=== PATIENT | female | born 1950 | race Caucasian/White ===

== ENCOUNTER → 2017-08-21 10:34 | Outpatient (CLI) | payer MEDICARE, OTHER, SELFPAY ==
[2017-08-21 11:58] LABS: INR 3.8 (0.9-1.3)
[2017-08-21 12:04] LABS: Erythrocyte Sedimentation Rate 21 MM/HR (0-20)
[2017-08-21 12:15] LABS: C-Reactive Protein Quant < 0.5 mg/dL (<1.0)
== END ==
PROVIDERS: Family Provider Internal Medicine Cardiovascular Disease; PCP Internal Medicine; Visit Provider Nurse Practitioner
DX: M05.079 Felty's syndrome, unspecified ankle and foot (principal); I48.91 Unspecified atrial fibrillation; Z79.01 Long term (current) use of anticoagulants
CPT/HCPCS: 36415; 85610; 85651; 86140

== ENCOUNTER → 2017-08-28 11:33 | Outpatient (CLI) | payer MEDICARE, OTHER, SELFPAY ==
[2017-08-28 12:31] LABS: Erythrocyte Sedimentation Rate 19 MM/HR (0-20)
[2017-08-28 16:23] LABS: C-Reactive Protein Quant < 0.5 mg/dL (<1.0)
== END ==
PROVIDERS: PCP Internal Medicine; Visit Provider Nurse Practitioner
DX: M05.079 Felty's syndrome, unspecified ankle and foot (principal)
CPT/HCPCS: 36415; 85651; 86140

== ENCOUNTER → 2017-09-02 13:42 | Outpatient (CLI) | payer MEDICARE, OTHER, SELFPAY ==
[2017-09-02 15:04] LABS: INR 3.5 (0.9-1.3); Prothrombin Time 37.1 SECONDS (10.1-12.7)
[2017-09-02 15:14] LABS: Erythrocyte Sedimentation Rate 6 MM/HR (0-20)
[2017-09-02 20:11] LABS: C-Reactive Protein Quant < 0.5 mg/dL (<1.0)
== END ==
PROVIDERS: PCP Internal Medicine; Visit Provider Internal Medicine Rheumatology
DX: I48.91 Unspecified atrial fibrillation (principal); Z79.01 Long term (current) use of anticoagulants; M05.079 Felty's syndrome, unspecified ankle and foot
CPT/HCPCS: 36415; 85610; 85651; 86140

== ENCOUNTER → 2017-09-09 13:18 | Outpatient (CLI) | payer MEDICARE, OTHER, SELFPAY ==
[2017-09-09 14:26] LABS: Erythrocyte Sedimentation Rate 21 MM/HR (0-20)
[2017-09-09 14:30] LABS: INR 2.6 (0.9-1.3); Prothrombin Time 28.5 SECONDS (10.1-12.7)
[2017-09-09 14:50] LABS: C-Reactive Protein Quant < 0.5 mg/dL (<1.0)
== END ==
PROVIDERS: Family Provider Internal Medicine Cardiovascular Disease; PCP Internal Medicine; Visit Provider Nurse Practitioner
DX: I48.91 Unspecified atrial fibrillation (principal); Z79.01 Long term (current) use of anticoagulants; M05.079 Felty's syndrome, unspecified ankle and foot
CPT/HCPCS: 36415; 85610; 85651; 86140

== ENCOUNTER → 2017-09-16 10:15 | Outpatient (CLI) | payer MEDICARE, OTHER, SELFPAY ==
[2017-09-16 11:50] LABS: INR 4.3 (0.9-1.3); Prothrombin Time 46.6 SECONDS (10.1-12.7)
[2017-09-16 12:04] LABS: C-Reactive Protein Quant < 0.5 mg/dL (<1.0)
[2017-09-16 13:09] LABS: Erythrocyte Sedimentation Rate 18 MM/HR (0-20)
== END ==
PROVIDERS: Family Provider Internal Medicine Cardiovascular Disease; PCP Internal Medicine; Visit Provider Nurse Practitioner
DX: I48.91 Unspecified atrial fibrillation (principal); M05.079 Felty's syndrome, unspecified ankle and foot; Z79.01 Long term (current) use of anticoagulants
CPT/HCPCS: 36415; 85610; 85651; 86140

== ENCOUNTER → 2017-10-07 08:11 | Outpatient (CLI) | payer MEDICARE, OTHER, SELFPAY ==
--- NOTE | 2017-10-07 | DI.ECHO.S_ITS ---
[facility] +---------+ : : [address] : : : : [id number] : : : : Phone: [phone]---------+ Echocardiogram Report + + :Name: RON KENNEDY Study Date: 10/07/2017 Height: 60 in : :[facility] Weight: 125 lb : : Gender: Female BSA: 1.5 m2 : :: 1950 Age: 67 yrs BP: 140/96 mmHg: :Reason For Study: Pulmonary - 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 : :Ordering Physician: Dr. Swanson : :Aris Performed By: Neema Dinh : :Referring: LURDES SALGADO : + + Interpretation Summary The left ventricle is normal in size. Left ventricular systolic function is normal without focal wall motion abnormalities. The ejection fraction is estimated to be 55-60%. LVEF has not changed since prior study. Borderline right ventricular enlargement. There is a pacemaker lead in the right ventricle. Right ventricular systolic function is at the lower limits of normal. The right ventricular systolic pressure is estimated at 42 mmHg assuming a right atrial pressure of 3 mm Hg. Compared to the prior echo exam, there has been a decrease in the severity of pulmonary hypertension. The left atrium is severely dilated. The right atrium is severely dilated. There is mild to moderate mitral regurgitation. There is mild aortic regurgitation. There is moderate tricuspid regurgitation. All three have increased since prior study. The ascending aorta is mildly enlarged. Procedure: A two-dimensional transthoracic echocardiogram with color flow and Doppler was performed. The study quality was technically adequate. Comparison is made with the echocardiogram of 04-25-17. The patient has a paced rhythm. Left Ventricle: The left ventricle is normal in size. There is normal left ventricular wall thickness. Left ventricular systolic function is normal without focal wall motion abnormalities. The ejection fraction is estimated to be 55-60%. Diastolic function could not be accurately assessed due to paced rhythm. Right Ventricle: Borderline right ventricular enlargement. There is a pacemaker lead in the right ventricle. Right ventricular systolic function is at the lower limits of normal. Atria: The left atrium is severely dilated. The right atrium is severely dilated. The interatrial septum is intact with no evidence for an atrial septal defect. Mitral Valve: The mitral valve is grossly normal. There is mild to moderate mitral regurgitation. Aortic Valve: The aortic valve opens well. There is mild aortic regurgitation. Tricuspid Valve: The tricuspid valve leaflets are thin and pliable. There is moderate tricuspid regurgitation. The right ventricular systolic pressure is estimated at 42 mmHg assuming a right atrial pressure of 3 mm Hg. Compared to the prior echo exam, there has been a decrease in the severity of pulmonary hypertension. Pulmonic Valve: The pulmonic valve is not well visualized. There is mild pulmonic regurgitation. Great Vessels: The aortic root is normal size. The ascending aorta is mildly enlarged. The aortic arch is normal in size. The IVC is of normal diameter and collapses greater than 50% with a sniff. This suggests a low right atrial pressure of 3 mm Hg. Pericardium/ Pleura There is no pericardial effusion. There is no pleural effusion. MMode/2D Measurements & Calculations LVIDd: 4.2 cm Ao root diam: 3.1 cm LVIDs: 2.9 cm Aortic Jxn: 2.5 cm FS: 30.8 % asc Aorta Diam: 3.6 cm EPSS: 0.74 cm Ao Arch Diam (Prox Trans): 3.1 cm IVSd: 0.87 cm LVPWd: 0.74 cm LV prajapati. diameter/BSA (cm/m^2): 2.8 LV sys. diameter/BSA (cm/m^2): 1.9 LA dimension: 5.0 cm RA long axis: 6.2 cm LA A2 area: 32.1 cm2 RA area: 27.0 cm2 LA A4 area: 32.0 cm2 RA vol: 99.8 ml LA length (vol): 6.8 cm RA : 65.3 ml/m2 LA vol: 128.7 ml IVC diam: 1.6 cm LA vol index: 84.2 ml/m2 RVDd major: 5.6 cm RVD1 (basal): 3.8 cm RVD2 (mid): 3.2 cm TAPSE: 1.9 cm Doppler Measurements & Calculations Ao V2 max: 107.7 cm/sec AI P1/2t: 588.4 msec Ao V2 mean: 72.9 cm/sec AI dec slope: 259.7 cm/sec2 Ao max P.6 mmHg Ao mean P.5 mmHg Ao V2 VTI: 20.6 cm Med Peak E' Jamil: 5.1 cm/sec TR max jamil: 310.5 cm/sec Lat Peak E' Jamil: 11.7 cm/sec TR max P.6 mmHg MV P1/2t: 61.7 msec PA V2 max: 64.4 cm/sec MR ERO: 0.17 cm2 PA V2 mean: 40.6 cm/sec PA mean P.81 mmHg PA Accel Time: 0.09 sec MV V2 mean: 40.9 cm/sec MV P1/2t max jamil: 77.2 cm/sec MV mean P.86 mmHg MVA(P1/2t): 3.6 cm2 MV V2 VTI: 13.4 cm MR flow rate: 114.2 cm3/sec MR PISA radius: 0.69 cm Reading Physician:PM
== END ==
PROVIDERS: Family Provider Internal Medicine Cardiovascular Disease; PCP Internal Medicine; Visit Provider Internal Medicine Critical Care Medicine
DX: I27.20 Pulmonary hypertension, unspecified (principal)
CPT/HCPCS: 93306

== ENCOUNTER → 2017-11-01 08:32 | Outpatient (CLI) | payer MEDICARE, OTHER, SELFPAY ==
[2017-11-01 10:37] LABS: INR 3.2 (0.9-1.3); Prothrombin Time 35.9 SECONDS (10.1-12.7)
[2017-11-01 10:47] LABS: Blood Urea Nitrogen 27 mg/dL (7-17); Calcium 9.4 mg/dL (8.4-10.2); Carbon Dioxide 37 mmol/L (22-32); Chloride 91 mmol/L (98-107); Glucose 108 mg/dL (80-110); HEMOLYSIS < 15 (0-50); Potassium 4.5 mmol/L (3.4-5.1); Sodium 137 mmol/L (137-145)
== END ==
PROVIDERS: PCP Internal Medicine; Visit Provider Internal Medicine
DX: I48.91 Unspecified atrial fibrillation (principal); Z79.01 Long term (current) use of anticoagulants; I10 Essential (primary) hypertension; I27.20 Pulmonary hypertension, unspecified
CPT/HCPCS: 36415; 80048; 85610

== ENCOUNTER → 2017-11-11 09:31 | Outpatient (CLI) | payer MEDICARE, OTHER, SELFPAY | PROVIDERS: Family Provider Internal Medicine Cardiovascular Disease; PCP Internal Medicine; Visit Provider Internal Medicine Rheumatology | DX: M85.851 Other specified disorders of bone density and structure, right thigh (principal); Z78.0 Asymptomatic menopausal state; Z79.52 Long term (current) use of systemic steroids; Z90.722 Acquired absence of ovaries, bilateral | CPT/HCPCS: 77080 ==

== ENCOUNTER → 2017-11-25 11:42 | Outpatient (CLI) | payer MEDICARE, OTHER, SELFPAY ==
[2017-11-25 11:58] LABS: Bacteria Urine None Seen; RBC Urine None Seen (0-5/HPF); WBC Urine None Seen (0-5/HPF)
[2017-11-25 12:31] LABS: Appearance Urine UA CLEAR; Bilirubin Urine UA NEGATIVE (NEGATIVE); Color Urine UA YELLOW; Glucose Urine UA NEGATIVE (Normal); Ketones Urine UA NEGATIVE (NEGATIVE); Leukocyte Esterase Urine UA NEGATIVE (NEGATIVE); Nitrite Urine UA Negative (Negative); Occult Blood Urine UA NEGATIVE (Negative); Protein Urine UA NEGATIVE (Negative); Specific Gravity Urine UA <=1.005 (1.000-1.035); Urobilinogen Urine UA 0.2 E.U./dL (0.2)
[2017-11-25 12:33] LABS: Add Manual Diff / Slide Review NO; Basophils Percent Auto 0.5 % (0-2); Eosinophils Percent Auto 0.7 % (2-4); Hemoglobin 12.6 g/dL (12.0-16.0); Lymphocytes Percent Auto 4.8 % (25-40); Mean Corpuscular HGB Conc 33.2 % (30-36); Mean Corpuscular Hemoglobin 32.4 PG (26-34); Mean Corpuscular Volume 97.6 fL (80-100); Monocytes Percent Auto 6.2 % (3-14); Neutrophils Absolute Auto 6100 /uL (3000-5900); Neutrophils Percent Auto 87.8 % (50-75); Platelet Count 191 X10^3/uL (150-400); Red Cell Distribution Width 13.5 % (11.6-14.8)
[2017-11-25 12:43] LABS: Culture Indicated Urine Cult Not Indicated; Urine Comments Microscopic Normal
[2017-11-25 13:13] LABS: Alanine Aminotransferase 25 IU/L (9-52); Albumin 4.4 g/dL (3.5-5.0); Albumin Globulin Ratio 1.6 (1.0-2.8); Alkaline Phosphatase 53 U/L (38-126); Aspartate Aminotransferase 33 IU/L (14-36); Bilirubin Total 0.8 mg/dL (0.2-1.3); Blood Urea Nitrogen 19 mg/dL (7-17); Calcium 9.3 mg/dL (8.4-10.2); Carbon Dioxide 34 mmol/L (22-32); Chloride 99 mmol/L (98-107); Erythrocyte Sedimentation Rate 18 MM/HR (0-20); Globulin 2.8 g/dL (1.7-4.1); Glucose 88 mg/dL (80-110); HEMOLYSIS < 15 (0-50); Potassium 3.7 mmol/L (3.4-5.1); Sodium 143 mmol/L (137-145); Total Protein 7.2 g/dL (6.3-8.2)
[2017-11-25 13:18] LABS: C-Reactive Protein Quant < 0.5 mg/dL (<1.0)
[2017-11-27 14:18] LABS: DNA (DS) Antibody < 1 IU/mL (< 5)
[2017-11-27 14:38] LABS: Complement C3 116 mg/dL (83-193)
[2017-11-28 07:59] LABS: Complement Total CH50 > 60 U/mL (31-60)
== END ==
PROVIDERS: Family Provider Internal Medicine Rheumatology; PCP Internal Medicine; Visit Provider Internal Medicine Critical Care Medicine
DX: M32.9 Systemic lupus erythematosus, unspecified (principal)
CPT/HCPCS: 36415; 80053; 81001; 85025; 85651; 86140; 86160; 86162; 86225

== ENCOUNTER → 2018-03-10 12:52 | Outpatient (CLI) | payer MEDICARE, OTHER, SELFPAY ==
[2017-12-24 14:02] VITALS: BMI 26.4
--- NOTE | 2018-03-14 14:39 | PM.PFT.1 ---
Pulmonary Function Test Referral & Results Date Patient Seen: 03/10/18 Requesting provider: Hilario Burden Results: The spirometry demonstrates an FVC of 1.60 L which is 60% of predicted. The FEV1 was measured at 1.20 L which is 60% of predicted. The FEV1/FVC ratio was 75 which is 99% of predicted. Following the administration of bronchodilator there was a 17% improvement in FEF 25-75%. Lung volumes show an SVC of 1.77 L which is 60% of predicted. The diffusing capacity was measured at 15.35 which is 75% of predicted. No hemoglobin value was provided, so no correction for potential anemia could be made, if appropriate. The maximum voluntary ventilation was reduced Interpretation: This study demonstrates moderately severe obstructive lung disease with limited evidence of benefit following bronchodilator, particularly small airway flow based on some improvement in FEF 25-75% as above There is also reduction in lung volumes suggesting moderate restrictive lung disease There is also mild to moderate reduction in diffusing capacity suggesting element of disease at the capillary alveolar level.
== END ==
PROVIDERS: Family Provider Internal Medicine Rheumatology; PCP Internal Medicine; Visit Provider Internal Medicine Critical Care Medicine
DX: J44.9 Chronic obstructive pulmonary disease, unspecified (principal)
CPT/HCPCS: 94060; 94726; 94729

== ENCOUNTER 2018-06-23 04:02 | Emergency (ER) | payer MEDICARE, OTHER, SELFPAY ==
[2017-12-24 14:02] VITALS: BMI 26.4
[2018-06-23] VITALS (7 sets, daily range): BP systolic 148–179; BP diastolic 87–135; PULSE 71–81; RESP 16–31; TEMP 36.8; O2SAT 96–100; BMI 25.4
--- NOTE | 2018-06-23 04:06 | DI.RAD.S_ITS ---
PROCEDURE: XR CHEST 1V INDICATIONS: Chest pain TECHNIQUE: One view of the chest was acquired. COMPARISON: [facility], , CHEST 1 VIEW, 03/20/2017, 15:04. FINDINGS: Surgical changes and devices: There is a cardiac pacemaker in appropriate position. Lungs and pleura: Lungs are clear. No pleural effusions or pneumothorax. Mediastinum: Mediastinal contours appear normal. Heart size is moderately increased. Bones and chest wall: No suspicious bony lesions. Overlying soft tissues appear unremarkable. Note is made of bilateral breast prostheses. IMPRESSION: Moderate cardiomegaly. No pulmonary edema. No significant discrepancy with the ER preliminary interpretation. Dictated by: Philip Bang M.D. on 06/23/2018 at 8:26 Approved by: Phiilp Bang M.D. on 06/23/2018 at 8:26
--- NOTE | 2018-06-23 04:07 | ED_ITS ---
HPI - Chest Pain General Chief Complaint: Chest Pain Stated Complaint: CHEST PAIN HAS PACEMAKER Time Seen by Provider: 06/23/18 04:05 Source: patient Mode of arrival: wheelchair Limitations: no limitations History of Present Illness HPI narrative: Patient is a 67-year-old female here for evaluation of left-sided chest pain. She states that she started pain in the left side of her chest that woke her up from sleep approximately 30 min prior to arrival. She states she is short of breath because of this pain. She does have a pacemaker in place secondary to AFib. She states the pain has been consistent since the onset. It is reproducible with touching the left side of her chest. Hurts to the point where she can take a very big deep breath. Has not tried anything for the symptoms prior to arrival Related Data Home Medications Medication Instructions Recorded Confirmed potassium chloride [Klor-Con] 20 meq PO TIDCC #0 03/20/17 11/07/17 prednisone 50 mg PO QAM #0 06/17/17 11/07/17 [CELCEPT] #0 07/22/17 11/07/17 fluticasone propionate-salmeterol 2 puff INHALATION BID 11/07/17 11/07/17 115 mcg-21 mcg/actuation HFA inhaler metoprolol succinate ER 100 mg 100 mg PO BID tab 11/07/17 11/07/17 tablet,extended release 24 hr oxybutynin chloride 5 mg tablet 5 mg PO ONCE tab 11/07/17 11/07/17 sotalol 80 mg tablet 80 mg PO Q12H 11/07/17 11/07/17 Previous Rx's Medication Instructions Recorded furosemide 60 mg PO QAM #270 tab 03/22/17 levothyroxine [Synthroid] 125 mcg PO QDAY #90 tab 08/27/17 lidocaine 4 % topical patch 1 patch TOP Q12H PRN #30 each 11/07/17 lovastatin 20 mg PO HS #90 tab 01/09/18 magnesium oxide 400 mg PO BID #60 tab 01/27/18 warfarin [Coumadin] 3 mg PO QDAY #90 tab 02/24/18 gabapentin [Neurontin] 1 - 2 tab PO TIDP PRN #120 cap 04/21/18 omeprazole 40 mg PO BID #60 cap 06/16/18 cyclobenzaprine 10 mg PO TID PRN #10 tab 06/23/18 Allergies Allergy/AdvReac Type Severity Reaction Status Date / Time doxycycline [DOXYCYCLINE] Allergy Mild HIVES Verified 11/07/17 09:17 Sulfa (Sulfonamide Allergy Mild HIVES Verified 11/07/17 09:17 Antibiotics) [SULFA (SULFONAMIDE ANTIBIOTICS)] tetracycline [TETRACYCLINE] Allergy Mild HIVES Verified 11/07/17 09:17 sulfamethoxazole AdvReac Intermediate UPSET Verified 11/07/17 09:17 [From BACTRIM] STOMACH trimethoprim [From BACTRIM] AdvReac Intermediate UPSET Verified 11/07/17 09:17 STOMACH Review of Systems Constitutional Denies fatigue and Denies headache(s) ENT Ears, Nose, Mouth, and Throat: Denies dizziness and Denies headache(s) Cardiovascular Reports chest pain, Denies rapid heart rate, Denies edema and Denies slow heart rate Respiratory Reports pain on inspiration Gastrointestinal Gastrointestinal: Denies abdominal pain, Denies nausea and Denies vomiting Genitourinary Denies dysuria Musculoskeletal Denies myalgias and Denies arthralgias Integumentary/Breasts Denies rash Neurologic Denies dizziness and Denies headache(s) Endocrine Denies fatigue Hematologic/Lymphatic Denies easy bleeding and Denies easy bruising Allergic/Immunologic Denies urticaria [facility] Medical History Systemic lupus erythematosus (SLE) in adult (Chronic) Pulmonary hypertension (Chronic) COPD (chronic obstructive pulmonary disease) (Chronic) 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 (Chronic 10/26/10) Hyperlipidemia (Chronic 10/26/10) 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/12) Atrial fibrillation (Chronic 08/19/12) Cardiomyopathy (Chronic 09/03/13) Diastolic dysfunction (Chronic 09/03/13) Acquired hypothyroidism (Chronic 09/14/16) CHF (congestive heart failure) (Chronic) Cervical radiculopathy (Chronic) Chronic neutropenia (Chronic 06/18/17) Cubital tunnel syndrome on left (Chronic 2015) Neck pain on left side (Chronic) Pancytopenia (Chronic 2013) Plasma cell dyscrasia (Chronic) SVT (supraventricular tachycardia) (Chronic) 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) Urinary frequency (Chronic) Anemia, normocytic normochromic (Resolved 10/22/16) Cellulitis of right ankle (Resolved 2006) Colon polyps (Resolved 2005) 0 (Resolved) SD (myocardial infarction) (Resolved 08/2011) Measles (Resolved) Mumps (Resolved) Shingles (Resolved 2006) Tachy-ember syndrome (Resolved) Surgical History History of appendectomy (Resolved ~196) History of bone marrow biopsy (Resolved 01/22/17) History of breast augmentation (Resolved ~1979) History of cardiac catheterization (Resolved 08/2011) History of cardioversion (Resolved 08/2011) History of cardioversion (Resolved 09/2016) History of colonoscopy with polypectomy (Resolved 08/20/16) History of esophagogastroduodenoscopy (EGD) (Resolved 08/20/16) History of inguinal hernia repair (Resolved) History of permanent cardiac pacemaker placement (Resolved 2011) History of ventral hernia repair (Resolved) S/P cubital tunnel release (Resolved 2015) S/P total abdominal hysterectomy and bilateral salpingo-oophorectomy (Resolved 1984) Status post tonsillectomy and adenoidectomy (Resolved) Family History Father CAD (coronary artery disease) 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 Acute coronary syndrome Arteriosclerosis Atherosclerosis Brother Hearing deficit Brother Cancer Gout Mother No problems noted. Family/Other Cancer Social History Smoking Status: Never smoker Social History Smoking Status: Never smoker Exam Initial Vital Signs Initial Vital Signs: Vital Signs Temperature 98.2 F 06/23/18 04:18 Pulse Rate 78 06/23/18 04:18 Respiratory Rate 25 H 06/23/18 04:18 Blood Pressure 164/114 H 06/23/18 04:18 Pulse Oximetry 99 06/23/18 04:18 Const General: cooperative, well developed, well groomed and No acute distress Orientation: alert, awake and oriented x3 HENMT Head: normal to inspection and normocephalic Chest Chest: No crepitus and tenderness Other: Tenderness to palpation left lower chest wall and left flank area that she states is the pain that brought her in. Resp Effort & Inspection: normal respiratory effort Auscultation: clear to auscultation bilaterally Cardio Rate: regular rate GI Inspection: non-distended Palpation: soft Skin Lesions: no lesions Rashes: no rashes Neuro General: alert, awake and oriented x3 Cognition: normal cognition Speech: speech normal Extrem General: normal to inspection and capillary refill normal Psych Appearance: grossly normal and well kempt Course Orders Ordered: ED Orders 06/23/18 EKG-12 Lead Stat 06/23/18 04:06 XR chest 1V Stat 06/23/18 04:20 B Type Natriuretic Peptide Stat Complete Blood Count AUTO DIFF Stat Comprehensive Metabolic Panel Stat Lipase Stat Partial Thromboplastin Time Stat Prothrombin Time INR Stat Troponin I Stat 06/23/18 06:26 Troponin I Stat Discontinued Medications Cyclobenzaprine HCl (Flexeril) 10 mg PO NOW ONE Stop: 06/23/18 05:22 Last Admin: 06/23/18 05:44 Dose: 10 mg Ketorolac Tromethamine (Toradol) 30 mg IV NOW ONE Stop: 06/23/18 05:22 Last Admin: 06/23/18 05:44 Dose: 30 mg Morphine Sulfate (Morphine) 4 mg IV NOW ONE Stop: 06/23/18 04:28 Last Admin: 06/23/18 04:39 Dose: 4 mg Vital Signs - 8 hr 06/23/18 04:18 06/23/18 04:33 06/23/18 05:04 Temperature 98.2 F Pulse Rate 78 74 81 Respiratory Rate 25 H 31 H 30 H Blood Pressure 164/114 H Blood Pressure [Left Arm] 171/112 H 179/135 H Pulse Oximetry 99 100 99 06/23/18 05:30 06/23/18 06:00 06/23/18 06:30 Temperature Pulse Rate 71 79 74 Respiratory Rate 29 H 20 28 H Blood Pressure Blood Pressure [Left Arm] 156/87 H 148/102 H 160/97 H Pulse Oximetry 99 96 96 MDM - Chest Pain Lab Data Attestation: I reviewed the patient's lab results. Result diagrams: 06/23/18 04:20 06/23/18 04:20 Lab Results 06/23/18 06/23/18 06/23/18 Range/Units 04:20 04:20 04:20 WBC 7.4 (4.5-11.0) X10^3/uL RBC 4.49 (4.0-5.2) X10^6/uL Hgb 14.3 (12.0-16.0) g/dL Hct 43.6 (36-46) % MCV 97.2 (80-100) fL MCH 31.8 (26-34) PG MCHC 32.7 (30-36) % RDW 13.6 (11.6-14.8) % Plt Count 143 L (150-400) X10^3/uL Neut % (Auto) 87.4 H (50-75) % Lymph % (Auto) 5.9 L (25-40) % Ashley % (Auto) 4.8 (3-14) % Eos % (Auto) 0.8 L (2-4) % Baso % (Auto) 1.1 (0-2) % Neut # (Auto) 6500 (9953-5047) /uL Lymph # (Auto) 400 L (0122-7268) /uL Ashley # (Auto) 400 (0-900) /uL Eos # (Auto) 100 (0-450) /uL Baso # (Auto) 100 (0-100) /uL PT 12.9 H (10.1-12.7) SECONDS INR 1.1 (0.9-1.3) APTT 24 L (26.4-36.2) SECONDS Sodium 139 (137-145) mmol/L Potassium 4.0 (3.4-5.1) mmol/L Chloride 100 (98-107) mmol/L Carbon Dioxide 27 (22-32) mmol/L BUN 14 (7-17) mg/dL Creatinine 0.80 (0.52-1.04) mg/dL Estimated GFR > 60.0 (>60) mL/min BUN/Creatinine Ratio 17.5 (6-22) Glucose 104 (80-110) mg/dL Calcium 9.0 (8.4-10.2) mg/dL Total Bilirubin 0.4 (0.2-1.3) mg/dL AST 37 H (14-36) IU/L ALT 25 (9-52) IU/L Alkaline Phosphatase 72 (38-126) U/L Troponin I < 0.012 (0.01-0.034) ng/mL B-Natriuretic Peptide 265 H (<100) Total Protein 7.9 (6.3-8.2) g/dL Albumin 4.6 (3.5-5.0) g/dL Globulin 3.3 (1.7-4.1) g/dL Albumin/Globulin Ratio 1.4 (1.0-2.8) Lipase 201 (23-300) U/L 06/23/ Range/Units 06:26 WBC (4.5-11.0) X10^3/uL RBC (4.0-5.2) X10^6/uL Hgb (12.0-16.0) g/dL Hct (36-46) % MCV (80-100) fL MCH (26-34) PG MCHC (30-36) % RDW (11.6-14.8) % Plt Count (150-400) X10^3/uL Neut % (Auto) (50-75) % Lymph % (Auto) (25-40) % Ashley % (Auto) (3-14) % Eos % (Auto) (2-4) % Baso % (Auto) (0-2) % Neut # (Auto) (0562-9211) /uL Lymph # (Auto) (2720-3236) /uL Ashley # (Auto) (0-900) /uL Eos # (Auto) (0-450) /uL Baso # (Auto) (0-100) /uL PT (10.1-12.7) SECONDS INR (0.9-1.3) APTT (26.4-36.2) SECONDS Sodium (137-145) mmol/L Potassium (3.4-5.1) mmol/L Chloride (98-107) mmol/L Carbon Dioxide (22-32) mmol/L BUN (7-17) mg/dL Creatinine (0.52-1.04) mg/dL Estimated GFR (>60) mL/min BUN/Creatinine Ratio (6-22) Glucose (80-110) mg/dL Calcium (8.4-10.2) mg/dL Total Bilirubin (0.2-1.3) mg/dL AST (14-36) IU/L ALT (9-52) IU/L Alkaline Phosphatase (38-126) U/L Troponin I 0.013 (0.01-0.034) ng/mL B-Natriuretic Peptide (<100) Total Protein (6.3-8.2) g/dL Albumin (3.5-5.0) g/dL Globulin (1.7-4.1) g/dL Albumin/Globulin Ratio (1.0-2.8) Lipase (23-300) U/L Imaging Data Chest x-ray: Attestation: I personally reviewed and interpreted this imaging study as follows: My impression: No acute process, normal size heart, no pneumothorax, pacemaker leads intact without fractures ECG Data Attestation: I personally reviewed and interpreted this ECG as follows: Prior ECG tracings: not available for review Interpretation: Atrial fibrillation Ventricular rate 84 Normal axis Normal QRS Inverted T-waves 2 [address] T wave changes MDM Narrative Medical decision making narrative: patient with reproducible left-sided chest discomfort localized to the lower ribs. She states that this was the symptoms that brought her into the emergency department. She states that this was the symptoms that was causing her to have problems breathing. There is no rash over the area concerning for zoster. Troponins negative x2. EKG is unremarkable. Chest x-ray is unremarkable, No signs of pneumonia. Given the fact that the symptoms that brought her into the emergency department for reproducible left fl ank pain I do have low suspicion for ACS. She reported improvement after medications here in the ER. Will send home with Toradol. She was given return precautions. She expressed understanding and agreement with plan. Discharge Plan Departure Patient Disposition: Home Clinical Impression: Acute chest wall pain Instructions: DI for Atypical Chest Pain Activity Restrictions/Additional Instructions: Take the medications as directed. Contact her primary care doctor for follow- up. Return to the emergency department for any new or worsening symptoms Prescriptions: New cyclobenzaprine 10 mg tablet 10 mg PO TID PRN (Reason: muscle spasm) Qty: 10 RF: 0 No Action potassium chloride [Klor-Con] 20 MEQ packet 20 meq PO TIDCC Qty: 0 RF: 0 furosemide 20 MG tablet 60 mg PO QAM Qty: 270 RF: 11 prednisone 10 MG tablet 50 mg PO QAM Qty: 0 RF: 0 [CELCEPT] Qty: 0 RF: 0 levothyroxine [Synthroid] 125 mcg tablet 125 mcg PO QDAY Qty: 90 RF: 3 lovastatin 20 mg tablet 20 mg PO HS Qty: 90 RF: 3 magnesium oxide 400 mg (241.3 mg magnesium) tablet 400 mg PO BID Qty: 60 RF: 3 warfarin [Coumadin] 3 mg tablet 3 mg PO QDAY Qty: 90 RF: 0 gabapentin [Neurontin] 300 mg capsule 1 - 2 tab PO TIDP PRNQty: 120 RF: 3 omeprazole 40 mg capsule,delayed release(DR/EC) 40 mg PO BID Qty: 60 RF: 3 oxybutynin chloride 5 mg tablet 5 mg PO ONCE RF: 0 metoprolol succinate 100 mg tablet extended release 24 hr 100 mg PO BID RF: 0 sotalol 80 mg tablet 80 mg PO Q12H RF: 0 fluticasone propion-salmeterol [Advair HFA] 115-21 mcg/actuation HFA aerosol inhaler 2 puff INHALATION BID RF: 0 lidocaine 4 % adhesive patch,medicated 1 patch TOP Q12H PRN (Reason: pain) Qty: 30 RF: 2 Referrals: Sky Hurst MD [Primary Care Provider] -
[2018-06-23 04:28] LABS: Add Manual Diff / Slide Review NO; Basophils Absolute Auto 100 /uL (0-100); Basophils Percent Auto 1.1 % (0-2); Eosinophils Absolute Auto 100 /uL (0-450); Eosinophils Percent Auto 0.8 % (2-4); Hematocrit 43.6 % (36-46); Hemoglobin 14.3 g/dL (12.0-16.0); Lymphocytes Absolute Auto 400 /uL (1100-4500); Lymphocytes Percent Auto 5.9 % (25-40); Mean Corpuscular HGB Conc 32.7 % (30-36); Mean Corpuscular Hemoglobin 31.8 PG (26-34); Mean Corpuscular Volume 97.2 fL (80-100); Monocytes Absolute Auto 400 /uL (0-900); Monocytes Percent Auto 4.8 % (3-14); Neutrophils Absolute Auto 6500 /uL (1500-7000); Neutrophils Percent Auto 87.4 % (50-75); Platelet Count 143 X10^3/uL (150-400); Red Blood Cell Count 4.49 X10^6/uL (4.0-5.2); Red Cell Distribution Width 13.6 % (11.6-14.8); White Blood Cell Count 7.4 X10^3/uL (4.5-11.0)
[2018-06-23 04:34] LABS: INR 1.1 (0.9-1.3); Prothrombin Time 12.9 SECONDS (10.1-12.7)
[2018-06-23 04:37] LABS: PTT Partial Thromboplastin Tim 24 SECONDS (26.4-36.2)
[2018-06-23 04:38] LABS: Alanine Aminotransferase 25 IU/L (9-52); Albumin 4.6 g/dL (3.5-5.0); Albumin Globulin Ratio 1.4 (1.0-2.8); Alkaline Phosphatase 72 U/L (38-126); Aspartate Aminotransferase 37 IU/L (14-36); BUN Creatinine Ratio 17.5 (6-22); Bilirubin Total 0.4 mg/dL (0.2-1.3); Blood Urea Nitrogen 14 mg/dL (7-17); Carbon Dioxide 27 mmol/L (22-32); Chloride 100 mmol/L (98-107); Estimated Glomerular Filt Rate > 60.0 mL/min (>60); Globulin 3.3 g/dL (1.7-4.1); Glucose 104 mg/dL (80-110); HEMOLYSIS < 15 (0-50); Lipase 201 U/L (23-300); Sodium 139 mmol/L (137-145); Total Protein 7.9 g/dL (6.3-8.2)
[2018-06-23] MEDS: MORPHINE 4 MG/ML INJ IV (04:39)
[2018-06-23 04:48] LABS: B Type Natriuretic Peptide 265 (<100)
[2018-06-23 04:49] LABS: Troponin I < 0.012 ng/mL (0.01-0.034)
[2018-06-23] MEDS: CYCLOBENZAPRINE 10 MG TABLET PO (05:44)
[2018-06-23] MEDS: KETOROLAC 60 MG/2 ML VIAL 30 MG IV (05:44)
[2018-06-23 07:04] LABS: Troponin I 0.013 ng/mL (0.01-0.034)
== END 2018-06-23 07:50 | disposition home or self-care (01) ==
PROVIDERS: Emergency Provider Emergency Medicine; Family Provider Internal Medicine Rheumatology; PCP Internal Medicine
DX: R07.89 Other chest pain (principal); R06.02 Shortness of breath; Z95.0 Presence of cardiac pacemaker
CPT/HCPCS: 36415; 36591; 71045; 80053; 83690; 83880; 84484; 85025; 85610; 85730; 93005; 96374; 96375; 99284; 99285; J1885; J2270

== ENCOUNTER 2018-06-25 09:05 | Emergency (ER) | payer MEDICARE, OTHER, SELFPAY ==
[2017-12-24 14:02] VITALS: BMI 26.4
[2018-06-25 09:16] VITALS: BP 159/86; PULSE 76; RESP 18; TEMP 36.6; O2SAT 100
--- NOTE | 2018-06-25 10:48 | DI.RAD.S_ITS ---
PROCEDURE: XR RIBS LT MIN 3V W CXR1V INDICATIONS: pain fall 2 days ago TECHNIQUE: 2 views of the left ribs were acquired, along with a single view chest. COMPARISON: None. FINDINGS: Surgical changes and devices: Left chest wall cardiac device leads are seen in the region of right atrium and right ventricle. Left breast implant is seen. Bones and chest wall: No fractures or dislocations. No suspicious bony lesions. Overlying soft tissues appear unremarkable. Lungs and pleura: No pleural effusions or pneumothorax. Lungs appear clear. The no focal infiltrate. Linear scarring/atelectasis in left midlung field is seen Mediastinum: Mediastinal contours appear normal. Heart size is enlarged. IMPRESSION: No definite displaced left rib fracture is seen. Linear scarring/atelectasis in left mid to lower lung field. No focal infiltrate, pleural effusion or pneumothorax. Dictated by: Wayne Powell M.D. on 06/25/2018 at 11:26 Approved by: Wayne Powell M.D. on 06/25/2018 at 11:30
[2018-06-25] MEDS: KETOROLAC 60 MG/2 ML VIAL 30 MG IM (11:22)
[2018-06-25 11:30] VITALS: BP 157/107; PULSE 79; RESP 21; O2SAT 99
--- NOTE | 2018-06-25 11:32 | PC.NURSE ---
reports, had a fall 3 days ago. reports, with sweaty with pain.
--- NOTE | 2018-06-25 11:32 | PC.NURSE ---
reports, fall 3 days ago, now with left rib, radiating to the back. hurts worsen with movement, denies vomiting.
[2018-06-25 11:37] LABS: Add Manual Diff / Slide Review NO; Basophils Absolute Auto 100 /uL (0-100); Basophils Percent Auto 1.2 % (0-2); Eosinophils Absolute Auto 100 /uL (0-450); Eosinophils Percent Auto 2.6 % (2-4); Hematocrit 41.6 % (36-46); Hemoglobin 13.9 g/dL (12.0-16.0); Lymphocytes Absolute Auto 400 /uL (1100-4500); Lymphocytes Percent Auto 8.1 % (25-40); Mean Corpuscular HGB Conc 33.3 % (30-36); Monocytes Absolute Auto 500 /uL (0-900); Monocytes Percent Auto 10.5 % (3-14); Neutrophils Absolute Auto 4100 /uL (1500-7000); Neutrophils Percent Auto 77.6 % (50-75); Platelet Count 127 X10^3/uL (150-400); Red Blood Cell Count 4.34 X10^6/uL (4.0-5.2); Red Cell Distribution Width 13.4 % (11.6-14.8); White Blood Cell Count 5.2 X10^3/uL (4.5-11.0)
[2018-06-25 11:50] LABS: Alanine Aminotransferase 23 IU/L (9-52); Albumin 4.5 g/dL (3.5-5.0); Albumin Globulin Ratio 1.3 (1.0-2.8); Alkaline Phosphatase 56 U/L (38-126); Aspartate Aminotransferase 33 IU/L (14-36); Bilirubin Total 1.2 mg/dL (0.2-1.3); Blood Urea Nitrogen 14 mg/dL (7-17); Carbon Dioxide 29 mmol/L (22-32); Chloride 100 mmol/L (98-107); Creatine Kinase 148 U/L (30-135); Estimated Glomerular Filt Rate > 60.0 mL/min (>60); Globulin 3.4 g/dL (1.7-4.1); Glucose 77 mg/dL (80-110); Lipase 72 U/L (23-300); Potassium 4.4 mmol/L (3.4-5.1); Sodium 138 mmol/L (137-145); Total Protein 7.9 g/dL (6.3-8.2)
[2018-06-25 12:02] LABS: Troponin I < 0.012 ng/mL (0.01-0.034)
[2018-06-25 12:07] LABS: HEMOLYSIS 66 (0-50)
[2018-06-25 12:47] VITALS: BP 158/99; PULSE 74; RESP 25; O2SAT 100
--- NOTE | 2018-06-25 13:16 | ED_ITS ---
HPI - Chest Pain General Chief Complaint: Chest Pain Stated Complaint: ABD/BACK PAIN Time Seen by Provider: 06/25/18 10:28 Source: patient and old records reviewed Mode of arrival: ambulatory Limitations: no limitations History of Present Illness HPI narrative: Patient is a 67-year-old female presents with left-sided chest pain. She was seen evaluated here few days ago. She actually fell then started having some left chest pain hurts every time she moves or breathes She has these spasms across her left chest. He denies any heart palpitations or shortness of breath with exertion. She was given Flexeril to help with the muscle spasm he says it does not seem to be working. MD complaint: chest pain Duration: intermittent Related Data Home Medications Medication Instructions Recorded Confirmed potassium chloride [Klor-Con] 20 meq PO TIDCC #0 03/20/17 11/07/17 prednisone 50 mg PO QAM #0 06/17/17 11/07/17 [CELCEPT] #0 07/22/17 11/07/17 fluticasone propionate-salmeterol 2 puff INHALATION BID 11/07/17 11/07/17 115 mcg-21 mcg/actuation HFA inhaler metoprolol succinate ER 100 mg 100 mg PO BID tab 11/07/17 11/07/17 tablet,extended release 24 hr oxybutynin chloride 5 mg tablet 5 mg PO ONCE tab 11/07/17 11/07/17 sotalol 80 mg tablet 80 mg PO Q12H 11/07/17 11/07/17 Previous Rx's Medication Instructions Recorded furosemide 60 mg PO QAM #270 tab 03/22/17 levothyroxine [Synthroid] 125 mcg PO QDAY #90 tab 08/27/17 lidocaine 4 % topical patch 1 patch TOP Q12H PRN #30 each 11/07/17 lovastatin 20 mg PO HS #90 tab 01/09/18 magnesium oxide 400 mg PO BID #60 tab 01/27/18 warfarin [Coumadin] 3 mg PO QDAY #90 tab 02/24/18 gabapentin [Neurontin] 1 - 2 tab PO TIDP PRN #120 cap 04/21/18 omeprazole 40 mg PO BID #60 cap 06/16/18 cyclobenzaprine 10 mg PO TID PRN #10 tab 06/23/18 cyclobenzaprine 5 mg PO TID PRN #14 tab 06/25/18 lidocaine 1 patch TOP DAILY PRN #30 each 06/25/18 Allergies Allergy/AdvReac Type Severity Reaction Status Date / Time doxycycline [DOXYCYCLINE] Allergy Mild HIVES Verified 11/07/17 09:17 Sulfa (Sulfonamide Allergy Mild HIVES Verified 11/07/17 09:17 Antibiotics) [SULFA (SULFONAMIDE ANTIBIOTICS)] tetracycline [TETRACYCLINE] Allergy Mild HIVES Verified 11/07/17 09:17 sulfamethoxazole AdvReac Intermediate UPSET Verified 11/07/17 09:17 [From BACTRIM] STOMACH trimethoprim [From BACTRIM] AdvReac Intermediate UPSET Verified 11/07/17 09:17 STOMACH Review of Systems Review of Systems GENERAL: Denies chills, fatigue, malaise, fever, sweats, travel HEENT: Denies sinus pain, ear pain, sore throat, difficulty swallowing, neck pain RESPIRATORY: Denies dyspnea, cough, wheezing, hemoptysis, sputum. CARDIOVASCULAR: See HPI GASTROINTESTINAL: Denies nausea, vomiting, abdominal pain, diarrhea, constipation, melena. : Denies dysuria, frequency, incontinence, hematuria, urinary retention, flank pain. MUSCULOSKELETAL: Denies weakness, joint pain, or bony pain SKIN: No rash, no erythema, no pruritus NEUROLOGIC: Denies weakness, dizziness, headache, numbness, change in speech, confusion PSYCHIATRIC: No concerning psychosocial issues. 12 point review of systems is negative except for those stated above and HPI [facility] Medical History Systemic lupus erythematosus (SLE) in adult (Chronic) Pulmonary hypertension (Chronic) COPD (chronic obstructive pulmonary disease) (Chronic) 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 (Chronic 10/26/10) Hyperlipidemia (Chronic 10/26/10) USP current use of anticoagulant therapy (Chronic 08/19/12) Atrial fibrillation (Chronic 08/19/12) Cardiomyopathy (Chronic 09/03/13) Diastolic dysfunction (Chronic 09/03/13) Acquired hypothyroidism (Chronic 09/14/16) CHF (congestive heart failure) (Chronic) Cervical radiculopathy (Chronic) Chronic neutropenia (Chronic 06/18/17) Cubital tunnel syndrome on left (Chronic 2015) Neck pain on left side (Chronic) Pancytopenia (Chronic 2013) Plasma cell dyscrasia (Chronic) SVT (supraventricular tachycardia) (Chronic) 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) Urinary frequency (Chronic) Anemia, normocytic normochromic (Resolved 10/22/16) Cellulitis of right ankle (Resolved 2006) Colon polyps (Resolved 2005) 0 (Resolved) IN (myocardial infarction) (Resolved 08/2011) Measles (Resolved) Mumps (Resolved) Shingles (Resolved 2006) Tachy-ember syndrome (Resolved) Surgical History History of appendectomy (Resolved ~1960) History of bone marrow biopsy (Resolved 01/22/17) History of breast augmentation (Resolved ~1979) History of cardiac catheterization (Resolved 08/2011) History of cardioversion (Resolved 08/2011) History of cardioversion (Resolved 09/2016) History of colonoscopy with polypectomy (Resolved 08/20/16) History of esophagogastroduodenoscopy (EGD) (Resolved 08/20/16) History of inguinal hernia repair (Resolved) History of permanent cardiac pacemaker placement (Resolved 2011) History of ventral hernia repair (Resolved) S/P cubital tunnel release (Resolved 2015) S/P total abdominal hysterectomy and bilateral salpingo-oophorectomy (Resolved 1984) Status post tonsillectomy and adenoidectomy (Resolved) Family History (Updated 01/27/18 @ 09:41 by Ale Trotter) Father CAD (coronary artery disease) 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 Acute coronary syndrome Arteriosclerosis Atherosclerosis Brother Hearing deficit Brother Cancer Gout Mother No problems noted. Family/Other Cancer Social History Smoking Status: Never smoker Family History Father CAD (coronary artery disease) 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 Acute coronary syndrome Arteriosclerosis Atherosclerosis Brother Hearing deficit Brother Cancer Gout Mother No problems noted. Family/Other Cancer Social History Smoking Status: Never smoker Exam Initial Vital Signs Initial Vital Signs: Vital Signs Temperature 97.8 F 06/25/18 09:16 Pulse Rate 76 06/25/18 09:16 Respiratory Rate 18 06/25/18 09:16 Blood Pressure 159/86 H 06/25/18 09:16 Pulse Oximetry 100 06/25/18 09:16 GENERAL: Alert female and O x3 HEENT: Head atraumatic,EOMI, pupils reactive, CARDIOVASCULAR: Regular rate and rhythm without murmurs, rubs or gallops. Chest is tender left anterior side to palpation. While during exam is obvious she gets spasms and is in quite a bit of pain. RESPIRATORY: Breath sounds equal bilaterally, no wheezes rales or rhonchi. ABDOMEN: Soft, nontender. Normoactive bowel sounds all 4 quadrants. No guarding or rebound. EXTREMITIES: Normal range of motion, no clubbing or edema. Neurovascularly intact NEUROLOGICAL: Alert and oriented x4.Normal gait and speech. Cranial nerves II through XII grossly intact. SKIN: Warm, dry, no laceration, no petechiae, no rashes or lesions. Course Orders Ordered: Discontinued Medications Ketorolac Tromethamine (Toradol) 30 mg IM NOW ONE Stop: 06/25/18 10:49 Last Admin: 06/25/18 11:22 Dose: 30 mg Vital Signs - 8 hr 06/25/18 09:16 06/25/18 11:30 06/25/18 12:47 Temperature 97.8 F Pulse Rate 76 79 74 Respiratory Rate 18 21 25 H Blood Pressure 159/86 H Blood Pressure [Left Arm] 157/107 H 158/99 H Pulse Oximetry 100 99 100 06/25/18 13:37 Temperature Pulse Rate 73 Respiratory Rate 19 Blood Pressure Blood Pressure [Left Arm] 155/93 H Pulse Oximetry 98 MDM - Chest Pain Lab Data Attestation: I reviewed the patient's lab results. Result diagrams: 06/25/18 11:30 06/25/18 11:30 Lab Results 06/25/18 06/25/18 06/25/18 Range/Units 11:30 11:30 11:30 WBC 5.2 (4.5-11.0) X10^3/uL RBC 4.34 (4.0-5.2) X10^6/uL Hgb 13.9 (12.0-16.0) g/dL Hct 41.6 (36-46) % MCV 96.0 (80-100) fL MCH 32.0 (26-34) PG MCHC 33.3 (30-36) % RDW 13.4 (11.6-14.8) % Plt Count 127 L (150-400) X10^3/uL Neut % (Auto) 77.6 H (50-75) % Lymph % (Auto) 8.1 L (25-40) % [place]lier % (Auto) 10.5 (3-14) % Eos % (Auto) 2.6 (2-4) % Baso % (Auto) 1.2 (0-2) % Neut # (Auto) 4100 (3492-4682) /uL Lymph # (Auto) 400 L (9908-7144) /uL Collier # (Auto) 500 (0-900) /uL Eos # (Auto) 100 (0-450) /uL Baso # (Auto) 100 (0-100) /uL PT 15.8 H (10.1-12.7) SECONDS INR 1.4 H (0.9-1.3) Sodium 138 (137-145) mmol/L Potassium 4.4 (3.4-5.1) mmol/L Chloride 100 (98-107) mmol/L Carbon Dioxide 29 (22-32) mmol/L BUN 14 (7-17) mg/dL Creatinine 0.70 (0.52-1.04) mg/dL Estimated GFR > 60.0 (>60) mL/min BUN/Creatinine Ratio 20.0 (6-22) Glucose 77 L (80-110) mg/dL Calcium 9.0 (8.4-10.2) mg/dL Total Bilirubin 1.2 (0.2-1.3) mg/dL AST 33 (14-36) IU/L ALT 23 (9-52) IU/L Alkaline Phosphatase 56 (38-126) U/L Total Creatine Kinase 148 H (30-135) U/L CK-MB (CK-2) 1.50 (<2.37) ng/mL CK-MB (CK-2) Rel Index 1.0 L (1.5-5.0) % Troponin I < 0.012 (0.01-0.034) ng/mL Total Protein 7.9 (6.3-8.2) g/dL Albumin 4.5 (3.5-5.0) g/dL Globulin 3.4 (1.7-4.1) g/dL Albumin/Globulin Ratio 1.3 (1.0-2.8) Lipase 72 D (23-300) U/L Urine Dip Bedside Urine Glucose Negative Bedside Urine Bilirubin - Negative Bedside Urine Ketone - Negative Urine Specific [place] 1.015 Bedside Urine Occult Blood - Negative Bedside Urine pH 6.0 Bedside Urine Protein - Negative Bedside Urine Urobilinogen - Negative Bedside Urine Nitrite - Negative Bedside Urine Leukocytes - Negative Esterase Imaging Data Rib x-ray: Radiologist's impression: ROCEDURE: XR RIBS LT MIN 3V W CXR1V INDICATIONS: pain fall 2 days ago TECHNIQUE: 2 views of the left ribs were acquired, along with a single view chest. COMPARISON: None. FINDINGS: Surgical changes and devices: Left chest wall cardiac device leads are seen in the region of right atrium and right ventricle. Left breast implant is seen. Bones and chest wall: No fractures or dislocations. No suspicious bony lesions. Overlying soft tissues appear unremarkable. Lungs and pleura: No pleural effusions or pneumothorax. Lungs appear clear. The no focal infiltrate. Linear scarring/atelectasis in left midlung field is seen Mediastinum: Mediastinal contours appear normal. Heart size is enlarged. IMPRESSION: No definite displaced left rib fracture is seen. Linear scarring/atelectasis in left mid to lower lung field. No focal infiltrate, pleural effusion or pneumothorax. Dictated by: Wayne Powell M.D. on 06/25/2018 at 11:26 Approved by: Wayne Powell M.D. on 06/25/2018 at 11:30 ECG Data Interpretation: EKG 1. Sinus rhythm rate 78 artifact noted in V5 however she does have significant T-wave inversions in V6 which are worse than prior. EKG 2. Paced rhythm rate 70 similar to previous EKG MDM Narrative Medical decision making narrative: Patient's pain started after a fall is worth with movement reproducible with palpation better after Toradol. At this time th is is likely musculoskeletal pain. She initially was thought to have some EKG changes but there was significant artifact, now she is back to her paced rhythm. I think what was seen on the 1st EKG is underlying rhythm. He has a negative troponin her symptoms are consistent with musculoskeletal pain. She is on Coumadin, for that reason I do not recommend NSAIDs, recommended trying lidocaine patches, and a muscle relaxer. Both and patient agree they understand when to return to the ED and follow up with her PCP. Discharge Plan Departure Patient Disposition: Home Clinical Impression: Acute costochondritis Discharge Date/Time: 06/25/18 13:48 Interventions: ED Discharge Assessment Last Done: 06/25/18 13:48 Instructions: Costochondritis Activity Restrictions/Additional Instructions: *You have been diagnosed with acute costochondritis *What to do: your symptoms are consistent with of rib sprain and strain. *Continue to take medications as directed--> [facility] Lidocaine patch apply to affected area for 12 hr only and then removed. Cyclobenzaprine every 8 hr only if needed for muscle spasm A Tylenol 650 mg every 4-6 hours if needed for pain *Follow up with your primary care provider in 2-3 days *Return to ER if you should have increasing pain, increasing shortness of breath work and x-ray do not show any sign of fracture. or any new, worsening or concerning symptoms Prescriptions: New lidocaine 5 % adhesive patch,medicated 1 patch TOP DAILY PRN (Reason: pain (scale score 4-6)) Qty: 30 RF: 0 cyclobenzaprine 5 mg tablet 5 mg PO TID PRN (Reason: muscle spasm) Qty: 14 RF: 0 No Action potassium chloride [Klor-Con] 20 MEQ packet 20 meq PO TIDCC Qty: 0 RF: 0 furosemide 20 MG tablet 60 mg PO QAM Qty: 270 RF: 11 prednisone 10 MG tablet 50 mg PO QAM Qty: 0 RF: 0 [CELCEPT] Qty: 0 RF: 0 levothyroxine [Synthroid] 125 mcg tablet 125 mcg PO QDAY Qty: 90 RF: 3 lovastatin 20 mg tablet 20 mg PO HS Qty: 90 RF: 3 magnesium oxide 400 mg (241.3 mg magnesium) tablet 400 mg PO BID Qty: 60 RF: 3 warfarin [Coumadin] 3 mg tablet 3 mg PO QDAY Qty: 90 RF: 0 gabapentin [Neurontin] 300 mg capsule 1 - 2 tab PO TIDP PRNQty: 120 RF: 3 omeprazole 40 mg capsule,delayed release(DR/EC) 40 mg PO BID Qty: 60 RF: 3 cyclobenzaprine 10 mg tablet 10 mg PO TID PRN (Reason: muscle spasm) Qty: 10 RF: 0 oxybutynin chloride 5 mg tablet 5 mg PO ONCE RF: 0 metoprolol succinate 100 mg tablet extended release 24 hr 100 mg PO BID RF: 0 sotalol 80 mg tablet 80 mg PO Q12H RF: 0 fluticasone propion-salmeterol [Advair HFA] 115-21 mcg/actuation HFA aerosol inhaler 2 puff INHALATION BID RF: 0 lidocaine 4 % adhesive patch,medicated 1 patch TOP Q12H PRN (Reason: pain) Qty: 30 RF: 2 Referrals: Sky Hurst MD [Primary Care Provider] -
[2018-06-25 13:29] LABS: INR 1.4 (0.9-1.3); Prothrombin Time 15.8 SECONDS (10.1-12.7)
[2018-06-25 13:37] VITALS: BP 155/93; PULSE 73; RESP 19; O2SAT 98
== END 2018-06-25 13:48 | disposition home or self-care (01) ==
PROVIDERS: Emergency Provider Emergency Medicine; Family Provider Internal Medicine Rheumatology; PCP Internal Medicine
DX: M94.0 Chondrocostal junction syndrome [Tietze] (principal)
CPT/HCPCS: 36591; 71101; 80053; 81003; 82550; 82553; 83690; 84484; 85025; 85610; 93005; 96372; 99283; 99285; J1885

== ENCOUNTER → 2018-07-16 14:01 | Outpatient (CLI) | payer MEDICARE, OTHER, SELFPAY ==
[2017-12-24 14:02] VITALS: BMI 26.4
[2018-07-16 14:51] LABS: INR 2.4 (0.9-1.3); Prothrombin Time 27.8 SECONDS (10.1-12.7)
== END ==
PROVIDERS: Family Provider Internal Medicine Rheumatology; PCP Internal Medicine; Visit Provider Internal Medicine
DX: I48.91 Unspecified atrial fibrillation (principal); Z79.01 Long term (current) use of anticoagulants
CPT/HCPCS: 36415; 85610

== ENCOUNTER → 2018-10-20 10:54 | Outpatient (CLI) | payer MEDICARE, OTHER, SELFPAY ==
[2017-12-24 14:02] VITALS: BMI 26.4
--- NOTE | 2018-10-20 | DI.RAD.S_ITS ---
PROCEDURE: XR HAND RT 2V INDICATIONS: RA STUDY TECHNIQUE: 2 views of the hand(s) acquired. COMPARISON: None. FINDINGS: Bones: No fractures or dislocations. There is minimal distal interphalangeal degenerative osteoarthritis as indicated by joint space narrowing, and at the base of the first and second metacarpal bones moderate degenerative osteoarthritis can be seen but no erosive arthritis is suspected. Carpal bones are normally aligned. No suspicious bony lesions. Soft tissues: No suspicious soft tissue calcifications. IMPRESSION: Mild to moderate degenerative osteoarthritis, without evidence of erosive arthritis superimposed. Dictated by: Chris Cross M.D. on 10/20/2018 at 11:49 Approved by: Chris Cross M.D. on 10/20/2018 at 11:50
--- NOTE | 2018-10-20 | DI.RAD.S_ITS ---
PROCEDURE: XR HAND LT 2V INDICATIONS: RA of multiple sites TECHNIQUE: 3 views of the hand(s) acquired. COMPARISON: None. FINDINGS: Bones: No fractures or dislocations. Carpal bones are abnormally aligned with narrowing of the inner carpal articulations as indicated by generalized osteoarthritic change, and associated subluxation of the base of the first metacarpal is moderate against the distal trapezium. Note is made of a bone island at the middle third of the scaphoid bone, measuring approximately 4 mm in diameter. No erosive arthritis is seen. Moderate interphalan shield degenerative osteoarthritic joint space narrowing is present from digits 2 through 5.. No suspicious bony lesions. Soft tissues: No suspicious soft tissue calcifications. IMPRESSION: Moderately severe osteoarthritis overall, best seen at the base of the first metacarpal, where subluxation is associated laterally. No erosive arthritis is found. Dictated by: Chris Cross M.D. on 10/20/2018 at 11:50 Approved by: Chris Cross M.D. on 10/20/2018 at 11:52
== END ==
PROVIDERS: Family Provider Internal Medicine Rheumatology; PCP Internal Medicine; Visit Provider Internal Medicine Rheumatology
DX: M05.79 Rheumatoid arthritis with rheumatoid factor of multiple sites without organ or systems involvement (principal); M19.041 Primary osteoarthritis, right hand; M19.042 Primary osteoarthritis, left hand
CPT/HCPCS: 73120

== ENCOUNTER → 2018-12-04 11:56 | Outpatient (CLI) | payer MEDICARE, OTHER, SELFPAY ==
[2017-12-24 14:02] VITALS: BMI 26.4
[2018-12-04 13:11] LABS: Add Manual Diff / Slide Review NO; Basophils Absolute Auto 100 /uL (0-100); Basophils Percent Auto 1.2 % (0-2); Eosinophils Absolute Auto 100 /uL (0-450); Hematocrit 42.1 % (36-46); Lymphocytes Absolute Auto 300 /uL (1100-4500); Lymphocytes Percent Auto 4.9 % (25-40); Mean Corpuscular HGB Conc 33.2 % (30-36); Mean Corpuscular Hemoglobin 31.8 PG (26-34); Mean Corpuscular Volume 95.8 fL (80-100); Monocytes Absolute Auto 400 /uL (0-900); Monocytes Percent Auto 6.6 % (3-14); Neutrophils Absolute Auto 4700 /uL (1500-7000); Neutrophils Percent Auto 86.3 % (50-75); Platelet Count 173 X10^3/uL (150-400); White Blood Cell Count 5.5 X10^3/uL (4.5-11.0)
[2018-12-04 13:30] LABS: B Type Natriuretic Peptide 915 (<100)
[2018-12-04 13:43] LABS: BUN Creatinine Ratio 28.8 (6-22); Blood Urea Nitrogen 23 mg/dL (7-17); Calcium 9.6 mg/dL (8.4-10.2); Carbon Dioxide 34 mmol/L (22-32); Chloride 96 mmol/L (98-107); Estimated Glomerular Filt Rate > 60.0 mL/min (>60); Glucose 98 mg/dL (80-110); HEMOLYSIS < 15 (0-50); Magnesium 1.8 mg/dL (1.6-2.3); Potassium 4.5 mmol/L (3.4-5.1); Sodium 141 mmol/L (137-145)
== END ==
PROVIDERS: PCP Internal Medicine; Visit Provider Internal Medicine
DX: I27.20 Pulmonary hypertension, unspecified (principal); I42.9 Cardiomyopathy, unspecified; J44.9 Chronic obstructive pulmonary disease, unspecified; Z79.01 Long term (current) use of anticoagulants
CPT/HCPCS: 36415; 80048; 83735; 83880; 85025

== ENCOUNTER → 2019-09-18 09:16 | Outpatient (CLI) | payer MEDICARE, OTHER, SELFPAY ==
[2019-07-29 12:29] VITALS: BMI 26.4
[2019-09-18 10:55] LABS: BUN Creatinine Ratio 22.5 (6-22); Blood Urea Nitrogen 20 mg/dL (7-17); Calcium 9.8 mg/dL (8.4-10.2); Carbon Dioxide 34 mmol/L (22-32); Chloride 94 mmol/L (98-107); Estimated Glomerular Filt Rate > 60.0 mL/min (>60); Glucose 82 mg/dL (80-110); HEMOLYSIS < 15 (0-50); Potassium 4.4 mmol/L (3.4-5.1); Sodium 136 mmol/L (137-145)
== END ==
PROVIDERS: PCP Internal Medicine; Referring Provider Internal Medicine; Visit Provider Internal Medicine
DX: I10 Essential (primary) hypertension (principal); I27.20 Pulmonary hypertension, unspecified; R60.9 Edema, unspecified
CPT/HCPCS: 36415; 80048; 83735

== ENCOUNTER → 2019-10-05 09:31 | Outpatient (CLI) | payer MEDICARE, OTHER, SELFPAY ==
[2019-07-29 12:29] VITALS: BMI 26.4
--- NOTE | 2019-10-05 09:40 | DI.ECHO.S_ITS ---
Echocardiogram Report + + :Name: RON KENNEDY Study Date: 10/05/2019 Height: 60 in : :[facility] Weight: 150 lb : : Gender: Female BSA: 1.7 m2 : :: 1950 Age: 69 yrs BP: 152/88 mmHg: :Reason For Study: ATRIAL FLUTTER : :Ordering Physician: PEGGY HEMPHILL : :Justin Bustos Performed By: Melba Manjarrez : :Referring: PEGGY HEMPHILL : + + Interpretation Summary The left ventricle is normal in size and wall thickness. Left ventricular ejection fraction is estimated to be 45 +/- 5%. Compared to the prior exam, the left ventricular function is reduced. The right ventricle is normal size. Right ventricular systolic function is moderately reduced. Right ventricular systolic function has decreased since previous exam. There is a pacemaker lead in the right ventricle. There is mild to moderate mitral regurgitation. Compared to the prior echo study, there has been no change in the severity of mitral regurgitation There is moderate to severe tricuspid regurgitation. Hepatic vein flow reversal noted. Compared to the prior echo exam, there has been an increase in TR severity. The right ventricular systolic pressure is estimated to be at least 79 mmHg based on an estimated right atrial pressure of 15 mm Hg. There is severe pulmonary hypertension. Compared to the prior echo exam, there has been an increase in the severity of pulmonary hypertension. The ascending aorta is mildly enlarged. . Procedure: A two-dimensional transthoracic echocardiogram with color flow and Doppler was performed. The study quality was technically adequate. Comparison is made with the echocardiogram of 10/07/2017. The patient has a paced rhythm. The heart rate ranged between 75 bpm during the study. Left Ventricle: The left ventricle is normal in size and wall thickness. There is no thrombus. A false chord is noted (normal variant). Left ventricular ejection fraction is estimated to be 45 +/- 5%. Compared to the prior exam, the left ventricular function is reduced. The interventricular septum is flattened, consistent with a right ventricular pressure/volume condition. There is mild global hypokinesis of the left ventricle. Diastolic function could not be accurately assessed due to paced rhythm. Right Ventricle: There is a pacemaker lead in the right ventricle. The right ventricle is normal size. Right ventricular systolic function is moderately reduced. Right ventricular systolic function has decreased since previous exam. Atria: Both atria are severely dilated. Both atria have remained unchanged in size since the prior echo exam. There is a catheter/pacemaker lead seen in the right atrium. There is no Doppler evidence for an interatrial shunt. Mitral Valve: There is a flat closure plane of the the mitral valve leaflets. There is mild mitral annular calcification. The mitral valve chordae are thickened and/or calcified. There is mild to moderate mitral regurgitation. Compared to the prior echo study, there has been no change in the severity of mitral regurgitation. Aortic Valve: The aortic valve is mildly calcified. The aortic valve is not well visualized. There is no aortic valve stenosis. There is mild aortic regurgitation. Tricuspid Valve: The tricuspid valve leaflets are thin and pliable. There is moderate to severe tricuspid regurgitation. Hepatic vein flow reversal noted. The right ventricular systolic pressure is estimated to be at least 79 mmHg based on an estimated right atrial pressure of 15 mm Hg. There is severe pulmonary hypertension. Compared to the prior echo exam, there has been an increase in TR severity. Compared to the prior echo exam, there has been an increase in the severity of pulmonary hypertension. Pulmonic Valve: The pulmonic valve is not well seen, but is grossly normal. There is mild pulmonic regurgitation. Great Vessels: The aortic root is normal size. The ascending aorta is mildly enlarged. There has been no significant change since the previous study. The IVC is dilated (diameter is greater than 2.1 cm) and it collapses less than 50% with a sniff. This suggests a high right atrial pressure of 15 mm Hg. Pericardium/ Pleura There is no pericardial effusion. There is no pleural effusion. MMode/2D Measurements & Calculations LVIDd: 4.7 cm LVOT diam: 1.9 cm LVIDs: 4.1 cm Ao root diam: 2.4 cm FS: 14.3 % asc Aorta Diam: 3.7 cm EPSS: 0.99 cm IVSd: 0.93 cm LVPWd: 0.96 cm LV prajapati. diameter/BSA (cm/m^2): 2.9 LV sys. diameter/BSA (cm/m^2): 2.5 LA A2 area: 28.8 cm2 RA long axis: 6.8 cm LA A4 area: 33.9 cm2 RA area: 32.4 cm2 LA length (vol): 6.8 cm RA vol: 130.9 ml LA vol: 122.0 ml RA : 79.2 ml/m2 LA vol index: 73.8 ml/m2 IVC diam: 2.4 cm RVD1 (basal): 3.8 cm TAPSE: 1.3 cm Doppler Measurements & Calculations Ao V2 max: 98.8 cm/sec LVOT Max Jamil: 50.9 cm/sec Ao V2 mean: 62.1 cm/sec LV V1 max P.0 mmHg Ao max P.9 mmHg LV V1 VTI: 9.6 cm Ao mean P.8 mmHg CHING(I,D): 1.6 cm2 Ao V2 VTI: 16.4 cm CHING(V,D): 1.4 cm2 sev ratio: 0.59 CHING indexed to BSA (cm^2/m^2): 0.97 MV E max jamil: 89.4 cm/sec TR max jamil: 399.8 cm/sec Med Peak E' Jamil: 5.8 cm/sec TR max P.9 mmHg E/E' med: 15.4 PA V2 max: 53.6 cm/sec Lat Peak E' Jamil: 4.4 cm/sec PA V2 mean: 37.0 cm/sec E/E' lat: 20.3 PA mean P.63 mmHg E/e' average: 17.8 MV dec time: 0.18 sec SV(LVOT): 26.3 ml Reading Physician:03:43 PM
== END ==
PROVIDERS: PCP Internal Medicine; Referring Provider Internal Medicine Cardiovascular Disease; Visit Provider Physician Assistant
DX: I08.3 Combined rheumatic disorders of mitral, aortic and tricuspid valves (principal); I48.4 Atypical atrial flutter; I27.20 Pulmonary hypertension, unspecified; I77.89 Other specified disorders of arteries and arterioles; Z95.0 Presence of cardiac pacemaker
CPT/HCPCS: 93306

== ENCOUNTER → 2019-10-05 10:48 | Outpatient (CLI) | payer MEDICARE, OTHER, SELFPAY ==
[2019-07-29 12:29] VITALS: BMI 26.4
[2019-10-05 11:18] LABS: RBC Urine None Seen (0-5/HPF)
[2019-10-05 12:28] LABS: Add Manual Diff / Slide Review NO; Basophils Absolute Auto 100 /uL (0-100); Basophils Percent Auto 1.1 % (0-2); Eosinophils Absolute Auto 100 /uL (0-450); Eosinophils Percent Auto 1.4 % (2-4); Hematocrit 36.4 % (36-46); Hemoglobin 12.1 g/dL (12.0-16.0); Lymphocytes Absolute Auto 400 /uL (1100-4500); Lymphocytes Percent Auto 9.1 % (25-40); Mean Corpuscular HGB Conc 33.1 % (30-36); Mean Corpuscular Hemoglobin 32.7 PG (26-34); Mean Corpuscular Volume 98.8 fL (80-100); Monocytes Absolute Auto 500 /uL (0-900); Neutrophils Absolute Auto 3700 /uL (1500-7000); Neutrophils Percent Auto 78.4 % (50-75); Platelet Count 165 X10^3/uL (150-400); Red Blood Cell Count 3.69 X10^6/uL (4.0-5.2); White Blood Cell Count 4.7 X10^3/uL (4.5-11.0)
[2019-10-05 12:45] LABS: Appearance Urine UA CLEAR; Bilirubin Urine UA NEGATIVE (NEGATIVE); Color Urine UA YELLOW; Glucose Urine UA NEGATIVE (Negative); Ketones Urine UA NEGATIVE (NEGATIVE); Leukocyte Esterase Urine UA NEGATIVE (NEGATIVE); Nitrite Urine UA NEGATIVE (Negative); Occult Blood Urine UA NEGATIVE (Negative); Protein Urine UA 1+ (Negative); Specific Gravity Urine UA 1.025 (1.000-1.035); Urobilinogen Urine UA 0.2 E.U./dL (0.2)
[2019-10-05 12:59] LABS: Alanine Aminotransferase 14 IU/L (<35); Albumin 4.4 g/dL (3.5-5.0); Albumin Globulin Ratio 1.2 (1.0-2.8); Alkaline Phosphatase 79 U/L (38-126); Aspartate Aminotransferase 33 IU/L (14-36); BUN Creatinine Ratio 21.5 (6-22); Bilirubin Total 0.6 mg/dL (0.2-1.3); Blood Urea Nitrogen 17 mg/dL (7-17); Calcium 9.7 mg/dL (8.4-10.2); Carbon Dioxide 35 mmol/L (22-32); Chloride 95 mmol/L (98-107); Estimated Glomerular Filt Rate > 60.0 mL/min (>60); Globulin 3.7 g/dL (1.7-4.1); Glucose 80 mg/dL (80-110); HEMOLYSIS < 15 (0-50); Potassium 3.9 mmol/L (3.4-5.1); Sodium 137 mmol/L (137-145); Total Protein 8.1 g/dL (6.3-8.2)
[2019-10-05 13:06] LABS: Squamous Epithelial Cell Urine 5-10 /HPF (0-5/HPF); WBC Urine 5-10/HPF (0-5/HPF)
[2019-10-05 13:07] LABS: Amorphous Sediment Urine 1+; Bacteria Urine Moderate (10-30); Culture Indicated Urine Specimen Cultured; Mucus Urine 1+ (Negative)
[2019-10-05 13:09] LABS: Erythrocyte Sedimentation Rate 31 MM/HR (0-20)
[2019-10-05 13:15] LABS: C-Reactive Protein Quant < 0.5 mg/dL (<1.0)
[2019-10-06 03:36] LABS: Complement C3 110 mg/dL (82-167)
[2019-10-06 18:10] LABS: DNA (DS) Antibody 1 IU/mL (0-9)
== END ==
PROVIDERS: PCP Internal Medicine; Referring Provider Internal Medicine; Visit Provider Internal Medicine Rheumatology
DX: M32.9 Systemic lupus erythematosus, unspecified (principal)
CPT/HCPCS: 36415; 80053; 81001; 85025; 85651; 86140; 86160; 86225; 87086

== ENCOUNTER 2019-10-31 18:28 | Emergency (ER) | payer MEDICARE, OTHER, SELFPAY ==
[2019-07-29 12:29] VITALS: BMI 26.4
[2019-10-31 18:45] VITALS: BP 148/78; PULSE 70; RESP 14; TEMP 36.8; O2SAT 98
--- NOTE | 2019-10-31 18:54 | DI.RAD.S_ITS ---
PROCEDURE: XR ELBOW RT MIN 3V INDICATIONS: fall w/ hematoma just south of elbow. TECHNIQUE: 3 views of the elbow were acquired. COMPARISON: None. FINDINGS: Bones: No fractures or dislocations. No suspicious bony lesions. Large soft tissue swelling at the proximal forearm. IMPRESSION: Large proximal forearm hematoma. No fracture. If the patient's symptoms do not improve recommend followup radiographs in 10 days to assess for healing sclerosis/occult injury. Dictated by: Bradley Cuellar M.D. on 10/31/2019 at 19:26 Approved by: Bradley Cuellar M.D. on 10/31/2019 at 19:27
[2019-10-31 19:15] LABS: Add Manual Diff / Slide Review NO; Basophils Absolute Auto 100 /uL (0-100); Basophils Percent Auto 1.3 % (0-2); Eosinophils Absolute Auto 0 /uL (0-450); Eosinophils Percent Auto 0.9 % (2-4); Hematocrit 38.9 % (36-46); Hemoglobin 12.8 g/dL (12.0-16.0); Lymphocytes Absolute Auto 300 /uL (1100-4500); Lymphocytes Percent Auto 8.3 % (25-40); Mean Corpuscular Hemoglobin 32.5 PG (26-34); Mean Corpuscular Volume 98.3 fL (80-100); Monocytes Absolute Auto 500 /uL (0-900); Monocytes Percent Auto 11.4 % (3-14); Neutrophils Absolute Auto 3200 /uL (1500-7000); Neutrophils Percent Auto 78.1 % (50-75); Platelet Count 173 X10^3/uL (150-400); Red Blood Cell Count 3.95 X10^6/uL (4.0-5.2); Red Cell Distribution Width 13.4 % (11.6-14.8); White Blood Cell Count 4.1 X10^3/uL (4.5-11.0)
[2019-10-31 19:17] LABS: INR 2.4 (0.9-1.3); Prothrombin Time 28.1 SECONDS (10.1-12.7)
--- NOTE | 2019-10-31 19:26 | ED_ITS ---
HPI - Fall General Chief Complaint: Fall Stated Complaint: Fall, Swollen/Laceration to Right Arm/Blood Thinne Time Seen by Provider: 10/31/19 19:26 Source: patient and family Mode of arrival: Wheelchair Limitations: no limitations History of Present Illness HPI Narrative: 69F nonsmoker with COPD, and AFib on warfarin presents with her and the chief complaint of a fall with elbow pain. She was walking on a set of stairs and tripped, falling on her elbow. She has full recall and denies head injury, neck pain, or back pain. She denies LOC, N/V or other. She denies numbness, tingling, or weakness. She has a large hematoma on her R elbow and a small skin tear. She has no other complaints. She states the fall was purely a consequence of being clutzy and had no prodromal symptoms MD complaint: fall Onset (ago): minute(s) Fall from: standing Fall witnessed: no Place fall occurred: home Loss of consciousness: none Prolonged down time: no Symptoms prior to fall: none Context: tripped/slipped Location of injury - extremities: Right: elbow Severity: moderate Quality: aching Associated symptoms (after fall): denies Related Data Home Medications Medication Instructions Recorded Confirmed hydroxychloroquine 200 mg tablet PO BID #180 tab 06/26/18 04/20/19 metoprolol succinate 100 mg 50 mg PO BID tab 06/26/18 04/20/19 tablet,extended release 24 hr prednisone 5 mg tablet 5 mg PO DAILY 01/19/19 04/20/19 [CELCEPT] #1 ea 04/20/19 Previous Rx's Medication Instructions Recorded warfarin 3 mg tablet See Rx Instructions .ROUTE 02/05/19 .COMPLEX #100 tab lovastatin 20 mg tablet See Rx Instructions .ROUTE 02/18/19 .COMPLEX #90 tablet gabapentin 300 mg capsule 600 mg PO BID PRN #360 cap 05/15/19 furosemide 20 mg tablet 40 mg PO QAM #180 tab 06/26/19 omeprazole 40 mg capsule,delayed 40 mg PO BID #60 cap 07/29/19 release levothyroxine 125 mcg tablet 125 mcg PO QDAY #90 tab 08/14/19 magnesium oxide 400 mg (241.3 mg See Rx Instructions .ROUTE 09/25/19 magnesium) tablet .COMPLEX #60 tablet hydrocodone-acetaminophen 1 tab PO Q4-6H PRN #10 tab 10/31/19 Allergies Allergy/AdvReac Type Severity Reaction Status Date / Time doxycycline [DOXYCYCLINE] Allergy Mild HIVES Verified 10/31/19 18:54 Sulfa (Sulfonamide Allergy Mild HIVES Verified 10/31/19 18:54 Antibiotics) [SULFA (SULFONAMIDE ANTIBIOTICS)] tetracycline [TETRACYCLINE] Allergy Mild HIVES Verified 10/31/19 18:54 sulfamethoxazole AdvReac Intermediate UPSET Verified 10/31/19 18:54 [From BACTRIM] STOMACH trimethoprim [From BACTRIM] AdvReac Intermediate UPSET Verified 10/31/19 18:54 STOMACH Review of Systems Constitutional Constitutional: Denies chills, Denies fatigue, Denies fever(s), Denies frequent falls, Denies lethargy and Denies weakness Eyes Eyes: Denies change in vision, Denies eye discharge, Denies irritation and Denies loss of vision ENT Ears, Nose, Mouth, and Throat: Denies change in voice, Denies dizziness, Denies neck pain, Denies sore throat and Denies throat swelling Cardiovascular Cardiovascular: Denies chest pain, Denies irregular heart rhythm, Denies lightheadedness, Denies palpitations, Denies dyspnea, Denies dyspnea on exertion and Denies orthopnea Respiratory Respiratory: Denies cough, Denies dyspnea, Denies dyspnea on exertion and Denies wheezing Gastrointestinal Gastrointestinal: Denies abdominal pain, Denies change in bowel habits, Denies diarrhea, Denies nausea and Denies vomiting Musculoskeletal Musculoskeletal: Reports arthralgias, Reports joint swelling, Denies neck pain and Denies numbness Integumentary/Breasts Skin/Breast: Denies pruritus, Denies erythema, Denies rash and Denies wounds Neurologic Neurologic: Denies behavioral changes, Denies confusion, Denies dizziness, Denies frequent falls, Denies loss of vision, Denies numbness and Denies weakness Psychiatric Psychiatric: Denies anxiety, Denies behavioral changes, Denies confusion, Denies depression, Denies homicidal ideation and Denies suicidal ideation Endocrine Endocrine: Denies fatigue, Denies flushing and Denies palpitations Hematologic/Lymphatic Hematologic/Lymphatic: Reports easy bruising Allergic/Immunologic Allergic/Immunologic: Denies urticaria, Denies throat swelling and Denies wheezing Patient History Medical History Acquired hypothyroidism (Chronic 09/14/16) Anemia, normocytic normochromic (Resolved 10/22/16) Atrial fibrillation (Chronic 08/19/12) Cardiomyopathy (Chronic 09/03/13) Cellulitis of right ankle (Resolved 2006) Cervical radiculopathy (Chronic) CHF (congestive heart failure) (Chronic) Chronic neutropenia (Chronic 06/18/17) Colon polyps (Resolved 2005) COPD (chronic obstructive pulmonary disease) (Chronic) Cubital tunnel syndrome on left (Chronic 2015) Diastolic dysfunction (Chronic 09/03/13) 0 (Resolved) Hyperlipidemia (Chronic 10/26/10) 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 (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 10/26/10) 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/12) Measles (Resolved) [place] (myocardial infarction) (Resolved 08/2011) Mumps (Resolved) Neck pain on left side (Chronic) Pancytopenia (Chronic 2013) Peripheral edema (Chronic) Plasma cell dyscrasia (Chronic) Pulmonary hypertension (Chronic) Shingles (Resolved 2006) SVT (supraventricular tachycardia) (Chronic) Systemic lupus erythematosus (SLE) in adult (Chronic) 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) Urinary frequency (Chronic) Surgical History History of appendectomy (Resolved ~1960) History of bone marrow biopsy (Resolved 01/22/17) History of breast augmentation (Resolved ~1979) History of cardiac catheterization (Resolved 08/2011) History of cardioversion (Resolved 08/2011) History of cardioversion (Resolved 09/2016) History of colonoscopy with polypectomy (Resolved 08/20/16) History of esophagogastroduodenoscopy (EGD) (Resolved 08/20/16) History of inguinal hernia repair (Resolved) History of permanent cardiac pacemaker placement (Resolved 2011) History of ventral hernia repair (Resolved) S/P cubital tunnel release (Resolved 2015) S/P total abdominal hysterectomy and bilateral salpingo-oophorectomy (Resolved 1984) Status post tonsillectomy and adenoidectomy (Resolved) Family History Father CAD (coronary artery disease) 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 Acute coronary syndrome Arteriosclerosis Atherosclerosis Brother Hearing deficit Brother Cancer Gout Mother No problems noted. Family/Other Cancer Social History Smoking Status: Never smoker Smoking Status: Never smoker alcohol intake frequency: 0-2 drinks per day Substance Use Type: does not use Exam Narrative Exam Narrative: GENERAL: [69] year old patient appears stated age. Well- nourished, well-developed patient, in mild distress. GCS 15 HEAD: Atraumatic. Normocephalic. EYES: Pupils equal round and reactive. Extraocular motions intact. No scleral icterus. No injection or drainage. ENT: Nose without bleeding, purulent drainage. Throat without erythema, tonsillar hypertrophy or exudate. Airway patent. NECK: Trachea midline. Non tender CARDIOVASCULAR: Regular rate and rhythm without murmurs, gallops, or rubs. RESPIRATORY: Clear to auscultation. Breath sounds equal bilaterally. No wheezes, rales, or rhonchi. GASTROINTESTINAL: Abdomen soft, non-tender, nondistended. EXTREMITIES: Full, but painful ROM of R elbow. No pain in shoulder or wrist. large tense hematoma with small skin tear on volar aspect of right proximal. Closed, isolated and NV intact. Compartments soft. Cap refill <2s BACK: Nontender without deformity or crepitance. No flank tenderness. NEURO: AOx3. SKIN: No rash or erythema of visible areas Initial Vital Signs Initial Vital Signs: Vital Signs Temperature 98.3 F 10/31/19 18:45 Pulse Rate 70 10/31/19 18:45 Respiratory Rate 14 10/31/19 18:45 Blood Pressure 148/78 H 10/31/19 18:45 Pulse Oximetry 98 10/31/19 18:45 Course Course Course Narrative: wound care including steri strips and bandage with overlying compressive dressing Orders Ordered: ED Orders 10/31/19 18:54 XR elbow RT min 3V Stat 10/31/19 19:03 Complete Blood Count AUTO DIFF Stat Prothrombin Time INR Stat Discontinued Medications Hydrocodone Bitart/Acetaminophen (Vicodin 5/325 Prepack) 1 bottle MISC SEEINSTR ONE Stop: 10/31/19 21:02 Last Admin: 10/31/19 21:29 Dose: 1 bottle Documented by: CHARLIE Diphtheria/Tetanus/Acell Pertussis (Adacel) 0.5 ml IM .ONCE ONE Stop: 10/31/19 20:32 Last Admin: 10/31/19 20:55 Dose: 0.5 ml Documented by: CHARLIE Vital Signs Vital signs: Vital Signs - 8 hr 10/31/19 18:45 10/31/19 21:11 10/31/19 21:12 Temperature 98.3 F Pulse Rate 70 75 Respiratory Rate 14 Blood Pressure 148/78 H 173/91 H Pulse Oximetry 98 91 97 10/31/19 21:30 Temperature Pulse Rate 75 Respiratory Rate 18 Blood Pressure Pulse Oximetry 98 MDM - Fall Lab Data Result diagrams: 10/31/19 19:03 Labs: Lab Results 10/31/19 10/31/19 Range/Units 19:03 19:03 WBC 4.1 L (4.5-11.0) X10^3/uL RBC 3.95 L (4.0-5.2) X10^6/uL Hgb 12.8 (12.0-16.0) g/dL Hct 38.9 (36-46) % MCV 98.3 (80-100) fL MCH 32.5 (26-34) PG MCHC 33.0 (30-36) % RDW 13.4 (11.6-14.8) % Plt Count 173 (150-400) X10^3/uL Neut % (Auto) 78.1 H (50-75) % Lymph % (Auto) 8.3 L (25-40) % [place] % (Auto) 11.4 (3-14) % Eos % (Auto) 0.9 L (2-4) % Baso % (Auto) 1.3 (0-2) % Neut # (Auto) 3200 (6340-3997) /uL Lymph # (Auto) 300 L (9859-0048) /uL [place] # (Auto) 500 (0-900) /uL Eos # (Auto) 0 (0-450) /uL Baso # (Auto) 100 (0-100) /uL PT 28.1 H (10.1-12.7) SECONDS INR 2.4 H (0.9-1.3) Discharge Plan Departure Patient Disposition: Home Clinical Impression: Hematoma, Anticoagulation adequate Discharge Date/Time: 10/31/19 21:38 Instructions: DI for Hematoma (Bruise) Activity Restrictions/Additional Instructions: *You have been diagnosed with [fall with hematoma, skin tear, tetanus update] *What to do: * continue to take medications as directed: Hydrocodone sent to [facility] *Follow up with your primary care provider in 2-3 days, call for an appointment. Let them know you were seen in the Emergency Department and that we ask that you be seen in follow up *Return to ER if you should have any new, worsening or concerning symptoms, such as [severe pain, numbness, tingling, pale fingers or other bothersome sy mptoms You have been prescribed narcotic medications. While on these medications you cannot drive or operate heavy machinery. Additionally you cannot sign legal documents or perform any duties such as this. 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 Please understand that we cannot provide further refills of narcotics or controlled substances through the ED and your pain management will need to be through your Primary Care Provider ] Prescriptions: New hydrocodone-acetaminophen 5-325 mg tablet 1 tab PO Q4-6H PRN (Reason: pain) Qty: 10 RF: 0 No Action warfarin 3 mg tablet See Rx Instructions .ROUTE .COMPLEX Qty: 100 RF: 6 lovastatin 20 mg tablet See Rx Instructions .ROUTE .COMPLEX Qty: 90 RF: 3 (DME) [CELCEPT] 0 .Route .MEDSUPPLY Qty: 1 RF: 0 gabapentin [Neurontin] 300 mg capsule 600 mg PO BID PRN (Reason: pain, mild) Qty: 360 RF: 3 furosemide 20 mg tablet 40 mg PO QAM Qty: 180 RF: 1 omeprazole 40 mg capsule,delayed release(DR/EC) 40 mg PO BID Qty: 60 RF: 3 levothyroxine [Synthroid] 125 mcg tablet 125 mcg PO QDAY Qty: 90 RF: 3 magnesium oxide 400 mg (241.3 mg magnesium) tablet See Rx Instructions .ROUTE .COMPLEX Qty: 60 RF: 3 hydroxychloroquine 200 mg tablet PO BID Qty: 180 RF: 0 prednisone 5 mg tablet 5 mg PO DAILY RF: 0 metoprolol succinate 100 mg tablet extended release 24 hr 50 mg PO BID RF: 0 Referrals: Sky Hurst MD [Primary Care Provider] -
[2019-10-31] MEDS: TET,DIPH,PERTUSS(ACELL),VAC/PF 0.5 ML SYRINGE IM (20:55)
[2019-10-31 21:11] VITALS: O2SAT 91
[2019-10-31 21:12] VITALS: BP 173/91; PULSE 75; O2SAT 97
[2019-10-31] MEDS: HYDROCODONE/ACET 5/325 PREPACK 1 BOTTLE MISC (21:29)
[2019-10-31 21:30] VITALS: PULSE 75; RESP 18; O2SAT 98
== END 2019-10-31 21:38 | disposition home or self-care (01) ==
PROVIDERS: Emergency Provider Emergency Medicine; PCP Internal Medicine
DX: S50.01XA Contusion of right elbow, initial encounter (principal); W10.9XXA Fall (on) (from) unspecified stairs and steps, initial encounter; Z23 Encounter for immunization
CPT/HCPCS: 36415; 73080; 85025; 85610; 90471; 99284; 90715

== ENCOUNTER 2019-11-04 20:16 | Emergency (ER) | payer MEDICARE, OTHER, SELFPAY ==
[2019-07-29 12:29] VITALS: BMI 26.4
[2019-11-04 20:27] VITALS: BP 164/88; PULSE 74; RESP 16; TEMP 36.6; O2SAT 99; BMI 27.3
--- NOTE | 2019-11-04 20:55 | ED_ITS ---
HPI - Fall General Chief Complaint: Fall Stated Complaint: fell on saturday, rt arm pain Time Seen by Provider: 11/04/19 20:55 Source: patient Mode of arrival: Ambulatory History of Present Illness HPI Narrative: 69-year-old woman anticoagulated with Coumadin for atrial fibrillation with COPD who had a fall on October 30 and was seen and evaluated in the emergency department than. There was a large hematoma and a skin tear involving the right elbow. She was instructed to return if it was hurting more or she had any concerns. Over the last 24 hours she notes that it has been hurting quite a bit more despite having hydrocodone to use at home. She was also slightly concern with some drainage from the wound as well as the bruising that is spreading. Related Data Home Medications Medication Instructions Recorded Confirmed hydroxychloroquine 200 mg tablet PO BID #180 tab 06/26/18 11/03/19 metoprolol succinate 100 mg 50 mg PO BID tab 06/26/18 11/03/19 tablet,extended release 24 hr prednisone 5 mg tablet 5 mg PO DAILY 01/19/19 11/03/19 [CELCEPT] #1 ea 04/20/19 11/03/19 Previous Rx's Medication Instructions Recorded warfarin 3 mg tablet See Rx Instructions .ROUTE 02/05/19 .COMPLEX #100 tab lovastatin 20 mg tablet See Rx Instructions .ROUTE 02/18/19 .COMPLEX #90 tablet gabapentin 300 mg capsule 600 mg PO BID PRN #360 cap 05/15/19 furosemide 20 mg tablet 40 mg PO QAM #180 tab 06/26/19 omeprazole 40 mg capsule,delayed 40 mg PO BID #60 cap 07/29/19 release levothyroxine 125 mcg tablet 125 mcg PO QDAY #90 tab 08/14/19 magnesium oxide 400 mg (241.3 mg See Rx Instructions .ROUTE 09/25/19 magnesium) tablet .COMPLEX #60 tablet hydrocodone-acetaminophen 1 tab PO Q4-6H PRN #10 tab 10/31/19 Allergies Allergy/AdvReac Type Severity Reaction Status Date / Time doxycycline [DOXYCYCLINE] Allergy Mild HIVES Verified 11/03/19 16:19 Sulfa (Sulfonamide Allergy Mild HIVES Verified 11/03/19 16:19 Antibiotics) [SULFA (SULFONAMIDE ANTIBIOTICS)] tetracycline [TETRACYCLINE] Allergy Mild HIVES Verified 11/03/19 16:19 sulfamethoxazole AdvReac Intermediate UPSET Verified 11/03/19 16:19 [From BACTRIM] STOMACH trimethoprim [From BACTRIM] AdvReac Intermediate UPSET Verified 11/03/19 16:19 STOMACH Review of Systems Review of Systems Narrative: Pertinent positive and negative findings as per HPI Remainder of review of systems is otherwise unremarkable for Constitutional: Fevers, chills, weakness ENT: No sore throat, neck pain, ear pain CV: Chest pain, palpitations, dyspnea on exertion Respiratory: Cough, dyspnea GI: Nausea, vomiting, diarrhea, change in bowel habits, black or bloody stools : Dysuria, hematuria, flank pain MS: Muscle weakness, numbness, joint swelling or warmth Skin: Rashes, nonhealing lesions Neuro: Syncope, dizziness, tingling Patient History Medical History Acquired hypothyroidism (Chronic 09/14/16) Anemia, normocytic normochromic (Resolved 10/22/16) Atrial fibrillation (Chronic 08/19/12) Cardiomyopathy (Chronic 09/03/13) Cellulitis of right ankle (Resolved 2006) Cervical radiculopathy (Chronic) CHF (congestive heart failure) (Chronic) Chronic neutropenia (Chronic 06/18/17) Colon polyps (Resolved 2005) COPD (chronic obstructive pulmonary disease) (Chronic) Cubital tunnel syndrome on left (Chronic 2015) Diastolic dysfunction (Chronic 09/03/13) 0 (Resolved) Hyperlipidemia (Chronic 10/26/10) 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 (Chronic 10/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/12) Measles (Resolved) [place] (myocardial infarction) (Resolved 08/2011) Mumps (Resolved) Neck pain on left side (Chronic) Pancytopenia (Chronic 2013) Peripheral edema (Chronic) Plasma cell dyscrasia (Chronic) Pulmonary hypertension (Chronic) Shingles (Resolved 2006) SVT (supraventricular tachycardia) (Chronic) Systemic lupus erythematosus (SLE) in adult (Chronic) 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) Urinary frequency (Chronic) Surgical History History of appendectomy (Resolved ~196) History of bone marrow biopsy (Resolved 01/22/17) History of breast augmentation (Resolved ~1979) History of cardiac catheterization (Resolved 08/2011) History of cardioversion (Resolved 08/2011) History of cardioversion (Resolved 09/2016) History of colonoscopy with polypectomy (Resolved 08/20/16) History of esophagogastroduodenoscopy (EGD) (Resolved 08/20/16) History of inguinal hernia repair (Resolved) History of permanent cardiac pacemaker placement (Resolved 2011) History of ventral hernia repair (Resolved) S/P cubital tunnel release (Resolved 2015) S/P total abdominal hysterectomy and bilateral salpingo-oophorectomy (Resolved 1984) Status post tonsillectomy and adenoidectomy (Resolved) Family History Father CAD (coronary artery disease) 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 Acute coronary syndrome Arteriosclerosis Atherosclerosis Brother Hearing deficit Brother Cancer Gout Mother No problems noted. Family/Other Cancer Social History Smoking Status: Never smoker Smoking Status: Never smoker alcohol intake frequency: 0-2 drinks per day Substance Use Type: does not use Exam Narrative Exam Narrative: General: Alert appropriate in no acute distress Respiratory: Able to speak in full sentences, no obvious respiratory distress Cardiac: Irregular without murmurs Skin: Right arm with quite a bit of bruising from the fall 1 week ago that spreading as would be expected. There still appears to be a fairly large lacey deshawn just under the elbow. The skin laceration/tear over that area is pulling at the Steri-Strips and there is a minor amount of serosanguineous drainage from the area. There is slightly more erythema over that area however pictures from before suggest that the fullness is essentially unchanged and certainly not worse. Neurologic: Grossly intact no obvious asymmetries or abnormalities Psych, appropriate insight and affect, cooperative Initial Vital Signs Initial Vital Signs: Vital Signs Temperature 97.8 F 11/04/19 20:27 Pulse Rate 74 11/04/19 20:27 Respiratory Rate 16 11/04/19 20:27 Blood Pressure 164/88 H 11/04/19 20:27 Pulse Oximetry 99 11/04/19 20:27 Course Orders Ordered: ED Orders 11/04/19 21:30 Complete Blood Count AUTO DIFF Stat Comprehensive Metabolic Panel Stat 11/04/19 21:50 Prothrombin Time INR Stat Discontinued Medications Bacitracin (Bacitracin) 1 applic TOP NOW ONE Stop: 11/04/19 23:39 Cephalexin HCl (Keflex) 500 mg PO NOW ONE Stop: 11/04/19 23:39 Oxycodone/Acetaminophen (Percocet 5/325) 1 tab PO NOW ONE Stop: 11/04/19 21:15 Last Admin: 11/04/19 21:22 Dose: 1 tab Documented by: DAVID Vital Signs Vital signs: Vital Signs - 8 hr 11/04/19 20:27 Temperature 97.8 F Pulse Rate 74 Respiratory Rate 16 Blood Pressure 164/88 H Pulse Oximetry 99 MDM - Fall Medical Records Attestation: I reviewed the patient's medical records. Lab Data Attestation: I reviewed the patient's lab results. Result diagrams: 11/04/19 21:30 11/04/19 21:30 Labs: Lab Results 11/04/19 11/04/19 11/04/19 Range/Units 21:30 21:30 21:50 WBC 6.7 (4.5-11.0) X10^3/uL RBC 3.89 L (4.0-5.2) X10^6/uL Hgb 12.5 (12.0-16.0) g/dL Hct 38.3 (36-46) % MCV 98.4 (80-100) fL MCH 32.1 (26-34) PG MCHC 32.6 (30-36) % RDW 13.4 (11.6-14.8) % Plt Count 192 (150-400) X10^3/uL Neut % (Auto) 82.1 H (50-75) % Lymph % (Auto) 5.6 L (25-40) % [place] % (Auto) 11.1 (3-14) % Eos % (Auto) 0.5 L (2-4) % Baso % (Auto) 0.7 (0-2) % Neut # (Auto) 5500 (6276-9683) /uL Lymph # (Auto) 400 L (7629-3852) /uL [place] # (Auto) 700 (0-900) /uL Eos # (Auto) 0 (0-450) /uL Baso # (Auto) 0 (0-100) /uL PT 47.3 H D (10.1-12.7) SECONDS INR 4.2 H (0.9-1.3) Sodium 134 L (137-145) mmol/L Potassium 3.3 L (3.4-5.1) mmol/L Chloride 92 L (98-107) mmol/L Carbon Dioxide 36 H (22-32) mmol/L BUN 15 (7-17) mg/dL Creatinine 0.84 (0.52-1.04) mg/dL Estimated GFR > 60.0 (>60) mL/min BUN/Creatinine Ratio 17.9 (6-22) Glucose 121 H (80-110) mg/dL Calcium 8.8 (8.4-10.2) mg/dL Total Bilirubin 0.8 (0.2-1.3) mg/dL AST 34 (14-36) IU/L ALT 15 (<35) IU/L Alkaline Phosphatase 73 (38-126) U/L Total Protein 7.9 (6.3-8.2) g/dL Albumin 4.2 (3.5-5.0) g/dL Globulin 3.7 (1.7-4.1) g/dL Albumin/Globulin Ratio 1.1 (1.0-2.8) MDM Narrative Medical decision making narrative: 69-year-old woman with a fall with contusion hematoma and skin laceration approximately week ago. Increasing pain concerned that there may be some developing cellulitis. Lab work does not suggest overwhelming infection nor sepsis. She started on Keflex. INR is slightly elevated so will ask her to hold this until she is seen in follow-up (already scheduled for Saturday). She is safe for home discharge Discharge Plan Departure Patient Disposition: Home Clinical Impression: Visit for wound check Activity Restrictions/Additional Instructions: Thank you for following your discharge instructions and coming back in if you had any concerns. Your wound is slightly more red and I was a bit concerned that there was more infection. Fortunately, your lab work is reassuring. I am going to start you on Keflex 3 times a day for 7 days to make sure that this does not turn into an infection. You do have a large blood clot underneath your elbow and there is potential for that to become infected. Please keep some antibiotic ointment on the skin wound until it has healed completely. Your INR(Coumadin level) was elevated at 4.2 today. Antibiotics can sometimes interfere with Coumadin For your pain, you can use 1 Percocet every 6 hours as needed. Please make sure you are also using a stool softener. Please do not take your Coumadin on . Please keep your Saturday follow-up appointment and ask about and INR level and dosing recommendations at that appointment. I hope you feel better Prescriptions: No Action warfarin 3 mg tablet See Rx Instructions .ROUTE .COMPLEX Qty: 100 RF: 6 lovastatin 20 mg tablet See Rx Instructions .ROUTE .COMPLEX Qty: 90 RF: 3 (DME) [CELCEPT] 0 .Route .MEDSUPPLY Qty: 1 RF: 0 gabapentin [Neurontin] 300 mg capsule 600 mg PO BID PRN (Reason: pain, mild) Qty: 360 RF: 3 furosemide 20 mg tablet 40 mg PO QAM Qty: 180 RF: 1 omeprazole 40 mg capsule,delayed release(DR/EC) 40 mg PO BID Qty: 60 RF: 3 levothyroxine [Synthroid] 125 mcg tablet 125 mcg PO QDAY Qty: 90 RF: 3 magnesium oxide 400 mg (241.3 mg magnesium) tablet See Rx Instructions .ROUTE .COMPLEX Qty: 60 RF: 3 hydroxychloroquine 200 mg tablet PO BID Qty: 180 RF: 0 prednisone 5 mg tablet 5 mg PO DAILY RF: 0 hydrocodone-acetaminophen 5-325 mg tablet 1 tab PO Q4-6H PRN (Reason: pain) Qty: 10 RF: 0 metoprolol succinate 100 mg tablet extended release 24 hr 50 mg PO BID RF: 0 Referrals: Sky Hurst MD [Primary Care Provider] -
[2019-11-04] MEDS: OXYCODONE/ACETAMINOPHEN 5/325 TABLET 1 TAB PO (21:22)
[2019-11-04 21:47] LABS: Alanine Aminotransferase 15 IU/L (<35); Albumin 4.2 g/dL (3.5-5.0); Albumin Globulin Ratio 1.1 (1.0-2.8); Alkaline Phosphatase 73 U/L (38-126); Aspartate Aminotransferase 34 IU/L (14-36); BUN Creatinine Ratio 17.9 (6-22); Bilirubin Total 0.8 mg/dL (0.2-1.3); Blood Urea Nitrogen 15 mg/dL (7-17); Calcium 8.8 mg/dL (8.4-10.2); Carbon Dioxide 36 mmol/L (22-32); Chloride 92 mmol/L (98-107); Estimated Glomerular Filt Rate > 60.0 mL/min (>60); Globulin 3.7 g/dL (1.7-4.1); Glucose 121 mg/dL (80-110); HEMOLYSIS < 15 (0-50); Potassium 3.3 mmol/L (3.4-5.1); Sodium 134 mmol/L (137-145); Total Protein 7.9 g/dL (6.3-8.2)
[2019-11-04 21:51] LABS: Add Manual Diff / Slide Review NO; Basophils Absolute Auto 0 /uL (0-100); Basophils Percent Auto 0.7 % (0-2); Eosinophils Absolute Auto 0 /uL (0-450); Eosinophils Percent Auto 0.5 % (2-4); Hematocrit 38.3 % (36-46); Hemoglobin 12.5 g/dL (12.0-16.0); Lymphocytes Absolute Auto 400 /uL (1100-4500); Lymphocytes Percent Auto 5.6 % (25-40); Mean Corpuscular HGB Conc 32.6 % (30-36); Mean Corpuscular Hemoglobin 32.1 PG (26-34); Mean Corpuscular Volume 98.4 fL (80-100); Monocytes Absolute Auto 700 /uL (0-900); Monocytes Percent Auto 11.1 % (3-14); Neutrophils Absolute Auto 5500 /uL (1500-7000); Neutrophils Percent Auto 82.1 % (50-75); Platelet Count 192 X10^3/uL (150-400); Red Blood Cell Count 3.89 X10^6/uL (4.0-5.2); Red Cell Distribution Width 13.4 % (11.6-14.8); White Blood Cell Count 6.7 X10^3/uL (4.5-11.0)
[2019-11-04 22:01] LABS: INR 4.2 (0.9-1.3); Prothrombin Time 47.3 SECONDS (10.1-12.7)
[2019-11-04 22:20] VITALS: PULSE 75; O2SAT 96
[2019-11-04 22:30] VITALS: PULSE 75; O2SAT 98
[2019-11-04 23:00] VITALS: PULSE 75; O2SAT 96
[2019-11-04 23:30] VITALS: PULSE 75; O2SAT 98
[2019-11-04] MEDS: cephALEXin 250 MG CAPSULE 500 MG PO (23:55)
[2019-11-04] MEDS: BACITRACIN OINT 0.9 GM PCKT 1 APPLIC TOP (23:55)
[2019-11-04] MEDS: OXYCODONE/APAP 5/325 PREPACK 1 BOTTLE MISC (23:55)
== END 2019-11-05 00:18 | disposition home or self-care (01) ==
PROVIDERS: Emergency Provider Emergency Medicine; PCP Internal Medicine; Referring Provider Internal Medicine
DX: S50.01XD Contusion of right elbow, subsequent encounter (principal); S51.011D Laceration without foreign body of right elbow, subsequent encounter; I48.91 Unspecified atrial fibrillation; Z79.01 Long term (current) use of anticoagulants; J44.9 Chronic obstructive pulmonary disease, unspecified
CPT/HCPCS: 36415; 80053; 85025; 85610; 99283; 99284

== ENCOUNTER → 2019-11-06 12:27 | Outpatient (CLI) | payer MEDICARE, OTHER, SELFPAY ==
[2019-07-29 12:29] VITALS: BMI 26.4
--- NOTE | 2019-11-06 12:30 | DI.CT.S_ITS ---
PROCEDURE: CT HEAD/BRAIN WO CON INDICATIONS: Jaw swelling TECHNIQUE: Noncontrast 4.5 mm thick angled axial sections acquired from the foramen magnum to the vertex, with coronal and sagittal reformats. For radiation dose reduction, the following was used: automated exposure control, adjustment of mA and/or kV according to patient size. COMPARISON: [facility], CT, CT FACIAL BONES WO CON, 11/06/2019, 12:25. FINDINGS: Image quality: Excellent. CSF spaces: Basal cisterns are patent. No extra-axial fluid collections. The ventricles are symmetric in size and shape. 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 Old lacunar infarcts are noted in right basal ganglia. No intracranial bleeds or masses. There is cerebral volume loss for age, with resultant ventricular and sulcal prominence. There are periventricular and deep white matter chronic small vessel ischemic changes. There is intracranial internal carotid artery atherosclerosis. Skull and face: Calvarium and visualized facial bones appear intact, without suspicious lesions. Sinuses: Visualized sinuses and mastoids are clear. IMPRESSION: 1. No acute intracranial abnormalities. 2. A [id number] sized old right frontal temporal infarct and old lacunar infarcts in right basal ganglia. 3. Cerebral volume loss and chronic microvascular ischemic changes. Dictated by: Philip Bang M.D. on 11/06/2019 at 12:59 Approved by: Philip Bang M.D. on 11/06/2019 at 13:21
--- NOTE | 2019-11-06 12:34 | DI.CT.S_ITS ---
PROCEDURE: CT FACIAL BONES WO CON INDICATIONS: jaw swelling TECHNIQUE: Noncontrast 2.5 mm thick axial images acquired from the mandible through the frontal sinuses, with coronal and sagittal reformatting. For radiation dose reduction, the following was used: automated exposure control, adjustment of mA and/or kV according to patient size. COMPARISON: [facility], CT, C-SPINE WITHOUT CONTRAST, 10/04/2015, 8:20. [facility], CT, CT HEAD/BRAIN WO CON, 11/06/2019, 12:25. FINDINGS: Image quality: There are motion artifacts. Bones and teeth: Orbital werner are intact. Sinus werner show no fracture or deformity. Nasal bones and septum are intact. Visualized portions of the mandible demonstrate no fractures. There is anterior subluxation of the left mandibular condyle at the temporomandibular joint. Zygomatic arches are intact. Pterygoid plates are intact. Visualized portions of the skull base and auditory canals are intact. Sinuses: Paranasal sinuses are aerated, without fluid levels, mucosal thickening, or mucoceles. Mastoid air cells are aerated. Soft tissues: There is a 2.6 x 2.4 cm mass below the right mandibular angle. There is soft tissue edema over the right mandibular angle. No enlarged lymph nodes. No soft tissue lacerations or debris. Vascular: Visualized vascular structures appear normal in the absence of contrast. Bony vascular foramina and canals are intact. There are calcifications at the carotid bifurcations bilaterally. IMPRESSION: 1. Suboptimal examination due to motion artifacts. No facial bone fractures visualized. 2. Anterior subluxation of the left mandibular condyle at the temporomandibular joint. 3. A 2.6 x 2.4 cm mass below the right mandibular angle. Differential diagnoses include a hematoma, mass and enlarged lymph node. Recommend clinical correlation. A follow-up contrast enhanced CT is suggested if clinically indicated. 4. Soft tissue swelling over the right mandibular angle. Dictated by: Philip Bang M.D. on 11/06/2019 at 13:21 Approved by: Philip Bang M.D. on 11/06/2019 at 13:49
== END ==
PROVIDERS: PCP Internal Medicine; Referring Provider Student in an Organized Health Care Education/Training Program; Visit Provider Student in an Organized Health Care Education/Training Program
DX: R22.0 Localized swelling, mass and lump, head (principal); S03.02XA Dislocation of jaw, left side, initial encounter; I69.398 Other sequelae of cerebral infarction; G93.89 Other specified disorders of brain; I65.23 Occlusion and stenosis of bilateral carotid arteries; M79.89 Other specified soft tissue disorders
CPT/HCPCS: 70450; 70486

== ENCOUNTER → 2019-11-20 14:29 | Outpatient (CLI) | payer MEDICARE, OTHER, SELFPAY ==
[2019-11-20 10:05] VITALS: BMI 26.4
== END ==
PROVIDERS: PCP Internal Medicine; Visit Provider Family Medicine
DX: L02.91 Cutaneous abscess, unspecified (principal)
CPT/HCPCS: 87070; 87075; 87077; 87147; 87205

== ENCOUNTER → 2020-02-09 12:21 | Outpatient (CLI) | payer MEDICARE, OTHER, SELFPAY ==
[2019-11-20 10:05] VITALS: BMI 26.4
[2020-02-09 14:01] LABS: Add Manual Diff / Slide Review NO; Basophils Absolute Auto 0 /uL (0-100); Basophils Percent Auto 0.8 % (0-2); Eosinophils Absolute Auto 100 /uL (0-450); Eosinophils Percent Auto 1.5 % (2-4); Hemoglobin 12.5 g/dL (12.0-16.0); Lymphocytes Absolute Auto 400 /uL (1100-4500); Lymphocytes Percent Auto 11.1 % (25-40); Mean Corpuscular HGB Conc 32.1 % (30-36); Mean Corpuscular Hemoglobin 31.2 PG (26-34); Mean Corpuscular Volume 96.9 fL (80-100); Monocytes Absolute Auto 300 /uL (0-900); Monocytes Percent Auto 7.1 % (3-14); Neutrophils Absolute Auto 2900 /uL (1500-7000); Neutrophils Percent Auto 79.5 % (50-75); Platelet Count 182 X10^3/uL (150-400); Red Blood Cell Count 4.02 X10^6/uL (4.0-5.2); Red Cell Distribution Width 13.6 % (11.6-14.8); White Blood Cell Count 3.7 X10^3/uL (4.5-11.0)
[2020-02-09 14:11] LABS: Appearance Urine UA SL CLOUDY; Bilirubin Urine UA 1+ (NEGATIVE); Color Urine UA YELLOW; Glucose Urine UA NEGATIVE (Negative); Ketones Urine UA 1+ (NEGATIVE); Leukocyte Esterase Urine UA NEGATIVE (NEGATIVE); Nitrite Urine UA NEGATIVE (Negative); Occult Blood Urine UA NEGATIVE (Negative); Protein Urine UA TRACE (Negative); Specific Gravity Urine UA 1.025 (1.000-1.035); Urobilinogen Urine UA 0.2 E.U./dL (0.2)
[2020-02-09 14:20] LABS: Ictotest Urine Positive (Negative)
[2020-02-09 14:21] LABS: RBC Urine 1-5/HPF (0-5/HPF); Squamous Epithelial Cell Urine 10-30 /HPF (0-5/HPF); Transitional Epi Cells Urine 1-5/HPF (0-5/HPF); WBC Urine 1-5/HPF (0-5/HPF)
[2020-02-09 14:22] LABS: Bacteria Urine Many (>30); Culture Indicated Urine Cult Not Indicated; Mucus Urine 1+ (Negative)
[2020-02-09 14:23] LABS: Alanine Aminotransferase 17 IU/L (<35); Albumin 4.4 g/dL (3.5-5.0); Alkaline Phosphatase 96 U/L (38-126); Aspartate Aminotransferase 39 IU/L (14-36); BUN Creatinine Ratio 18.5 (6-22); Bilirubin Total 1.4 mg/dL (0.2-1.3); Blood Urea Nitrogen 10 mg/dL (7-17); C-Reactive Protein Quant 1.6 mg/dL (<1.0); Calcium 9.4 mg/dL (8.4-10.2); Carbon Dioxide 29 mmol/L (22-32); Chloride 100 mmol/L (98-107); Estimated Glomerular Filt Rate > 60.0 mL/min (>60); Globulin 4.4 g/dL (1.7-4.1); Glucose 76 mg/dL (80-110); HEMOLYSIS < 15 (0-50); Potassium 3.9 mmol/L (3.4-5.1); Sodium 137 mmol/L (137-145); Total Protein 8.8 g/dL (6.3-8.2)
[2020-02-09 14:28] LABS: Erythrocyte Sedimentation Rate 48 MM/HR (0-20)
[2020-02-09 14:49] LABS: Free T4, Direct Thyroxine 1.39 ng/dL (0.78-2.19)
[2020-02-09 15:03] LABS: Thyroid Stimulating Hormone 8.54 uIU/mL (0.47-4.68)
== END ==
PROVIDERS: PCP Internal Medicine; Referring Provider Internal Medicine; Visit Provider Internal Medicine
DX: E78.2 Mixed hyperlipidemia (principal); I10 Essential (primary) hypertension; I48.91 Unspecified atrial fibrillation; J44.9 Chronic obstructive pulmonary disease, unspecified; M32.9 Systemic lupus erythematosus, unspecified; Z79.01 Long term (current) use of anticoagulants; R41.82 Altered mental status, unspecified
CPT/HCPCS: 36415; 80053; 81001; 84439; 84443; 85025; 85651; 86140

== ENCOUNTER → 2020-04-11 12:49 | Outpatient (CLI) | payer MEDICARE, OTHER, SELFPAY ==
[2019-11-20 10:05] VITALS: BMI 26.4
[2020-04-11 15:14] LABS: Estimated Glomerular Filt Rate > 60.0 mL/min (>60)
[2020-04-11 15:49] LABS: TSH w/ Reflex to FT4 8.09 uIU/mL (0.47-4.68)
[2020-04-11 16:12] LABS: Free T4, Direct Thyroxine 1.96 ng/dL (0.78-2.19)
[2020-04-11 16:22] LABS: Folate 10.4 ng/mL (2.76-20.0); Vitamin B12 626 pg/mL (239-931)
== END ==
PROVIDERS: PCP Internal Medicine; Referring Provider Internal Medicine; Visit Provider Internal Medicine
DX: R41.3 Other amnesia (principal); R41.0 Disorientation, unspecified
CPT/HCPCS: 36415; 82565; 82607; 82746; 84439; 84443

== ENCOUNTER → 2020-04-15 15:24 | Outpatient (CLI) | payer MEDICARE, OTHER, SELFPAY ==
[2019-11-20 10:05] VITALS: BMI 26.4
[2020-04-15 16:49] LABS: Blood Urea Nitrogen 17 mg/dL (7-17); Calcium 9.1 mg/dL (8.4-10.2); Carbon Dioxide 32 mmol/L (22-32); Chloride 99 mmol/L (98-107); Estimated Glomerular Filt Rate > 60.0 mL/min (>60); Glucose 92 mg/dL (80-110); HEMOLYSIS < 15 (0-50); Potassium 3.7 mmol/L (3.4-5.1); Sodium 133 mmol/L (137-145)
== END ==
PROVIDERS: PCP Internal Medicine; Referring Provider Internal Medicine; Visit Provider Internal Medicine
DX: I10 Essential (primary) hypertension (principal); R60.9 Edema, unspecified
CPT/HCPCS: 36415; 80048

== ENCOUNTER → 2020-05-26 13:53 | Outpatient (CLI) | payer MEDICARE, OTHER, SELFPAY ==
[2019-11-20 10:05] VITALS: BMI 26.4
[2020-05-26 14:13] LABS: RBC Urine None Seen (0-5/HPF)
[2020-05-26 15:12] LABS: Appearance Urine UA CLEAR; Bilirubin Urine UA NEGATIVE (NEGATIVE); Color Urine UA YELLOW; Glucose Urine UA NEGATIVE (Negative); Ketones Urine UA NEGATIVE (NEGATIVE); Leukocyte Esterase Urine UA NEGATIVE (NEGATIVE); Nitrite Urine UA NEGATIVE (Negative); Occult Blood Urine UA NEGATIVE (Negative); Protein Urine UA NEGATIVE (Negative); Specific Gravity Urine UA 1.015 (1.000-1.035); Urobilinogen Urine UA 0.2 E.U./dL (0.2)
[2020-05-26 15:14] LABS: pH Urine UA 6.5 (4.5-8.0)
[2020-05-26 15:20] LABS: Bacteria Urine Few (2-10); Squamous Epithelial Cell Urine 1-5 /HPF (0-5/HPF); WBC Urine 0-1/HPF (0-5/HPF)
[2020-05-26 15:21] LABS: Culture Indicated Urine Cult Not Indicated
[2020-05-26 15:22] LABS: Add Manual Diff / Slide Review NO; Basophils Absolute Auto 0 /uL (0-100); Basophils Percent Auto 0.7 % (0-2); Eosinophils Absolute Auto 0 /uL (0-450); Eosinophils Percent Auto 0.1 % (2-4); Hematocrit 31.6 % (36-46); Hemoglobin 10.6 g/dL (12.0-16.0); Lymphocytes Absolute Auto 400 /uL (1100-4500); Lymphocytes Percent Auto 18.3 % (25-40); Mean Corpuscular HGB Conc 33.6 % (30-36); Mean Corpuscular Hemoglobin 31.7 PG (26-34); Mean Corpuscular Volume 94.5 fL (80-100); Monocytes Absolute Auto 100 /uL (0-900); Monocytes Percent Auto 2.7 % (3-14); Neutrophils Absolute Auto 1800 /uL (1500-7000); Neutrophils Percent Auto 78.2 % (50-75); Platelet Count 211 X10^3/uL (150-400); Red Blood Cell Count 3.35 X10^6/uL (4.0-5.2); Red Cell Distribution Width 14.4 % (11.6-14.8); White Blood Cell Count 2.3 X10^3/uL (4.5-11.0)
[2020-05-26 15:38] LABS: Alanine Aminotransferase 24 IU/L (<35); Albumin 4.1 g/dL (3.5-5.0); Albumin Globulin Ratio 0.7 (1.0-2.8); Alkaline Phosphatase 170 U/L (38-126); Aspartate Aminotransferase 52 IU/L (14-36); BUN Creatinine Ratio 22.3 (6-22); Bilirubin Total 0.8 mg/dL (0.2-1.3); Blood Urea Nitrogen 23 mg/dL (7-17); C-Reactive Protein Quant 1.4 mg/dL (<1.0); Carbon Dioxide 34 mmol/L (22-32); Chloride 95 mmol/L (98-107); Estimated Glomerular Filt Rate 52.8 mL/min (>60); Globulin 6.3 g/dL (1.7-4.1); Glucose 96 mg/dL (80-110); HEMOLYSIS < 15 (0-50); Potassium 3.7 mmol/L (3.4-5.1); Sodium 134 mmol/L (137-145)
[2020-05-26 16:14] LABS: Erythrocyte Sedimentation Rate 93 MM/HR (0-20); Total Protein 10.4 g/dL (6.3-8.2)
[2020-05-27 06:18] LABS: Complement C3 112 mg/dL (82-167)
[2020-05-27 14:24] LABS: DNA (DS) Antibody <1 IU/mL (0-9)
[2020-05-28 16:08] LABS: ANA Screen, IFA Negative (.)
== END ==
PROVIDERS: PCP Internal Medicine; Referring Provider Internal Medicine Rheumatology; Visit Provider Internal Medicine Rheumatology
DX: M32.9 Systemic lupus erythematosus, unspecified (principal)
CPT/HCPCS: 36415; 80053; 81001; 85025; 85651; 86038; 86140; 86160; 86225

== ENCOUNTER → 2020-06-17 10:16 | Outpatient (CLI) | payer MEDICARE, OTHER, SELFPAY ==
[2019-11-20 10:05] VITALS: BMI 26.4
[2020-06-17] MEDS: COVID-19 VACC #1, MRNA(MOD) 100 MCG/0.5 ML VIAL IM (10:25)
== END ==
PROVIDERS: PCP Internal Medicine; Visit Provider Internal Medicine
DX: Z23 Encounter for immunization (principal)
CPT/HCPCS: 0011A; 91301

== ENCOUNTER → 2020-07-15 10:03 | Outpatient (CLI) | payer MEDICARE, OTHER, SELFPAY ==
[2019-11-20 10:05] VITALS: BMI 26.4
[2020-07-15] MEDS: COVID-19 VACC #2, MRNA(MOD) 100 MCG/0.5 ML VIAL IM (10:12)
== END ==
PROVIDERS: PCP Internal Medicine; Visit Provider Internal Medicine
DX: Z23 Encounter for immunization (principal)
CPT/HCPCS: 0012A; 91301

== ENCOUNTER → 2020-08-10 11:08 | Outpatient (CLI) | payer MEDICARE, OTHER, SELFPAY ==
[2019-11-20 10:05] VITALS: BMI 26.4
[2020-08-10 11:59] LABS: Hematocrit 28.8 % (36-46); Hemoglobin 9.8 g/dL (12.0-16.0); Mean Corpuscular HGB Conc 34.1 % (30-36); Mean Corpuscular Hemoglobin 31.3 PG (26-34); Mean Corpuscular Volume 91.8 fL (80-100); Platelet Count 204 X10^3/uL (150-400); Red Blood Cell Count 3.14 X10^6/uL (4.0-5.2); Red Cell Distribution Width 14.3 % (11.6-14.8)
[2020-08-10 12:04] LABS: Add Manual Diff / Slide Review YES; White Blood Cell Count 1.5 X10^3/uL (4.5-11.0)
[2020-08-10 12:19] LABS: Neutrophils Absolute Manual 960 /uL (3000-5900); RBC Morphology Normal Morphology; Total Cells Counted 100
[2020-08-10 12:32] LABS: BUN Creatinine Ratio 20.6 (6-22); Blood Urea Nitrogen 22 mg/dL (7-17); Calcium 8.8 mg/dL (8.4-10.2); Carbon Dioxide 29 mmol/L (22-32); Chloride 95 mmol/L (98-107); Estimated Glomerular Filt Rate 50.6 mL/min (>60); Glucose 112 mg/dL (80-110); HEMOLYSIS < 15 (0-50); Potassium 4.2 mmol/L (3.4-5.1); Sodium 130 mmol/L (137-145)
== END ==
PROVIDERS: PCP Internal Medicine; Referring Provider Internal Medicine Cardiovascular Disease; Visit Provider Internal Medicine Cardiovascular Disease
DX: I50.20 Unspecified systolic (congestive) heart failure (principal); I50.812 Chronic right heart failure
CPT/HCPCS: 36415; 80048; 85007; 85025

== ENCOUNTER → 2020-08-12 15:05 | Outpatient (CLI) | payer MEDICARE, OTHER, SELFPAY ==
[2019-11-20 10:05] VITALS: BMI 26.4
[2020-08-12 16:55] LABS: Alanine Aminotransferase 15 IU/L (<35); Aspartate Aminotransferase 39 IU/L (14-36); C-Reactive Protein Quant 1.9 mg/dL (<1.0)
[2020-08-12 16:56] LABS: Erythrocyte Sedimentation Rate > 140 MM/HR (0-20)
[2020-08-13 03:36] LABS: Complement C3 108 mg/dL (82-167)
[2020-08-13 18:41] LABS: DNA (DS) Antibody <1 IU/mL (0-9)
[2020-08-15 14:28] LABS: Antimyeloperoxidase AB <9.0 U/mL (0.0-9.0); Antiproteinase 3 AB <3.5 U/mL (0.0-3.5); Atypical P-ANCA Titer <1:20 titer (Neg:<1:20); C-ANCA Titer <1:20 titer (Neg:<1:20); P-ANCA Titer <1:20 titer (Neg:<1:20)
== END ==
PROVIDERS: PCP Internal Medicine; Referring Provider Internal Medicine Rheumatology; Visit Provider Internal Medicine Rheumatology
DX: M32.9 Systemic lupus erythematosus, unspecified (principal)
CPT/HCPCS: 81001; 83520; 84450; 84460; 85651; 86140; 86160; 86225; 86256

== ENCOUNTER → 2020-09-02 11:55 | Outpatient (CLI) | payer MEDICARE, OTHER, SELFPAY ==
[2019-11-20 10:05] VITALS: BMI 26.4
[2020-09-02 13:20] LABS: Add Manual Diff / Slide Review NO; Basophils Absolute Auto 0 /uL (0-100); Basophils Percent Auto 1.2 % (0-2); Eosinophils Absolute Auto 0 /uL (0-450); Eosinophils Percent Auto 1.3 % (2-4); Hematocrit 32.3 % (36-46); Hemoglobin 10.5 g/dL (12.0-16.0); Lymphocytes Absolute Auto 400 /uL (1100-4500); Mean Corpuscular HGB Conc 32.4 % (30-36); Mean Corpuscular Hemoglobin 29.8 PG (26-34); Mean Corpuscular Volume 91.9 fL (80-100); Monocytes Absolute Auto 100 /uL (0-900); Monocytes Percent Auto 3.7 % (3-14); Neutrophils Absolute Auto 1800 /uL (1500-7000); Neutrophils Percent Auto 75.8 % (50-75); Platelet Count 264 X10^3/uL (150-400); Red Blood Cell Count 3.52 X10^6/uL (4.0-5.2); Red Cell Distribution Width 15.3 % (11.6-14.8); White Blood Cell Count 2.3 X10^3/uL (4.5-11.0)
[2020-09-02 13:45] LABS: Erythrocyte Sedimentation Rate 106 MM/HR (0-20)
[2020-09-02 13:47] LABS: Alanine Aminotransferase 24 IU/L (<35); Albumin 3.7 g/dL (3.5-5.0); Albumin Globulin Ratio 0.7 (1.0-2.8); Alkaline Phosphatase 125 U/L (38-126); Aspartate Aminotransferase 33 IU/L (14-36); BUN Creatinine Ratio 31.8 (6-22); Blood Urea Nitrogen 27 mg/dL (7-17); C-Reactive Protein Quant 1.3 mg/dL (<1.0); Calcium 8.9 mg/dL (8.4-10.2); Carbon Dioxide 32 mmol/L (22-32); Chloride 95 mmol/L (98-107); Estimated Glomerular Filt Rate > 60.0 mL/min (>60); Globulin 5.6 g/dL (1.7-4.1); Glucose 96 mg/dL (80-110); HEMOLYSIS < 15 (0-50); Sodium 133 mmol/L (137-145); Total Protein 9.3 g/dL (6.3-8.2)
== END ==
PROVIDERS: PCP Internal Medicine; Referring Provider Internal Medicine Rheumatology; Visit Provider Internal Medicine Rheumatology
DX: M32.9 Systemic lupus erythematosus, unspecified (principal)
CPT/HCPCS: 36415; 80053; 85025; 85651; 86140

== ENCOUNTER → 2020-09-09 13:09 | Outpatient (CLI) | payer MEDICARE, OTHER, SELFPAY ==
[2019-11-20 10:05] VITALS: BMI 26.4
[2020-09-09 14:45] LABS: Add Manual Diff / Slide Review NO; Basophils Absolute Auto 0 /uL (0-100); Basophils Percent Auto 0.3 % (0-2); Eosinophils Absolute Auto 0 /uL (0-450); Hematocrit 32.6 % (36-46); Hemoglobin 10.9 g/dL (12.0-16.0); Lymphocytes Absolute Auto 200 /uL (1100-4500); Mean Corpuscular HGB Conc 33.4 % (30-36); Mean Corpuscular Hemoglobin 30.6 PG (26-34); Mean Corpuscular Volume 91.6 fL (80-100); Monocytes Absolute Auto 100 /uL (0-900); Monocytes Percent Auto 2.7 % (3-14); Neutrophils Absolute Auto 3100 /uL (1500-7000); Platelet Count 205 X10^3/uL (150-400); Red Blood Cell Count 3.56 X10^6/uL (4.0-5.2); Red Cell Distribution Width 15.4 % (11.6-14.8); White Blood Cell Count 3.4 X10^3/uL (4.5-11.0)
[2020-09-09 14:56] LABS: Alanine Aminotransferase 20 IU/L (<35); Albumin 3.8 g/dL (3.5-5.0); Albumin Globulin Ratio 0.7 (1.0-2.8); Alkaline Phosphatase 144 U/L (38-126); Aspartate Aminotransferase 36 IU/L (14-36); BUN Creatinine Ratio 21.1 (6-22); Bilirubin Total 0.7 mg/dL (0.2-1.3); Blood Urea Nitrogen 20 mg/dL (7-17); Calcium 8.9 mg/dL (8.4-10.2); Carbon Dioxide 31 mmol/L (22-32); Chloride 96 mmol/L (98-107); Estimated Glomerular Filt Rate 57.8 mL/min (>60); Globulin 5.4 g/dL (1.7-4.1); Glucose 91 mg/dL (80-110); HEMOLYSIS < 15 (0-50); Potassium 3.6 mmol/L (3.4-5.1); Sodium 134 mmol/L (137-145); Total Protein 9.2 g/dL (6.3-8.2)
== END ==
PROVIDERS: PCP Internal Medicine; Referring Provider Internal Medicine Rheumatology; Visit Provider Internal Medicine Rheumatology
DX: D72.819 Decreased white blood cell count, unspecified (principal); M32.9 Systemic lupus erythematosus, unspecified
CPT/HCPCS: 36415; 80053; 85025

== ENCOUNTER → 2020-10-04 14:58 | Outpatient (CLI) | payer MEDICARE, OTHER, SELFPAY ==
[2019-11-20 10:05] VITALS: BMI 26.4
[2020-10-04 16:32] LABS: Add Manual Diff / Slide Review NO; Basophils Absolute Auto 0 /uL (0-100); Basophils Percent Auto 0.3 % (0-2); Eosinophils Absolute Auto 0 /uL (0-450); Hemoglobin 10.3 g/dL (12.0-16.0); Lymphocytes Absolute Auto 200 /uL (1100-4500); Lymphocytes Percent Auto 4.7 % (25-40); Mean Corpuscular HGB Conc 33.1 % (30-36); Mean Corpuscular Volume 90.6 fL (80-100); Monocytes Absolute Auto 200 /uL (0-900); Monocytes Percent Auto 3.2 % (3-14); Neutrophils Absolute Auto 4400 /uL (1500-7000); Neutrophils Percent Auto 91.8 % (50-75); Platelet Count 221 X10^3/uL (150-400); Red Blood Cell Count 3.42 X10^6/uL (4.0-5.2); Red Cell Distribution Width 16.1 % (11.6-14.8); White Blood Cell Count 4.7 X10^3/uL (4.5-11.0)
[2020-10-04 17:27] LABS: Alanine Aminotransferase 17 IU/L (<35); Albumin 3.7 g/dL (3.5-5.0); Albumin Globulin Ratio 0.9 (1.0-2.8); Alkaline Phosphatase 94 U/L (38-126); Aspartate Aminotransferase 32 IU/L (14-36); BUN Creatinine Ratio 27.2 (6-22); Bilirubin Total 0.6 mg/dL (0.2-1.3); Blood Urea Nitrogen 25 mg/dL (7-17); C-Reactive Protein Quant 1.1 mg/dL (<1.0); Carbon Dioxide 28 mmol/L (22-32); Chloride 99 mmol/L (98-107); Estimated Glomerular Filt Rate > 60.0 mL/min (>60); Globulin 4.2 g/dL (1.7-4.1); Glucose 154 mg/dL (80-110); HEMOLYSIS < 15 (0-50); Sodium 134 mmol/L (137-145); Total Protein 7.9 g/dL (6.3-8.2)
[2020-10-04 17:45] LABS: Erythrocyte Sedimentation Rate 72 MM/HR (0-20)
== END ==
PROVIDERS: PCP Internal Medicine; Referring Provider Internal Medicine Rheumatology; Visit Provider Internal Medicine Rheumatology
DX: M32.9 Systemic lupus erythematosus, unspecified (principal)
CPT/HCPCS: 36415; 80053; 85025; 85651; 86140

== ENCOUNTER → 2020-10-10 13:35 | Outpatient (CLI) | payer MEDICARE, OTHER, SELFPAY ==
[2019-11-20 10:05] VITALS: BMI 26.4
[2020-10-10 15:18] LABS: INR 2.4 (0.9-1.3); Prothrombin Time 27.8 SECONDS (10.1-12.7)
== END ==
PROVIDERS: PCP Internal Medicine; Referring Provider Internal Medicine; Visit Provider Internal Medicine
DX: I48.91 Unspecified atrial fibrillation (principal); Z79.01 Long term (current) use of anticoagulants
CPT/HCPCS: 36415; 85610

== ENCOUNTER → 2020-11-02 11:26 | Outpatient (CLI) | payer MEDICARE, OTHER, SELFPAY ==
[2019-11-20 10:05] VITALS: BMI 26.4
[2020-11-02 12:33] LABS: Add Manual Diff / Slide Review NO; Basophils Absolute Auto 100 /uL (0-100); Eosinophils Absolute Auto 0 /uL (0-450); Eosinophils Percent Auto 0.8 % (2-4); Hematocrit 35.7 % (36-46); Hemoglobin 11.6 g/dL (12.0-16.0); Lymphocytes Absolute Auto 600 /uL (1100-4500); Lymphocytes Percent Auto 10.7 % (25-40); Mean Corpuscular HGB Conc 32.5 % (30-36); Mean Corpuscular Hemoglobin 29.8 PG (26-34); Mean Corpuscular Volume 91.5 fL (80-100); Monocytes Absolute Auto 300 /uL (0-900); Monocytes Percent Auto 6.1 % (3-14); Neutrophils Absolute Auto 4500 /uL (1500-7000); Neutrophils Percent Auto 81.4 % (50-75); Platelet Count 231 X10^3/uL (150-400); Red Cell Distribution Width 17.4 % (11.6-14.8); White Blood Cell Count 5.5 X10^3/uL (4.5-11.0)
[2020-11-02 13:01] LABS: Alanine Aminotransferase 17 IU/L (<35); Albumin 4.2 g/dL (3.5-5.0); Alkaline Phosphatase 74 U/L (38-126); Aspartate Aminotransferase 40 IU/L (14-36); BUN Creatinine Ratio 19.6 (6-22); Bilirubin Total 0.7 mg/dL (0.2-1.3); Blood Urea Nitrogen 20 mg/dL (7-17); C-Reactive Protein Quant 0.9 mg/dL (<1.0); Calcium 9.3 mg/dL (8.4-10.2); Carbon Dioxide 31 mmol/L (22-32); Chloride 98 mmol/L (98-107); Estimated Glomerular Filt Rate 53.3 mL/min (>60); Globulin 4.3 g/dL (1.7-4.1); Glucose 89 mg/dL (80-110); HEMOLYSIS < 15 (0-50); Potassium 3.7 mmol/L (3.4-5.1); Sodium 136 mmol/L (137-145); Total Protein 8.5 g/dL (6.3-8.2)
[2020-11-02 13:24] LABS: Erythrocyte Sedimentation Rate 66 MM/HR (0-20)
== END ==
PROVIDERS: PCP Internal Medicine; Referring Provider Internal Medicine Rheumatology; Visit Provider Internal Medicine Rheumatology
DX: M32.9 Systemic lupus erythematosus, unspecified (principal)
CPT/HCPCS: 36415; 80053; 85025; 85651; 86140

== ENCOUNTER → 2020-12-12 10:55 | Outpatient (CLI) | payer MEDICARE, OTHER, SELFPAY ==
[2019-11-20 10:05] VITALS: BMI 26.4
[2020-12-12 11:31] LABS: Bacteria Urine None Seen; RBC Urine None Seen (0-5/HPF)
[2020-12-12 12:31] LABS: Add Manual Diff / Slide Review NO; Basophils Absolute Auto 0 /uL (0-100); Eosinophils Absolute Auto 100 /uL (0-450); Hematocrit 35.7 % (36-46); Hemoglobin 11.6 g/dL (12.0-16.0); Lymphocytes Absolute Auto 400 /uL (1100-4500); Lymphocytes Percent Auto 9.1 % (25-40); Mean Corpuscular HGB Conc 32.4 % (30-36); Mean Corpuscular Hemoglobin 30.1 PG (26-34); Monocytes Absolute Auto 400 /uL (0-900); Monocytes Percent Auto 9.4 % (3-14); Neutrophils Absolute Auto 3300 /uL (1500-7000); Neutrophils Percent Auto 78.5 % (50-75); Platelet Count 222 X10^3/uL (150-400); Red Blood Cell Count 3.85 X10^6/uL (4.0-5.2); Red Cell Distribution Width 15.2 % (11.6-14.8); White Blood Cell Count 4.2 X10^3/uL (4.5-11.0)
[2020-12-12 13:04] LABS: Appearance Urine UA CLEAR; Bilirubin Urine UA NEGATIVE (NEGATIVE); Color Urine UA YELLOW; Glucose Urine UA NEGATIVE (Negative); Ketones Urine UA NEGATIVE (NEGATIVE); Leukocyte Esterase Urine UA NEGATIVE (NEGATIVE); Nitrite Urine UA NEGATIVE (Negative); Occult Blood Urine UA NEGATIVE (Negative); Protein Urine UA NEGATIVE (Negative); Urobilinogen Urine UA 0.2 E.U./dL (0.2)
[2020-12-12 13:06] LABS: pH Urine UA 6.5 (4.5-8.0)
[2020-12-12 13:09] LABS: Alanine Aminotransferase 11 IU/L (<35); Albumin 4.3 g/dL (3.5-5.0); Albumin Globulin Ratio 1.2 (1.0-2.8); Alkaline Phosphatase 75 U/L (38-126); Aspartate Aminotransferase 28 IU/L (14-36); BUN Creatinine Ratio 20.5 (6-22); Bilirubin Total 0.6 mg/dL (0.2-1.3); Blood Urea Nitrogen 16 mg/dL (7-17); C-Reactive Protein Quant 3.2 mg/dL (<1.0); Calcium 9.3 mg/dL (8.4-10.2); Carbon Dioxide 30 mmol/L (22-32); Chloride 101 mmol/L (98-107); Estimated Glomerular Filt Rate > 60.0 mL/min (>60); Globulin 3.7 g/dL (1.7-4.1); Glucose 84 mg/dL (80-110); HEMOLYSIS < 15 (0-50); Potassium 4.3 mmol/L (3.4-5.1); Sodium 138 mmol/L (137-145)
[2020-12-12 13:30] LABS: Culture Indicated Urine Cult Not Indicated; Squamous Epithelial Cell Urine 0-1 /HPF (0-5/HPF); WBC Urine 0-1/HPF (0-5/HPF)
[2020-12-12 13:34] LABS: Erythrocyte Sedimentation Rate 53 MM/HR (0-20)
[2020-12-13 05:05] LABS: Complement C3 132 mg/dL (82-167)
[2020-12-13 18:36] LABS: DNA (DS) Antibody <1 IU/mL (0-9)
== END ==
PROVIDERS: PCP Internal Medicine; Referring Provider Internal Medicine Rheumatology; Visit Provider Internal Medicine Rheumatology
DX: M32.9 Systemic lupus erythematosus, unspecified (principal)
CPT/HCPCS: 36415; 80053; 81001; 85025; 85651; 86140; 86160; 86225

== ENCOUNTER 2021-03-02 16:48 | Observation (INO) | payer MEDICARE, OTHER, SELFPAY ==
[2019-11-20 10:05] VITALS: BMI 26.4
[2021-03-02 16:52] VITALS: BP 150/70; PULSE 77; RESP 16; TEMP 36.9; O2SAT 100
--- NOTE | 2021-03-02 19:05 | PC.NURSE ---
FINGERER in room speaking to pt
--- NOTE | 2021-03-02 19:25 | ED.MEDCLEAR ---
HPI - Medical Clearance General Chief complaint: Medical Clearance Stated complaint: dementia, lupus, needs help Time Seen by Provider: 03/02/21 19:18 Source: patient Mode of arrival: Ambulatory History of Present Illness HPI Narrative: 70-year-old female nonsmoker with history of dementia and lupus presents with a family friend and the concern about her safety at home. She is not necessarily in a state of health or confusion that is different than her chronic state, per her friend, however she has been home alone for the past week and has not been taking care of herself in regards to hygiene. Friend of the family has video of the home which is very cluttered and unkempt. She normally has her at home with her but he recently fell and suffered a fracture of his leg which turned out to be a pathologic fracture through a tumor and he has a new diagnosis of cancer. He is out of the home for the past week or so and at the [facility]. There is significant concern for her safety at home and she has apparently been occasions in which she wanders off and was escorted back. She is confused and doesn't know why she is here, or the date, but this isnt' necessarily a departure from the normal for her. Related Information Home Medications Medication Instructions Recorded Confirmed sildenafil 100 mg tablet 100 mg PO Q12H tab 08/15/20 10/10/20 mycophenolate mofetil 250 mg 750 mg PO BID cap 10/10/20 10/10/20 capsule (CellCept) prednisone 10 mg tablet 10 mg PO DAILY tab 10/10/20 10/10/20 spironolactone 25 mg tablet 12.5 mg PO BID tab 10/10/20 10/10/20 Previous Rx's Medication Instructions Recorded hydroxychloroquine 200 mg tablet 200 mg PO BID #180 tab 02/09/20 lovastatin 20 mg tablet See Rx Instructions .ROUTE 03/10/20 .COMPLEX #90 tablet furosemide 20 mg tablet 40 mg PO QAM #180 tab 03/24/20 metoprolol succinate 100 mg 50 mg PO BID #180 tab 04/15/20 tablet,extended release 24 hr warfarin 3 mg tablet See Rx Instructions .ROUTE 05/06/20 .COMPLEX #100 tab levothyroxine 125 mcg tablet 125 mcg PO QDAY #90 tab 10/31/20 (Synthroid) omeprazole 40 mg capsule,delayed 40 mg PO BID #180 cap 12/06/20 release magnesium oxide 400 mg (241.3 mg 400 mg PO BID #60 tab 12/12/20 magnesium) tablet Allergies Allergy/AdvReac Type Severity Reaction Status Date / Time doxycycline [DOXYCYCLINE] Allergy Mild HIVES Verified 10/10/20 14:42 Sulfa (Sulfonamide Allergy Mild HIVES Verified 10/10/20 14:42 Antibiotics) [SULFA (SULFONAMIDE ANTIBIOTICS)] tetracycline [TETRACYCLINE] Allergy Mild HIVES Verified 10/10/20 14:42 sulfamethoxazole AdvReac Intermediate UPSET Verified 10/10/20 14:42 [From BACTRIM] STOMACH trimethoprim [From BACTRIM] AdvReac Intermediate UPSET Verified 10/10/20 14:42 STOMACH Review of Systems Review of Systems Narrative: GENERAL: Denies chills, fatigue, malaise, fever, sweats. HEENT: Denies sinus pain, ear pain, sore throat, difficulty swallowing, dizziness. RESPIRATORY: Denies dyspnea, cough, wheezing, hemoptysis, sputum. CARDIOVASCULAR: Denies chest pain, palpitations, orthopnea, edema, GASTROINTESTINAL: Denies nausea, vomiting, abdominal pain, diarrhea, constipation, melena. : Denies dysuria, frequency, incontinence, hematuria, urinary retention. MUSCULOSKELETAL: denies weakness, joint pain, or bony pain SKIN: Denies rash, skin lesions, or other NEUROLOGIC: Denies weakness, headache, numbness, change in speech, confusion, seizures, incoordination. PSYCHIATRIC: No concerning psychosocial issues. 12 point review of systems is negative except for those stated above Patient History Medical History (Updated 03/03/21 @ 00:54 by Suraj Ahn DO) Acquired hypothyroidism (09/14/16) Anemia, normocytic normochromic (10/22/16) Atrial fibrillation (08/19/12) Cardiomyopathy (09/03/13) Cellulitis of right ankle (2006) Cervical radiculopathy CHF (congestive heart failure) Chronic neutropenia (06/18/17) Cognitive dysfunction Colon polyps (2005) COPD (chronic obstructive pulmonary disease) Cubital tunnel syndrome on left (2015) Diastolic dysfunction (09/03/13) 0 Hyperlipidemia (10/26/10) 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 (10/26/10) FPC current use of anticoagulant therapy (08/19/12) Measles CO (myocardial infarction) (08/2011) Mumps Neck pain on left side Pancytopenia (2013) Peripheral edema Plasma cell dyscrasia Pulmonary hypertension Shingles (2007) SVT (supraventricular tachycardia) Systemic lupus erythematosus (SLE) in adult 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 Urinary frequency Surgical History History of appendectomy (~1961) History of bone marrow biopsy (01/22/17) History of breast augmentation (~1979) History of cardiac catheterization (08/2011) History of cardioversion (08/2011) History of cardioversion (09/2016) History of colonoscopy with polypectomy (08/20/16) History of esophagogastroduodenoscopy (EGD) (08/20/16) History of inguinal hernia repair History of permanent cardiac pacemaker placement (2011) History of ventral hernia repair S/P cubital tunnel release (2015) S/P total abdominal hysterectomy and bilateral salpingo-oophorectomy (1984) Status post tonsillectomy and adenoidectomy Family History Father CAD (coronary artery disease) 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 Acute coronary syndrome Arteriosclerosis Atherosclerosis Brother Hearing deficit Brother Cancer Gout Mother No problems noted. Family/Other Cancer Social History Smoking Status: Never smoker Smoking Status: Never smoker alcohol intake frequency: 0-2 drinks per day Substance Use Type: does not use Exam Narrative Exam Narrative: GENERAL: [70] year old patient appears stated age. Well-developed patient, in mild distress. Pleasantly confused HEAD: Atraumatic. Normocephalic. EYES: Pupils equal round and reactive. Extraocular motions intact. No scleral icterus. No injection or drainage. ENT: Nose without bleeding, purulent drainage. Throat without erythema, tonsillar hypertrophy or exudate. Airway patent. NECK: Trachea midline. Non tender CARDIOVASCULAR: Regular rate and rhythm without murmurs, gallops, or rubs. RESPIRATORY: Clear to auscultation. Breath sounds equal bilaterally. No wheezes, rales, or rhonchi. GASTROINTESTINAL: Abdomen soft, non-tender, nondistended. EXTREMITIES: No edema or joint tenderness. BACK: Nontender without deformity or crepitance. No flank tenderness. SKIN: No rash or erythema of visible areas Initial Vital Signs Initial Vital Signs: Vital Signs Temperature 98.5 F 03/02/21 16:52 Pulse Rate 77 03/02/21 16:52 Respiratory Rate 16 03/02/21 16:52 Blood Pressure 150/70 H 03/02/21 16:52 Pulse Oximetry 100 03/02/21 16:52 MDM - Medical Clearance Lab Data Result diagrams: 03/02/21 19:50 03/02/21 19:50 Labs: Lab Results 03/02/21 03/02/21 03/02/21 Range/Units 19:50 19:50 19:54 WBC 3.9 L (4.5-11.0) X10^3/uL RBC 4.02 (4.0-5.2) X10^6/uL Hgb 11.9 L (12.0-16.0) g/dL Hct 36.7 (36-46) % MCV 91.1 (80-100) fL MCH 29.5 (26-34) PG MCHC 32.3 (30-36) % RDW 14.4 (11.6-14.8) % Plt Count 188 (150-400) X10^3/uL Neut % (Auto) 74.7 (50-75) % Lymph % (Auto) 12.9 L (25-40) % [place] % (Auto) 9.4 (3-14) % Eos % (Auto) 1.8 L (2-4) % Baso % (Auto) 1.2 (0-2) % Neut # (Auto) 2900 (6908-4345) /uL Lymph # (Auto) 500 L (4276-1125) /uL [place] # (Auto) 400 (0-900) /uL Eos # (Auto) 100 (0-450) /uL Baso # (Auto) 0 (0-100) /uL Sodium 133 L (137-145) mmol/L Potassium 3.5 (3.4-5.1) mmol/L Chloride 99 (98-107) mmol/L Carbon Dioxide 23 (22-32) mmol/L BUN 21 H (7-17) mg/dL Creatinine 0.92 (0.52-1.04) mg/dL Estimated GFR > 60.0 (>60) mL/min BUN/Creatinine Ratio 22.8 H (6-22) Glucose 97 (80-110) mg/dL Calcium 9.0 (8.4-10.2) mg/dL Total Bilirubin 0.9 (0.2-1.3) mg/dL AST 32 (14-36) IU/L ALT 12 (<35) IU/L Alkaline Phosphatase 61 (38-126) U/L Total Protein 8.1 (6.3-8.2) g/dL Albumin 4.2 (3.5-5.0) g/dL Globulin 3.9 (1.7-4.1) g/dL Albumin/Globulin Ratio 1.1 (1.0-2.8) SARS-CoV-2 (PCR) Negative (Negative) Urine Dip Bedside Urine Glucose Negative Bedside Urine Bilirubin - Negative Bedside Urine Ketone - Negative Urine Specific [place] 1.020 Bedside Urine Occult Blood - Negative Bedside Urine pH 6.0 Bedside Urine Protein - Negative Bedside Urine Urobilinogen +/- 1mg Bedside Urine Nitrite - Negative Bedside Urine Leukocytes - Negative Esterase MDM Narrative Medical decision making narrative: Patient at home alone without any family or help for the past week. She is unable to care for herself and poses a danger to herself and possibly others. Seen by SUSPECT ARTIST SUPERVISOR, there was an order for home health, but without 24 hour assistance patient is high risk. She will stay with us overnight and we will consult her PCP and Care Management for further plans. 0610 - I have discussed with Dr. Hurst (her PCP) he will follow closely and assist with placement as needed. 0700 - patient signed out to Dr. Ahuja for final disposition Discharge Plan Departure Clinical Impression: Adult failure to thrive Prescriptions: No Action lovastatin 20 mg tablet See Rx Instructions .ROUTE .COMPLEX Qty: 90 3RF Dose Instruction: take 1 tablet by mouth EACH NIGHT Rx Instructions: take 1 tablet by mouth EACH NIGHT furosemide 20 mg tablet 40 mg PO QAM Qty: 180 3RF Hold Instructions: Home Medication placed on hold at Doctor's office warfarin 3 mg tablet See Rx Instructions .ROUTE .COMPLEX Qty: 100 6RF Dose Instruction: take 1 tablet by mouth once daily Rx Instructions: Take 1.5mg (1/2 tab) Saturday and Saturday and 3mg all other days levothyroxine [Synthroid] 125 mcg tablet 125 mcg PO QDAY Qty: 90 3RF omeprazole 40 mg capsule,delayed release(DR/EC) 40 mg PO BID Qty: 180 1RF magnesium oxide 400 mg (241.3 mg magnesium) tablet 400 mg PO BID Qty: 60 3RF hydroxychloroquine 200 mg tablet 200 mg PO BID Qty: 180 4RF spironolactone 25 mg tablet 12.5 mg PO BID 0RF prednisone 10 mg tablet 10 mg PO DAILY 0RF mycophenolate mofetil [CellCept] 250 mg capsule 750 mg PO BID 0RF metoprolol succinate 100 mg tablet extended release 24 hr 50 mg PO BID Qty: 180 3RF sildenafil 100 mg tablet 100 mg PO Q12H 0RF Rx Instructions: hold for SBP <100 Referrals: Sky Hurst MD [Primary Care Provider] -
--- NOTE | 2021-03-02 19:28 | DI.CT.S_ITS ---
PROCEDURE: CT HEAD/BRAIN WO CON INDICATIONS: altered, confused TECHNIQUE: Noncontrast 4.5 mm thick angled axial sections acquired from the foramen magnum to the vertex, with coronal and sagittal reformats. For radiation dose reduction, the following was used: automated exposure control, adjustment of mA and/or kV according to patient size. COMPARISON: [facility], CT, CT HEAD/BRAIN WO CON, 11/06/2019, 12:25. FINDINGS: Image quality: Excellent. CSF spaces: Basal cisterns are patent. No extra-axial fluid collections. The ventricles are symmetric in size and shape. Brain: No intracranial bleeds or masses. There is cerebral volume loss for age, with resultant ventricular and sulcal prominence. There is a focal area of cortical volume loss in the right inferior frontal lobe, chronic. This is on a background of periventricular and deep white matter chronic small vessel ischemic changes. There is intracranial internal carotid artery atherosclerosis. Skull and face: Calvarium and visualized facial bones appear intact, without suspicious lesions. Sinuses: Visualized sinuses and mastoids are clear. IMPRESSION: 1. No CT evidence of acute intracranial process. 2. Remote right inferior frontal lobe infarct. 3. Age-appropriate cerebral cortical volume loss and chronic microvascular ischemic changes. Dictated by: Katja Luna M.D. on 03/02/2021 at 20:15 Approved by: Katja Luna M.D. on 03/02/2021 at 20:18
[2021-03-02 20:19] LABS: Add Manual Diff / Slide Review NO; Basophils Absolute Auto 0 /uL (0-100); Basophils Percent Auto 1.2 % (0-2); Eosinophils Absolute Auto 100 /uL (0-450); Eosinophils Percent Auto 1.8 % (2-4); Hematocrit 36.7 % (36-46); Hemoglobin 11.9 g/dL (12.0-16.0); Lymphocytes Absolute Auto 500 /uL (1100-4500); Lymphocytes Percent Auto 12.9 % (25-40); Mean Corpuscular HGB Conc 32.3 % (30-36); Mean Corpuscular Hemoglobin 29.5 PG (26-34); Mean Corpuscular Volume 91.1 fL (80-100); Monocytes Absolute Auto 400 /uL (0-900); Monocytes Percent Auto 9.4 % (3-14); Neutrophils Absolute Auto 2900 /uL (1500-7000); Neutrophils Percent Auto 74.7 % (50-75); Platelet Count 188 X10^3/uL (150-400); Red Blood Cell Count 4.02 X10^6/uL (4.0-5.2); Red Cell Distribution Width 14.4 % (11.6-14.8); White Blood Cell Count 3.9 X10^3/uL (4.5-11.0)
[2021-03-02 20:22] LABS: Alanine Aminotransferase 12 IU/L (<35); Albumin 4.2 g/dL (3.5-5.0); Albumin Globulin Ratio 1.1 (1.0-2.8); Alkaline Phosphatase 61 U/L (38-126); Aspartate Aminotransferase 32 IU/L (14-36); BUN Creatinine Ratio 22.8 (6-22); Bilirubin Total 0.9 mg/dL (0.2-1.3); Blood Urea Nitrogen 21 mg/dL (7-17); Carbon Dioxide 23 mmol/L (22-32); Chloride 99 mmol/L (98-107); Estimated Glomerular Filt Rate > 60.0 mL/min (>60); Globulin 3.9 g/dL (1.7-4.1); Glucose 97 mg/dL (80-110); Potassium 3.5 mmol/L (3.4-5.1); Sodium 133 mmol/L (137-145); Total Protein 8.1 g/dL (6.3-8.2)
--- NOTE | 2021-03-02 20:34 | CM.SWNOTE ---
WOMEN'S SOCCER COACH Assessment Note WOMEN'S SOCCER COACH receives consult and enters room to meet with patient and patient's friend. Patient is 70 y/o female who presents to the ED in need of assistance, due to concern for dementia and Lupus. It is reported that patient's is at right now undergoing surgery after a recent fall and has been diagnosed with cancer. It is reported that patient's reached out to friend to check on friend. Patient is alert and oriented to self, person and place. Patient states it is October , Saturday, Spring - almost Fall and the 2019 when asked about the month, day of the week, season and year. Patient endorses her concern for her memory issues, having dark thoughts and being scared. It is reported that patient has been home alone for almost a week and has not addressed her hygiene in two weeks. Patient's friend shows WOMEN'S SOCCER COACH video of the kitchen and WOMEN'S SOCCER COACH observes clutter in the home. Patient states she feels safe in the home and has not really left the home in about three years. Patient endorses concern for her embarrassment of how she has been. Patient denies family supports and acknowledges her friend Halle and her as her supports. Patient endorses that she is used to being independent but acknowledging that she needs help. It is reported that patient often forgets where she is, why she is there and who she is with. Patient's PCP is Dr. kSy Hurst and patient has Medicare and [employer] Insurance. Patient's friend states that they are working with to get patient a caregiver from visiting [place] and they are coming to the home for an assessment on Saturday. Patient presents with swollen legs and dry legs, patient denies discomfort. Patient's friend states that she has not seen patient in over 3 years. It is reported that patient has a dog and the friend found a safe place for the dog to be due to concern for the care for dog. Patient states she does not drive and she does not have a problem walking around home but does not walk around much. Patient endorses that she has a fear of falling in the home when she is alone. Patient denies HI and SI. Patient endorses that she has unusual feelings, ideas in head and dreams up scenarios where people are around. Friend states that patient saw someone in the home that was not there. WOMEN'S SOCCER COACH discusses HH, provides Medicare choice list and patient has no preference. WOMEN'S SOCCER COACH provides senior resource guide and [facility] brochure due to HH rotation. WOMEN'S SOCCER COACH to refer patient for HH for HH aide, OT, WOMEN'S SOCCER COACH and RN. APS referral submitted due to patient's self neglect and failure to thrive. Online Report Confirmation Number: [id number] Plan: ED provider to assess patient further, WOMEN'S SOCCER COACH to fax HH referral to [facility]. PAUL Harrell
[2021-03-02 21:08] LABS: COVID19 - ADMIT (NP swab/PCR) Negative (Negative)
--- NOTE | 2021-03-02 22:25 | PC.NURSE ---
Pt took personal night time medications given to her by her friend. Her personal medications are at bedside. Pt transferred to hospital bed and room close to nurses station. Friend will be going home for the night.
[2021-03-03] VITALS (11 sets, daily range): BP systolic 100–144; BP diastolic 58–84; PULSE 75–86; RESP 15–18; TEMP 36.8–37; O2SAT 91–100; BMI 23.1
--- NOTE | 2021-03-03 09:59 | PC.NURSE ---
rec'd report from [facility]INA Castillo. Pt awake and confused. sitting over side of bed eating breakfast. recent vitals taken. assisted back to bed. NAD
--- NOTE | 2021-03-03 14:46 | CM.SWNOTE ---
REEL TENDER Note Reviewed chart. Spoke w/ Dr Ahuja re plans for today. Patient has no medical diagnosis for admission at this time. [employer] insurer cannot be used from the ED to SNF today. Met w/patient, introduced role. Patient admits, as she did to REEL TENDER Tara Perez last night, that she has become fearful at home . Patient denies SI/HI; states she has had periods of confusion and states I think they are getting better. Discussed options from the ED, discussed respite care options. Patient states she needs to think about that, do I have any time?. Patient then requests this REEL TENDER placed call to either of her good friends Halle Coon P# [phone] and Shira Siegel P# [phone] to discuss plans further. Placed call to Halle; according to our conversation: Halle is very concerned about patient's well being and cannot take patient home to care for her. Halle has caught patient wandering her home, inside and outside. Patient has been seen mistaking objects in her home ie picks up salad dressing instead of the phone. Halle does not think either patient or her Jeremy have done dishes for years and that no one can safely make it through their home d/t hoarding. Halle does not think patient's home is safe until it is cleaned thoroughly. Halle gives this REEL TENDER spouse Jeremy's information- he is currently admitted in the Ortho/Neuro wing (?) w/bone cancer, at [facility], room # 411. Halle got in touch w/Jeremy when she brought patient to the ED. Asked Halle about patient/spouse's finances to which she states I have no idea. Patient/spouse have no children and no living family that Halle is aware of. The only people that have access to their finances are patient/spouse. No DPOA assigned at this time. Halle requests updates if appropriate and reiterates she can be a support by phone and for background information, but cannot care for patient, Halle has no contacts to offer this REEL TENDER that may be able to take patient home. Updated [facility] Bethea that this patient is not leaving the ER today; unless the ED staff can secure a contact of someone that is able to care for and provide 24/7 assist to this patient at home. In addition, there is no contact avaialible to access patient's finances to secure a respite stay at this time. Safety of DCP has not been confirmed at this time. APS referral started by ED REEL TENDER Tara Perez last night d/t failure to thrive, suspicion of self neglect Will plan to see this patient tomorrow 03.04.21 if she remains here. PAUL Aden
--- NOTE | 2021-03-03 15:55 | PC.NURSE ---
Day shift: Pt on unit from ED and approx 1545. She knows her name and birthday. SHe knows she is in [facility]. She thought the year was 2025. She also knows that her is at surgery. She also knows her husbands name is Jeremy. Her VS WNL. She doesn't want to get in gown yet. Her BLE's are dusky with dry cracked skin (pictures will be taken). In bed and oriented to call light and room. Denies any nausea or pain. Has asked for a glass of wine with her dinner and said that will help with anxiety. Bed alarm is on and door to room is open. Pt has demenstrated that she is steady on her feet with use of her cane. NO MD orders at this time. IV in rt hand.
--- NOTE | 2021-03-03 17:17 | P.HP_ITS ---
History of Present Illness History of Present Illness Date Patient Seen: 03/03/21 Time Patient Seen: 17:17 Chief complaint: dementia, lupus, needs help Narrative: 70-year-old female well known to me with complex medical history including probable systemic lupus erythematosus, severe pulmonary hypertension resulting in significant cardiac issues severe COPD causing the pulmonary hypertension an element of dementia. She has been home alone as her (who is also my patient) sustained a pathologic fracture of his femur and is hospitalized elsewhere and has been for over a week. Patient's spouse asked friends to check on patient she was transported [facility] Emergency Department. In the ER she was evaluated found to be actually okay seem to be stable from a medical standpoint but clearly the conditions in the home suggest that she is not appropriate to be left alone at home to care for self independently. She is admitted for care while efforts are made to find appropriate living arrangements for patient. Patient herself has very little insight into much of this. She seems to know that her had broke his leg but seems to think he is at home but then she seems to know he is in a hospital somewhere in that she has been alone for a while. This is pretty much her baseline Patient History Medical History Acquired hypothyroidism (09/14/16) Anemia, normocytic normochromic (10/22/16) Atrial fibrillation (08/19/12) Cardiomyopathy (09/03/13) Cellulitis of right ankle (2006) Cervical radiculopathy CHF (congestive heart failure) Chronic neutropenia (06/18/17) Cognitive dysfunction Colon polyps (2005) COPD (chronic obstructive pulmonary disease) Cubital tunnel syndrome on left (2015) Diastolic dysfunction (09/03/13) 0 Hyperlipidemia (10/26/10) 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 (10/26/10) half-way current use of anticoagulant therapy (08/19/12) Measles HI (myocardial infarction) (08/2011) Mumps Neck pain on left side Pancytopenia (2013) Peripheral edema Plasma cell dyscrasia Pulmonary hypertension Shingles (2006) SVT (supraventricular tachycardia) Systemic lupus erythematosus (SLE) in adult 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 Urinary frequency Surgical History History of appendectomy (~1961) History of bone marrow biopsy (01/22/17) History of breast augmentation (~1980) History of cardiac catheterization (08/2011) History of cardioversion (08/2011) History of cardioversion (09/2016) History of colonoscopy with polypectomy (08/20/16) History of esophagogastroduodenoscopy (EGD) (08/20/16) History of inguinal hernia repair History of permanent cardiac pacemaker placement (2011) History of ventral hernia repair S/P cubital tunnel release (2015) S/P total abdominal hysterectomy and bilateral salpingo-oophorectomy (1984) Status post tonsillectomy and adenoidectomy Family & Social History Family History Father CAD (coronary artery disease) 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 Acute coronary syndrome Arteriosclerosis Atherosclerosis Brother Hearing deficit Brother Cancer Gout Mother No problems noted. Family/Other Cancer Safety & Behavioral: Feels Safe in Current Yes Environment Been Physically Hurt or No Threatened By a Person Tobacco & Substance use: Smoking Status Never smoker alcohol intake frequency 0-2 drinks per day Substance Use Type does not use Meds Home Medications and Allergies Home Medications Medication Instructions Recorded Confirmed Type hydroxychloroquine 200 mg tablet 200 mg PO BID #180 tab 02/09/20 03/03/21 Rx furosemide 20 mg tablet 40 mg PO QAM #180 tab 03/24/20 03/03/21 Rx metoprolol succinate 100 mg 50 mg PO BID #180 tab 04/15/20 03/03/21 Rx tablet,extended release 24 hr warfarin 3 mg tablet See Rx Instructions .ROUTE 05/06/20 03/03/21 Rx .COMPLEX #100 tab sildenafil 100 mg tablet 100 mg PO TID tab 08/15/20 03/03/21 History spironolactone 25 mg tablet 12.5 mg PO BID tab 10/10/20 03/03/21 History levothyroxine 125 mcg tablet 125 mcg PO QDAY #90 tab 10/31/20 Rx (Synthroid) omeprazole 40 mg capsule,delayed 40 mg PO BID #180 cap 12/06/20 03/03/21 Rx release magnesium oxide 400 mg (241.3 mg 400 mg PO BID #60 tab 12/12/20 03/03/21 Rx magnesium) tablet gabapentin 300 mg capsule 600 mg PO BID PRN 03/03/21 03/03/21 History lovastatin 20 mg tablet 20 mg PO BEDTIME 03/03/21 03/03/21 History mycophenolate mofetil 500 mg tablet See Rx Instructions .ROUTE .COMPLEX 03/03/21 03/03/21 History prednisone 5 mg tablet 7.5 mg PO DAILY 03/03/21 03/03/21 History Allergies Allergy/AdvReac Type Severity Reaction Status Date / Time doxycycline [DOXYCYCLINE] Allergy Mild HIVES Verified 10/10/20 14:42 Sulfa (Sulfonamide Allergy Mild HIVES Verified 10/10/20 14:42 Antibiotics) [SULFA (SULFONAMIDE ANTIBIOTICS)] tetracycline [TETRACYCLINE] Allergy Mild HIVES Verified 10/10/20 14:42 sulfamethoxazole AdvReac Intermediate UPSET Verified 10/10/20 14:42 [From BACTRIM] STOMACH trimethoprim [From BACTRIM] AdvReac Intermediate UPSET Verified 10/10/20 14:42 STOMACH Review of Systems Constitutional Constitutional: Denies fever(s), Denies headache(s) and Denies weakness Eyes Eyes: Denies change in vision and Denies loss of vision ENT Ears, Nose, Mouth, and Throat: No change in voice, No dysphagia, No otalgia, No headache(s), No hoarseness, No neck pain, No sore throat, No throat swelling and No tongue swelling Cardiovascular Cardiovascular: Denies chest pain, Denies rapid heart rate, Denies irregular heart rhythm, Denies palpitations, Denies dyspnea and Denies dyspnea on exertion Respiratory Respiratory: Denies chest congestion, Denies cough, Denies dyspnea and Denies dyspnea on exertion Gastrointestinal Gastrointestinal: Denies abdominal pain, Denies bloating, Denies dysphagia and Denies vomiting Musculoskeletal Musculoskeletal: Denies neck pain Neurologic Neurologic: Denies headache(s), Denies loss of vision and Denies weakness Endocrine Endocrine: Denies palpitations Allergic/Immunologic Allergic/Immunologic: Denies throat swelling and Denies tongue swelling Exam Vital Signs (past 8 hours): - 03/03/21 09:37 03/03/21 10:00 03/03/21 10:09 Temperature 98.3 F Pulse Rate 77 75 Respiratory Rate Blood Pressure 126/72 144/82 H Pulse Oximetry 99 100 98 03/03/21 14:44 03/03/21 15:50 Temperature 98.6 F Pulse Rate 86 75 Respiratory Rate 18 Blood Pressure 126/76 132/84 Pulse Oximetry 91 99 Oxygen Delivery Method Room Air Oxygen Flow Rate 0 Narrative Exam Narrative: Elderly female who appears in no acute distress lying in her hospital bed working on eating dinner HEENT-normocephalic atraumatic PERRLA EOMs intact Neck-no lymphadenopathy no bruits Lungs-clear Heart-irregularly regular Abdomen-soft nontender nondistended Extremities-massive bilateral chronic lymphedema/peripheral edema with significant keratotic change and dark pigmentation, at baseline it appears Objective Labs Result Diagrams: 03/02/21 19:50 03/02/21 19:50 Labs: Laboratory Results - last 24 hr 03/02/21 03/02/21 03/02/21 19:50 19:50 19:54 WBC 3.9 L RBC 4.02 Hgb 11.9 L Hct 36.7 MCV 91.1 MCH 29.5 MCHC 32.3 RDW 14.4 Plt Count 188 Neut % (Auto) 74.7 Lymph % (Auto) 12.9 L Dixie % (Auto) 9.4 Eos % (Auto) 1.8 L Baso % (Auto) 1.2 Neut # (Auto) 2900 Lymph # (Auto) 500 L Dixie # (Auto) 400 Eos # (Auto) 100 Baso # (Auto) 0 Sodium 133 L Potassium 3.5 Chloride 99 Carbon Dioxide 23 BUN 21 H Creatinine 0.92 Estimated GFR > 60.0 BUN/Creatinine Ratio 22.8 H Glucose 97 Calcium 9.0 Total Bilirubin 0.9 AST 32 ALT 12 Alkaline Phosphatase 61 Total Protein 8.1 Albumin 4.2 Globulin 3.9 Albumin/Globulin Ratio 1.1 SARS-CoV-2 (PCR) Negative Assessment & Plan Assessment & Plan narrative: 1. Failure to thrive-with patient's multiple comorbidities including most importantly her cognitive dysfunction she is not appropriate to be home alone. Unfortunately her primary caregiver is her spouse who is not available to care for her. Certainly will have discharge planning and care management team work on finding appropriate arrangements to be able to provide 24/7 care which would be necessary. She was seen by social work in the ER and nobody was able to contact patient's spouse. Friend who did go check on her was contacted but unable to provide 24/7 care or any additional information for further contacts. No family available that anyone appears to be aware of. An APS referral was started. I have her seen by Physical therapy while she is here. Fortunately her lab work etcetera was unremarkable. Does not appear to be significantly dehydrated and most likely has been taking at least enough for medications to keep her medical issues stable 2. COPD-continue patient's usual medications. She is actually more symptomatic from a cardiac standpoint from her cor pulmonale than anything else. 3. Pulmonary hypertension/cor pulmonale-continue patient's usual medications. Her vital signs are good she is actually pretty asymptomatic. 4. SLE-continue patient's immune modulating drugs. This includes prednisone and CellCept. She is also on hydroxychloroquine. 5. 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-continue patient's usual medications 6. Peripheral edema-patient with severe longstanding peripheral edema/severe angioedema of lower extremities. Her current status appears to be a baseline. No reason to make any changes in overall medical regimen. Increased doses of diuretics have had very little effect on this. This is now chronic condition obviously 7. Atrial fibrillation-continue patient's usual meds including her anticoagulati on with warfarin. Need to check protime tomorrow. 8. Cardiomyopathy-likely secondary to her pulmonary issues. Continue usual medication she remains asymptomatic at this time 9. Hypothyroidism-continue patient's usual medications 10. VTE prophylaxis-patient chronic anticoagulated with warfarin. No additional prophylaxis appropriate or necessary 11. Code status-I have discussed with patient's spouse off and on at times about long-term goals of treatment. He would like her to be kept comfortable if at all possible. We have sort of peripherally discussed what to do in the event of a sudden cardiac or respiratory arrest and patient's spouse was very clear that he felt like she would best be kept comfortable as a primary goal without heroic interventions. Therefore it made her no code for the purposes this hospitalization which does not at this point appear to be an active issue. I tried calling patient's spouse on his cellphone which is [phone], but was only able to leave a voicemail. Time Spent With Patient Critical Care time: I spent a total of [] minutes of critical care time on this patient's care today; this time is exclusive of procedural time.
--- NOTE | 2021-03-03 17:23 | PC.NURSE ---
Day shift: This senior technical writer talked to Dr Hurst and gave brief update on Pt's current condition. Orders have been placed by Dr Hurst. Dr Harrell also informed that Dr Hurst will care for this Pt. Pt resting supine in bed w/ no complaints. Keeps asking for something to eat. Continues to be calm and cooperative w/ care. Call light in reach. Bed alarm on. Dr Hurst has also come to see Pt face to face at approx 1730 today.
[2021-03-03] MEDS: LORazepam 0.5 MG TABLET PO ×2 (17:57→22:14)
--- NOTE | 2021-03-03 18:44 | PC.NURSE ---
Day shift: Pt came to unit with bag of home meds and these taken to pharmacy for lock up. Pt has her clothes on, a cane from home and shoes. THose are the only possessions she came to the AC unit with today.
[2021-03-03] MEDS: METOPROLOL ER 50 MG TABLET PO (20:37)
[2021-03-03] MEDS: HYDROXYCHLOROQUINE 200 MG TABLET PO (20:37)
[2021-03-03] MEDS: MAGNESIUM OXIDE 400 MG TABLET PO (20:37)
[2021-03-03] MEDS: SPIRONOLACTONE 25 MG TABLET 12.5 MG PO (20:38)
[2021-03-03] MEDS: PANTOPRAZOLE DR 40 MG TABLET PO (20:39)
[2021-03-03] MEDS: SILDENAFIL 20 MG TABLET 100 MG PO (20:41)
[2021-03-03] MEDS: ATORVASTATIN 20 MG TABLET 10 MG PO (20:55)
[2021-03-04] MEDS: LEVOTHYROXINE 125 MCG TABLET PO (06:09)
[2021-03-04 06:20] VITALS: BP 131/71; PULSE 79; RESP 17; TEMP 36.9; O2SAT 97
[2021-03-04 06:59] LABS: INR 1.3 (0.9-1.3); Prothrombin Time 14.8 SECONDS (10.1-12.7)
[2021-03-04 08:24] VITALS: BP 126/73; PULSE 78; RESP 16; TEMP 36.9; O2SAT 98
[2021-03-04] MEDS: FUROSEMIDE 20 MG TABLET 40 MG PO (08:27)
[2021-03-04] MEDS: HYDROXYCHLOROQUINE 200 MG TABLET PO (08:27)
[2021-03-04] MEDS: predniSONE 5 MG TABLET 7.5 MG PO (08:30)
[2021-03-04] MEDS: SILDENAFIL 20 MG TABLET 100 MG PO ×2 (08:30→14:34)
[2021-03-04 08:48] VITALS: BP 131/71; PULSE 79
[2021-03-04] MEDS: METOPROLOL ER 50 MG TABLET PO (08:48)
[2021-03-04] MEDS: MAGNESIUM OXIDE 400 MG TABLET PO (08:48)
[2021-03-04] MEDS: PANTOPRAZOLE DR 40 MG TABLET PO (08:49)
[2021-03-04] MEDS: MYCOPHENOLATE MOFETIL 500 MG TABLET 1500 MG PO (08:56)
[2021-03-04] MEDS: SPIRONOLACTONE 25 MG TABLET 12.5 MG PO (08:56)
--- NOTE | 2021-03-04 09:12 | CM.IDA ---
Initial DCP Assessment Note- Update See prior SIGN BOARD ERECTOR Note for background info Placed call to spouse Jeremy's room, 411, at hospital last night; reviewed patient's obs admission and Jeremy reported relief that patient safe; Jeremy explained that he had been caring for his who had been exhibiting signs of dementia for 2+ years. Jeremy s/p repair of his fractured femur and states he is on an oral chemo med for his bone cancer. Did not discuss DCP options at this time d/t lateness in the day; will need to revisit w/spouse today. Spouse unsure whether he and spouse have Critical access hospital or [facility] managed [facility] Discharge Planning/Care Management CM Discharge Assessment Start: 03/04/21 09:06 Freq: Status: Active Protocol: Document 03/04/21 09:08 HERMILO (Rec: 03/04/21 09:11 HERMILO [id number]) Discharge Planning Assessment Assigned Driver Service Technician PAUL Guzman DPOA/Assigned Designee Name Jeremy Pearl, spouse ( currently admitted at ) Contact Information [phone], states his cell phone is not charged Advance Directives? No History Provided By Patient,Friend,Significant Other Prior Living Arrangements House Household Members spouse Type of transporation used prior to Relies on Others admit Independent with ADL's No Is patient alert and oriented? No Patient/Family Preference [facility] Facility Barriers to Discharge Yes Comment Spouse currently admitted at after a bone cancer - related femur fx and repair. Patient has been alone at home , has dementia, wanders. No one to assist. Need to discuss available funds w/spouse Jeremy in order to secure placement. Observation
[2021-03-04 10:11] VITALS: BP 128/70
--- NOTE | 2021-03-04 10:19 | PM.PN.1 ---
Subjective Subjective Date Patient Seen: 03/04/21 Time Patient Seen: 10:19 Interval history: Basically unchanged from last night. Uneventful evening. I tried calling patient's spouse last evening but cellphone did not greens picker. I waited till this morning and then called him at the [facility] spoke with him. He is in the hospital there because of pathologic fracture of his femur which is now been repaired and per him anticipating possible discharge to residential as early as Saturday the . He also spoke with care management staff last evening and I am sure will hear from them again today. I reassured him that his is safe and she does not look to be ?any worse for the wear ?but we do need to come up with a safe discharge plan before she can leave the hospital Exam Vital Signs (past 8 hours): - 03/04/21 06:20 03/04/21 08:24 03/04/21 08:48 Temperature 98.5 F 98.4 F Pulse Rate 79 78 79 Respiratory Rate 17 16 Blood Pressure 131/71 126/73 131/71 Pulse Oximetry 97 98 03/04/21 10:11 Temperature Pulse Rate Respiratory Rate Blood Pressure 128/70 Pulse Oximetry Oxygen Delivery Method Room Air Oxygen Flow Rate 0 Objective Labs Result Diagrams: 03/02/21 19:50 03/02/21 19:50 Labs: Laboratory Results - last 24 hr 03/04/21 06:40 PT 14.8 H INR 1.3 PFSH Medical History Acquired hypothyroidism (09/14/16) Anemia, normocytic normochromic (10/22/16) Atrial fibrillation (08/19/12) Cardiomyopathy (09/03/13) Cellulitis of right ankle (2006) Cervical radiculopathy CHF (congestive heart failure) Chronic neutropenia (06/18/17) Cognitive dysfunction Colon polyps (2005) COPD (chronic obstructive pulmonary disease) Cubital tunnel syndrome on left (2015) Diastolic dysfunction (09/03/13) 0 Hyperlipidemia (10/26/10) 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 (10/26/10) alf current use of anticoagulant therapy (08/19/12) Measles PA (myocardial infarction) (08/2011) Mumps Neck pain on left side Pancytopenia (2013) Peripheral edema Plasma cell dyscrasia Pulmonary hypertension Shingles (2006) SVT (supraventricular tachycardia) Systemic lupus erythematosus (SLE) in adult 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 Urinary frequency Surgical History History of appendectomy (~1961) History of bone marrow biopsy (01/22/17) History of breast augmentation (~1979) History of cardiac catheterization (08/2011) History of cardioversion (08/2011) History of cardioversion (09/2016) History of colonoscopy with polypectomy (08/20/16) History of esophagogastroduodenoscopy (EGD) (08/20/16) History of inguinal hernia repair History of permanent cardiac pacemaker placement (2011) History of ventral hernia repair S/P cubital tunnel release (2015) S/P total abdominal hysterectomy and bilateral salpingo-oophorectomy (1984) Status post tonsillectomy and adenoidectomy Family History Father CAD (coronary artery disease) 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 Acute coronary syndrome Arteriosclerosis Atherosclerosis Brother Hearing deficit Brother Cancer Gout Mother No problems noted. Family/Other Cancer Social History household members: spouse Smoking Status: Never smoker Assessment & Plan Assessment & Plan narrative: 1. Patient's various medical problems seem to be stable. No active issues. Vital signs are good etcetera. IV came out overnight no need to replace. Continue patient's usual meds and hopefully she will remain stable. No reason why she should not. Disposition continues to be the most challenging issue. Care management will continue work on this. I am uncertain as to whether there friends or family that can provide assistance as she will clearly need 24/7 care. She may end up in some sort of alternative facility that is yet to be determined however. For the moment however she is safe and will remain in the hospital until a safe discharge plan can be determined Note: Greater than 20 minutes total time was spent on day of service, evaluating the patient on the floor, including examining the patient, discussing clinical course with clinical and nursing staff, reviewing clinical course in the computer, preparing documentation and writing orders for continued management of care, discussing status with family as appropriate, reviewing plans for the next 24 hours with both patient/family and nursing staff as appropriate. LINDA-19 COVID-19 status: Negative Result date/Date tested (Pos, Neg/Pending): 03/03/21 Quality VTE Deep Vein Thrombosis/Pulmonary Embolism Present on Admission: No
--- NOTE | 2021-03-04 10:40 | PT.IIE ---
Surgical History (Last Reviewed 03/03/21 @ 17:29 by Sky Hurst MD) History of breast augmentation (~1979) History of cardioversion (08/2011) History of cardioversion (09/2016) S/P total abdominal hysterectomy and bilateral salpingo-oophorectomy (1984) Status post tonsillectomy and adenoidectomy Medical History (Last Reviewed 03/03/21 @ 17:29 by Sky Hurst MD) Acquired hypothyroidism (09/14/16) Anemia, normocytic normochromic (10/22/16) Atrial fibrillation (08/19/12) Cardiomyopathy (09/03/13) Cellulitis of right ankle (2006) Cervical radiculopathy CHF (congestive heart failure) Chronic neutropenia (06/18/17) Cognitive dysfunction Colon polyps (2005) COPD (chronic obstructive pulmonary disease) Cubital tunnel syndrome on left (2015) Diastolic dysfunction (09/03/13) 0 Hyperlipidemia (10/26/10) 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 (10/26/10) 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 (08/19/12) Measles [place] (myocardial infarction) (08/2011) Mumps Neck pain on left side Pancytopenia (2013) Peripheral edema Plasma cell dyscrasia Pulmonary hypertension Shingles (2006) SVT (supraventricular tachycardia) Systemic lupus erythematosus (SLE) in adult 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 Prior Functional Level (Other details) per chart: pt has dementia and spouse is pt's caregiver but spouse suffered a hip fracture and now hospitalized and pt is alone at home and unable to care for herself. Social History Household Members spouse Living Arrangements House Number of Floors (Floors) Two Floors Number of Stairs To Enter/Railing? pt stays on main level of the house 4 steps with wide 2 rails and can only hold on to one rail at a time Home Environment Standard Height Toilet,Walk in Shower Home Equipment Straight Cane,Grab Bars Near Toilet,Grab Bars In Shower M2 PT-IP Current Condition Start: 03/04/21 12:37 Freq: NEEDED Status: Active Protocol: Document 03/04/21 10:40 AB (Rec: 03/04/21 12:52 AB [email or web address]) Physical Therapy Current Condition Current Condition Evaluation Date 03/04/21 Treatment Diagnosis adult failure to thrive; difficulty in walking Onset Date 03/03/21 M3 PT-IP Subjective Start: 03/04/21 12:37 Freq: NEEDED Status: Active Protocol: Document 03/04/21 10:40 AB (Rec: 03/04/21 12:52 AB [email or web address]) Subjective Physical Therapy Visit Type Type Initial Evaluation Visit Start Time 10:40 Visit Stop Time 11:10 Total Visit Minutes 30 Number of EXPLOITATION ANALYST Visits 0 Physical Therapy Visit Comments Patient Comments agreeable to do PT M4 PT-IP Mobility and Gait Start: 03/04/21 12:37 Freq: NEEDED Status: Active Protocol: Document 03/04/21 10:40 AB (Rec: 03/04/21 12:52 AB [email or web address]) PT-Bed Mobility Assessment Supine to Sit Supine to Sit Standby Assistance Sit to Supine Sit to Supine Standby Assistance PT-Transfer Assessment Sit to and From Stand Sit to and from Stand Standby Assistance,1 Person Assistance,Use of Upper Extremities Equipment Transfer Assistive Device Gait Belt,Straight Cane Orthotic/Prosthetic Devices or Brace: No Transfers Transfer Destination Bed,Chair Transfer Technique Stand Step Pivot Transfer Ability Level of Assist Standby Assistance,Use of Upper Extremities Comments Mobility Comments pt up using the toilet with NAC. PT took over. pt ambulated towards the sink using SPC CGA. able to stand SBA while doing handwashing and grooming. cued for safety and use of equipement. pt with confusion due to dementia . pt ambulated to the chair using SPC SBA. ambulated in room using SPC SBA ~ 30 ft. unsteady gait and cued to use SPC for steadiness. pt completed sit to stand from chair SBA and transferred to bed using SPC and completed sit<>supine SBA. pt ambulated out in the hallway using SPC and initially requiring SBA but midway, needed CGA for steadiness. pt stated that she is getting tired. completed up/down stairs using L rail +R SPC CGA. pt ambulated back to her room using SPC CGA. agreed to sit on chair. positioned on chair . call light and table placed within reach. Gait Assessment Gait Gait Assistance Required: Standby Assistance,Contact Guard Assist Distance (Feet) 250 Able to Maintain Weight Bearing Status Yes During Gait Assistive Devices Assistive Device Gait Belt,Straight Cane Orthotic/Prosthetic Devices or Brace: No Gait Deviations General Gait Pattern Antalgic,Decreased Stride Length,Decreased Feet Clearance Factors Limiting Gait Function Factors Limiting Gait Function Decreased Activity Tolerance, Decreased Strength,Difficulty Following Directions,Poor Balance,Poor Safety Awareness Stair Climbing Assessment Evaluation Level of Assist On Stairs Contact Guard Assistance Devices Stair Climbing Assistive Devices Straight Cane,Left Railing Technique/Endurance Stair Climbing Direction Ascend and Descend Stair Climbing Technique Step to Step Number of Steps Climbed 3 Query Text: Stair Climbing Set # Repetitions (reps) 1 PT-Balance Assessment Sitting Balance and Reactions Static Sitting Balance Ability Good Dynamic Sitting Balance Ability Good Standing Balance and Reactions Static Standing Balance Ability Fair Dynamic Standing Balance Ability Fair Device Used SPC M5 PT-IP Objective Assessments Start: 03/04/21 12:37 Freq: NEEDED Status: Active Protocol: Document 03/04/21 10:40 AB (Rec: 03/04/21 12:52 AB [email or web address]) Orientation Orientation/Cognition Level of Alertness Confusional State Orientation Name Safety Awareness Decreased Safety Awareness Memory Description Short Term Impaired,Cotton Picker Impaired Gross Range of Motion Lower Extremity ROM Assessment Within Functional Limits Strength Lower Extremity Strength Assessment Bilaterally Impaired Hip 4-/5 Knee 3+/5 Muscle Tone Muscle Tone WNL Yes M6 PT-IP Treatment Start: 03/04/21 12:37 Freq: NEEDED Status: Active Protocol: Document 03/04/21 10:40 AB (Rec: 03/04/21 12:52 AB [email or web address]) Physical Therapy Treatment Education Education Provided Safety M7 PT-IP Assessment and Plan Start: 03/04/21 12:37 Freq: NEEDED Status: Active Protocol: Document 03/04/21 10:40 AB (Rec: 03/04/21 12:52 AB [email or web address]) PT Summary Assessment and Plan Potential Rehabilitation Potential Fair Status of Condition at Evaluation Stable Summary Impairments Pain,ROM,Strength,Balance, Coordination,Sensation,Tone, Cognition,Bed Mobility, Transfers,Gait,Activity Tolerance Assessment Summary pt requiring SBA to CGA with mobility using SPC. pt will needs assistance at home for safety due to cognitive issues affecting safety awareness but pt able to follow directions and agreeable to instructions. Pt with diagnosis of dementia and will needs somebody to assist or supervise pt for safety and directions for safe mobility. At this time, pt is by herself due to spouse being in the hospital. Goals Bed Mobility Goal Independent Transfer Goal Independent,Cane Gait Goal Independent,Cane Gait Distance 250 Other Goals up/down 4 steps 1 rail + cane mod I Days to Meet Goals 5 Frequency of Treatment Frequency Of Treatment Once a Day Treatment Plan Physical Therapy Treatment Plan Bed Mobility Training,Transfer Training,Gait Training, Therapeutic Exercise,Balance Retraining,Post Op Education, Discharge Planning,Hot or Cold Pack,Neuromuscular Re-ed, Coordination Retraining,Manual Therapy Precautions Other Precautions falls Recommendations To Nursing Amount of Assist Needed 1 Person Assist Discharge Recommendations PT Discharge Recommendations Home with 24/7 Assist Available,Home Health Other Discharge Recommendations home with 24/7 supervision due to safety/ CUSTODIAL Transportation Needs at Discharge Private Vehicle
[2021-03-04 11:20] VITALS: BP 118/84; PULSE 82; RESP 16; TEMP 36.6; O2SAT 99
--- NOTE | 2021-03-04 14:05 | PC.NURSE ---
Pt sitting in chair, ambulated in hallway w/ staff w/o incidence Alert w/some confusion. Lungs clear, SpO2 96% RA. Denies any discomfort, Condition remains essentially unchanged. Call light w/in reach, Chair alarm on for pt safety. Continue w/plan of care.
--- NOTE | 2021-03-04 15:18 | CM.DPNOTE ---
DCP Note Placed call to spouse Jeremy this morning [facility] P# [phone] Rm 411, Jeremy Pearl (Jeremy does not know the direct number to his hospital rm). Explained that patient has no medical reason to be on the acute care floor, Jeremy understood this. Suggested Jeremy pay for an emergency respite stay and Jeremy agreeable, states he has his credit card in his wallet at . Explained he will be required to pay a deposit for any facility in order for patient o move in, Jeremy stated understanding. Placed call to the following facilities asking for emergency respite: [facility]- No weekend admission coverage [facility]- No weekend admission coverage [facility]- Someone might be in Saturday, admissions [facility]- Saturday will be the earliest [facility]- No weekend admission coverage, [facility] (ED) P# [phone], Mark (female) Nurse Coordinator P# [phone] [facility]- No weekend admission coverage [facility]- No beds [place]: Took this ORAL HYGIENIST contact for return call [facility]- Admissions back on Saturday [facility]- No weekend admission coverage [facility]- Took this ORAL HYGIENIST contact to give Valentina, Admissions Patient remains calm and compliant; easily re-directable. it appears patient would benefit from a locked dementia unit, she likes to walk the hallway w/staff, uses her cane. CM team following closely, spouse Jeremy states he is prepared to pay for a respite stay once a bed is secured. PAUL Aden
[2021-03-04] MEDS: MYCOPHENOLATE MOFETIL 500 MG TABLET 1000 MG PO (17:14)
[2021-03-04] MEDS: WARFARIN 1 MG TABLET 3 MG PO (17:18)
[2021-03-04] MEDS: LORazepam 0.5 MG TABLET PO (17:54)
[2021-03-04 20:47] VITALS: BP 125/77; PULSE 82; RESP 18; TEMP 36; O2SAT 96
[2021-03-05] VITALS (7 sets, daily range): BP systolic 120–143; BP diastolic 63–92; PULSE 76–89; RESP 16–17; TEMP 36.1–37.3; O2SAT 97–99
[2021-03-05] MEDS: MAGNESIUM OXIDE 400 MG TABLET PO ×3 (00:42→20:40)
[2021-03-05] MEDS: SILDENAFIL 20 MG TABLET 100 MG PO ×3 (00:42→15:52)
[2021-03-05] MEDS: METOPROLOL ER 50 MG TABLET PO ×3 (00:44→20:40)
[2021-03-05] MEDS: SPIRONOLACTONE 25 MG TABLET 12.5 MG PO ×3 (00:44→20:40)
[2021-03-05] MEDS: ATORVASTATIN 20 MG TABLET 10 MG PO ×2 (00:45→20:40)
[2021-03-05] MEDS: PANTOPRAZOLE DR 40 MG TABLET PO ×3 (00:45→20:40)
[2021-03-05] MEDS: LORazepam 0.5 MG TABLET PO ×2 (00:46→06:20)
[2021-03-05] MEDS: HYDROXYCHLOROQUINE 200 MG TABLET PO ×3 (00:47→20:40)
[2021-03-05] MEDS: LEVOTHYROXINE 125 MCG TABLET PO (06:20)
[2021-03-05] MEDS: MYCOPHENOLATE MOFETIL 500 MG TABLET 1500 MG PO (10:00)
[2021-03-05] MEDS: FUROSEMIDE 20 MG TABLET 40 MG PO (10:01)
[2021-03-05] MEDS: predniSONE 5 MG TABLET 7.5 MG PO (10:01)
--- NOTE | 2021-03-05 10:30 | P.PN_ITS ---
Subjective Subjective Date Patient Seen: 03/05/21 Time Patient Seen: 10:30 Interval history: Patient essentially unchanged. No particular difference over yesterday. Patient is up in halls with staff. Continues to be confused but easily reoriented. No active physical symptoms at this point. Exam Vital Signs (past 8 hours): - 03/05/21 06:47 03/05/21 08:00 Temperature 96.9 F L 97.4 F L Pulse Rate 76 79 Respiratory Rate 16 16 Blood Pressure 122/75 134/82 Pulse Oximetry 98 99 Oxygen Delivery Method Room Air Oxygen Flow Rate 0 Objective Labs Result Diagrams: 03/02/21 19:50 03/02/21 19:50 [facility] Medical History Acquired hypothyroidism (09/14/16) Anemia, normocytic normochromic (10/22/16) Atrial fibrillation (08/19/12) Cardiomyopathy (09/03/13) Cellulitis of right ankle (2006) Cervical radiculopathy CHF (congestive heart failure) Chronic neutropenia (06/18/17) Cognitive dysfunction Colon polyps (2005) COPD (chronic obstructive pulmonary disease) Cubital tunnel syndrome on left (2015) Diastolic dysfunction (09/03/13) 0 Hyperlipidemia (10/26/10) 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 (10/26/10) residential current use of anticoagulant therapy (08/19/12) Measles [place] (myocardial infarction) (08/2011) Mumps Neck pain on left side Pancytopenia (2013) Peripheral edema Plasma cell dyscrasia Pulmonary hypertension Shingles (2006) SVT (supraventricular tachycardia) Systemic lupus erythematosus (SLE) in adult 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 Urinary frequency Surgical History History of appendectomy (~1961) History of bone marrow biopsy (01/22/17) History of breast augmentation (~1979) History of cardiac catheterization (08/2011) History of cardioversion (08/2011) History of cardioversion (09/2016) History of colonoscopy with polypectomy (08/20/16) History of esophagogastroduodenoscopy (EGD) (08/20/16) History of inguinal hernia repair History of permanent cardiac pacemaker placement (2011) History of ventral hernia repair S/P cubital tunnel release (2015) S/P total abdominal hysterectomy and bilateral salpingo-oophorectomy (1984) Status post tonsillectomy and adenoidectomy Family History Father CAD (coronary artery disease) 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 Acute coronary syndrome Arteriosclerosis Atherosclerosis Brother Hearing deficit Brother Cancer Gout Mother No problems noted. Family/Other Cancer Social History household members: spouse Smoking Status: Never smoker Assessment & Plan Assessment & Plan narrative: Patient's medical issues continue to be stable. No reason to make any changes in medication etcetera. Vital signs are stable etcetera. I agree with Plan for perhaps something like respite care at an appropriate facility once that can be found and engaged. I have reviewed the notes from care management and agree with that. I also spoke with patient's spouse yesterday. He likely is not going to be able to provide primary caregiving assistance to the patient for several weeks at a minimum. Therefore the absence of friends or family who can fill in that role some sort of facility for respite care or least temporary placement make sense Note: Greater than 20 minutes total time was spent on day of service, evaluating the patient on the floor, including examining the patient, discussing clinical course with clinical and nursing staff, reviewing clinical course in the computer, preparing documentation and writing orders for continued management of care, discussing status with family as appropriate, reviewing plans for the next 24 hours with both patient/family and nursing staff as appropriate. Time Spent With Patient Critical Care time: I spent a total of [] minutes of critical care time on this patient's care today; this time is exclusive of procedural time. Quality VTE Deep Vein Thrombosis/Pulmonary Embolism Present on Admission: No
--- NOTE | 2021-03-05 14:59 | CM.DPNOTE ---
DCP: This marketing planner is assisting with finding respite care for patient. Called [facility] and spoke to Kiana in admissions. She is willing to come over to assess patient on Saturday, if no other options are available. She indicated that the cost is $500.00 for initial assessment, which is non-refundable, and $250.00 per day. Let her know that care management can follow up with her tomorrow if no other place is secured. Called [facility] in [place]. Their phone number is: [phone]. There was no answer or voice mail. Called [facility] in [place]. Spoke to guard supervisor who indicated that they do have beds. Was transferred over to their admission liasonColleen. Her phone number is: [phone]. Asked her to call back for further information. Called [facility]. Spoke to Denice in admissions. She stated, they do have memory care and respite beds. She indicated that their locked unit is full, but they have a secure guard in their assisted living/memory care unit. She stated that the cost is $195.00 per day, with $2,730.00 as total deposit for the first two weeks. Faxed her over the referral. She indicated, they can possibly take her tomorrow, she will discuss with her supervisor mapping. Cece Hargrove RN/Farm Equipment Maintenance Supervisor
--- NOTE | 2021-03-05 15:11 | CM.DPC ---
DCP Respite Stay SW followed up with previously contacted Memory Care Units that might have admissions staff today Saturday. SW contacted the following: [facility]- no admission staff today but they will review tomorrow Mon. [facility]- currently no openings, full. [facility]: Spoke to Porsche and discussed pt and needs and faxed requested clinicals to fax [phone] but she will need to confirm tomorrow Mon if their opening is already spoken for with a deposit or if they have an opening before confirming if they can accept. DCP RN also kindly placing calls to additional Memory Care Units that have not been contacted yet (see her note from today) and facilities will be contacted again tomorrow at the start of the week with more staff available at facilities. Plan: SW to follow closely for ongoing search for Respite Stay at Memory Care while pt's spouse is admitted for medical needs at [facility]. PAUL Pace
--- NOTE | 2021-03-05 15:56 | PT.IPTN ---
Physical Therapy Treatment Note M2 PT-IP Current Condition Start: 03/04/21 12:37 Freq: NEEDED Status: Active Protocol: Document 03/04/21 10:40 AB (Rec: 03/04/21 12:52 AB [email or web address]) Physical Therapy Current Condition Current Condition Evaluation Date 03/04/21 Treatment Diagnosis adult failure to thrive; difficulty in walking Onset Date 03/03/21 M3 PT-IP Subjective Start: 03/04/21 12:37 Freq: NEEDED Status: Active Protocol: Document 03/05/21 15:45 LJ (Rec: 03/05/21 15:56 LJ [id number]) Subjective Physical Therapy Visit Type Type Treatment Note Visit Start Time 15:18 Visit Stop Time 15:45 Total Visit Minutes 27 Number of DISEASE CONTROL INSPECTOR Visits 1 Physical Therapy Visit Comments Patient Comments agreeable to do PT M4 PT-IP Mobility and Gait Start: 03/04/21 12:37 Freq: NEEDED Status: Active Protocol: Document 03/05/21 15:45 LJ (Rec: 03/05/21 15:56 LJ [id number]) PT-Bed Mobility Assessment Supine to Sit Supine to Sit Standby Assistance Sit to Supine Sit to Supine Standby Assistance PT-Transfer Assessment Sit to and From Stand Sit to and from Stand Standby Assistance,1 Person Assistance,Use of Upper Extremities Equipment Transfer Assistive Device Gait Belt,Straight Cane Orthotic/Prosthetic Devices or Brace: No Transfers Transfer Destination Bed Transfer Technique Stand Step Pivot Transfer Ability Level of Assist Standby Assistance,Contact Guard Assistance,Use of Upper Extremities Comments Mobility Comments Pt ambulated in hallway ~300' with SPC initially SBA but began to be slightly unsteady and not using cane for support . Pt thinks the color changes on the floor tiles are stairs and will reach for the rail for support. With cueing, she was able to navigate the transition only one time lifting her foot as if stepping up when walking from light abilio to dark abilio. Pt returned to room where nurse took over care. Gait Assessment Gait Gait Assistance Required: Standby Assistance,Contact Guard Assist Distance (Feet) 300 Able to Maintain Weight Bearing Status Yes During Gait Assistive Devices Assistive Device Gait Belt,Straight Cane Orthotic/Prosthetic Devices or Brace: No Gait Deviations General Gait Pattern Antalgic,Decreased Stride Length,Decreased Feet Clearance Factors Limiting Gait Function Factors Limiting Gait Function Decreased Activity Tolerance, Decreased Strength,Difficulty Following Directions,Poor Balance,Poor Safety Awareness M5 PT-IP Objective Assessments Start: 03/04/21 12:37 Freq: NEEDED Status: Active Protocol: Document 03/04/21 10:40 AB (Rec: 03/04/21 12:52 AB [email or web address]) Orientation Orientation/Cognition Level of Alertness Confusional State Orientation Name Safety Awareness Decreased Safety Awareness Memory Description Short Term Impaired,Correction Impaired Gross Range of Motion Lower Extremity ROM Assessment Within Functional Limits Strength Lower Extremity Strength Assessment Bilaterally Impaired Hip 4-/5 Knee 3+/5 Muscle Tone Muscle Tone WNL Yes M6 PT-IP Treatment Start: 03/04/21 12:37 Freq: NEEDED Status: Active Protocol: Document 03/05/21 15:45 LJ (Rec: 03/05/21 15:56 LJ [id number]) Physical Therapy Treatment Education Education Provided Safety M7 PT-IP Assessment and Plan Start: 03/04/21 12:37 Freq: NEEDED Status: Active Protocol: Document 03/05/21 15:45 LJ (Rec: 03/05/21 15:56 LJ [id number]) PT Summary Assessment and Plan Potential Rehabilitation Potential Fair Status of Condition at Evaluation Stable Summary Impairments Pain,ROM,Strength,Balance, Coordination,Sensation,Tone, Cognition,Bed Mobility, Transfers,Gait,Activity Tolerance Assessment Summary Pt requires SBA to CGA for ambulation using SPC. Needs cueing when transitioning from dark to light abilio because she thinks there is a step. She will require assistance at home for safety due to diagnosis of dementia. Goals Bed Mobility Goal Independent Transfer Goal Independent,Cane Gait Goal Independent,Cane Gait Distance 250 Other Goals up/down 4 steps 1 rail + cane mod I Days to Meet Goals 5 Frequency of Treatment Frequency Of Treatment Once a Day Treatment Plan Physical Therapy Treatment Plan Gait Training,Therapeutic Exercise,Balance Retraining, Discharge Planning, Neuromuscular Re-ed, Coordination Retraining Precautions Other Precautions falls Recommendations To Nursing Amount of Assist Needed 1 Person Assist Discharge Recommendations PT Discharge Recommendations Home with 24/7 Assist Available,Home Health Other Discharge Recommendations home with 24/7 supervision due to safety/ LONGTERM
[2021-03-05] MEDS: MYCOPHENOLATE MOFETIL 500 MG TABLET 1000 MG PO (17:08)
[2021-03-05] MEDS: WARFARIN 1 MG TABLET 3 MG PO (17:08)
--- NOTE | 2021-03-05 23:21 | PC.NURSE ---
Patient is oriented to self, birthdate and place. Is forgetful and impulsive, doesn't remember to use call light. Breath sounds CTA with RA sat of 97%. HRR. Denied nausea. BT present and is passing flatus. Gets up to urinate frequently but denies dysuria; has been incontinent of urine at times. Urine is clear, pale yellow. Is able to move self in bed and is up to bathroom with cane and SBA. Denied pain. Skin on bilateral LE is dark black/brown and skin is dry and scaly; per MD is her normal. Fall risk score is high and bed alarm is activated.
[2021-03-06 04:30] VITALS: BP 118/81; PULSE 73; RESP 18; TEMP 36.6; O2SAT 96
[2021-03-06] MEDS: LEVOTHYROXINE 125 MCG TABLET PO (05:47)
--- NOTE | 2021-03-06 07:47 | PM.PN.1 ---
Subjective Subjective Date Patient Seen: 03/06/21 Time Patient Seen: 07:47 Interval history: Patient has had an uneventful couple of days. Nothing new or different Care management staff working on finding respite care wall patient's spouse is unable to provide care in a hopefully local memory care unit or similar. Exam Vital Signs (past 8 hours): - 03/06/21 04:30 Temperature 97.9 F Pulse Rate 73 Respiratory Rate 18 Blood Pressure 118/81 Pulse Oximetry 96 Oxygen Delivery Method Room Air Oxygen Flow Rate 0 Objective Labs Result Diagrams: 03/02/21 19:50 03/02/21 19:50 [facility] Medical History Acquired hypothyroidism (09/14/16) Anemia, normocytic normochromic (10/22/16) Atrial fibrillation (08/19/12) Cardiomyopathy (09/03/13) Cellulitis of right ankle (2006) Cervical radiculopathy CHF (congestive heart failure) Chronic neutropenia (06/18/17) Cognitive dysfunction Colon polyps (2005) COPD (chronic obstructive pulmonary disease) Cubital tunnel syndrome on left (2015) Diastolic dysfunction (09/03/13) 0 Hyperlipidemia (10/26/10) 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 (10/26/10) longterm current use of anticoagulant therapy (08/19/12) Measles IN (myocardial infarction) (08/2011) Mumps Neck pain on left side Pancytopenia (2013) Peripheral edema Plasma cell dyscrasia Pulmonary hypertension Shingles (2006) SVT (supraventricular tachycardia) Systemic lupus erythematosus (SLE) in adult 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 Urinary frequency Surgical History History of appendectomy (~1961) History of bone marrow biopsy (01/22/17) History of breast augmentation (~1979) History of cardiac catheterization (08/2011) History of cardioversion (08/2011) History of cardioversion (09/2016) History of colonoscopy with polypectomy (08/20/16) History of esophagogastroduodenoscopy (EGD) (08/20/16) History of inguinal hernia repair History of permanent cardiac pacemaker placement (2011) History of ventral hernia repair S/P cubital tunnel release (2015) S/P total abdominal hysterectomy and bilateral salpingo-oophorectomy (1984) Status post tonsillectomy and adenoidectomy Family History Father CAD (coronary artery disease) 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 Acute coronary syndrome Arteriosclerosis Atherosclerosis Brother Hearing deficit Brother Cancer Gout Mother No problems noted. Family/Other Cancer Social History household members: spouse Smoking Status: Never smoker Assessment & Plan Assessment & Plan narrative: Patient is medically stable. I will check a protime today, since she was on the low side with an INR 1.3 upon admission When an appropriate accepting facility can be found she can be discharged, in my opinion There will be no change in her home medications, unless there is need for some change in her warfarin dosing based on her INR. This seems unlikely but will await result. Note: Greater than 20 minutes total time was spent on day of service, evaluating the patient on the floor, including examining the patient, discussing clinical course with clinical and nursing staff, reviewing clinical course in the computer, preparing documentation and writing orders for continued management of care, discussing status with family as appropriate, reviewing plans for the next 24 hours with both patient/family and nursing staff as appropriate. Quality VTE Deep Vein Thrombosis/Pulmonary Embolism Present on Admission: No
[2021-03-06 08:00] VITALS: BP 126/80; PULSE 79; RESP 18; TEMP 36.4; O2SAT 98
[2021-03-06] MEDS: predniSONE 5 MG TABLET 7.5 MG PO (09:37)
[2021-03-06] MEDS: MAGNESIUM OXIDE 400 MG TABLET PO (09:37)
[2021-03-06] MEDS: MYCOPHENOLATE MOFETIL 500 MG TABLET 1500 MG PO (09:37)
[2021-03-06] MEDS: SPIRONOLACTONE 25 MG TABLET 12.5 MG PO (09:37)
[2021-03-06 09:38] VITALS: BP 126/80
[2021-03-06] MEDS: METOPROLOL ER 50 MG TABLET PO (09:38)
[2021-03-06] MEDS: PANTOPRAZOLE DR 40 MG TABLET PO (09:42)
[2021-03-06] MEDS: FUROSEMIDE 20 MG TABLET 40 MG PO (09:42)
[2021-03-06] MEDS: HYDROXYCHLOROQUINE 200 MG TABLET PO (09:45)
--- NOTE | 2021-03-06 10:05 | CM.DPC ---
Addendum entered by Cece Hargrove R.N. 03/06/21 13:32: Faxed over medication sheets, DC Summary, vaccination information to [facility], med sheets are pending MD signature. Denice at [facility] was hoping that some of her pm meds can be given before she leaves. According to nurseGabrielle, they can give 1700 meds, but not 1900 meds. Added this information to face sheet before faxing. Addendum entered by Cece Hargrove R.N. 03/06/21 11:55: Called Denice back at [facility] to follow up if she had reached spouse. Stated, she was able to contact spouse and get information over the phone from his hospital room. Denice indicated that they can accept patient today, they have arranged [facility] greens picker for [address]. Called Dr. Hurst over at [facility], and updated him requesting orders, COVID test, as well as med orders and indication in DC summary for patient to go to assisted living. Asked Tara, medical billing assistant, to look up vaccination information. Will then fax it over to [facility]. Patient's friend has been visiting. Nurse, Gabrielle, updating her. Addendum entered by Cece Hargrove R.N. 03/06/21 10:31: Denice at [facility] called back and stated, she was unable to get in touch with patient's . HIM TECH notes indicate that patient is in room 411 at [facility]. She will attempt to call his room to speak to him about rates. Denice also indicated, they can transport patient. Cece Hargrove RN/Canceling Machine Operator Original Note: DCP Cont: Spoke to Denice in admissions at [facility] [place]. Confirmed, they can accept patient, may be able to accept today, depends upon transportation, and if they can get in touch with regarding payment. She will call this vacation planner back, and will also see if they provide transportation for assisted living patients. P: DCP to work on discharge. If [facility] is able to take patient today, will call Dr. Hurst for orders. Was also informed that patient had friends that may be able to transport her there. Cece Hargrove RN/Canceling Machine Operator
--- NOTE | 2021-03-06 10:45 | PT-IP ANOTE ---
Attempted to see pt at 10:45, pt refused PT today due to reported stomach ache. When asked if she would participate in PT later today, she refused again stating My stomach hurts and I would like to rest today, but I will try tomorrow.
--- NOTE | 2021-03-06 11:56 | P.DS_ITS ---
History of Present Illness History of Present Illness Date Patient Seen: 03/06/21 Time Patient Seen: 11:56 Chief complaint: dementia, lupus, needs help Narrative: 70-year-old female well known to me with complex medical history including probable systemic lupus erythematosus, severe pulmonary hypertension resulting in significant cardiac issues severe COPD causing the pulmonary hypertension an element of dementia. She has been home alone as her (who is also my patient) sustained a pathologic fracture of his femur and is hospitalized elsewhere and has been for over a week. Patient's spouse asked friends to check on patient she was transported [facility]. In the ER she was evaluated found to be actually okay seem to be stable from a medical standpoint but clearly the conditions in the home suggest that she is not appropriate to be left alone at home to care for self independently. She is admitted for care while efforts are made to find appropriate living arrangements for patient. Patient herself has very little insight into much of this. She seems to know that her had broke his leg but seems to think he is at home but then she seems to know he is in a hospital somewhere in that she has been alone for a while. This is pretty much her baseline Discharge Providers Provider Date of admission: 03/03/21 15:17 Discharge Date: 03/06/21 Primary care physician: Sky Hurst MD Consults: 03/03/21 17:21 Consult to Discharge Planning Routine Comment: Consult to Physical Therapy Evaluate & Treat Comment: Physician Instructions: Evaluate and Treat Discharge provider: Sky Hurst MD Summary Hospital Course Discharge Diagnosis: 1. Failure to thrive 2. Dementia 3. Severe peripheral edema in 4. Systemic lupus erythematosus 5. Pulmonary hypertension with cor pulmonale 5. COPD 6. 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 7. Hyperlipidemia 8. Chronic atrial fibrillation 9. Long-term use of an oral anticoagulant 10. Cardiomyopathy with ejection fraction 30% 11. Cardiac diastolic dysfunction 12. acquired hypothyroidism Hospital Course: Patient was admitted via emergency department after being found at home. She did not have any real complaints medically seem to be quite stable Her primary caregiver who is her spouse was unable to provide care to his own medical issues and patient requires 24/7 care and monitoring with medications etcetera. She also has some significant cognitive dysfunction/dementia intent to wonder on her own as well. She was admitted to the hospital in managed and cared for in hospital setting for several days until appropriate safe discharge plan and or facility was established This was discussed with patient and with her spouse who is in agreement that she would require 24/7 care in his absence Patient is felt to be medically stable and ready for discharge as of the morning of 06 March 2021 Status at Discharge Cognitive/behavioral status at discharge: at baseline, confused Functional status at discharge: independent ambulation Overall status at discharge: patient is back to baseline Exam Vital Signs (past 8 hours): - 03/06/21 04:30 03/06/21 08:00 03/06/21 09:38 Temperature 97.9 F 97.5 F L Pulse Rate 73 79 Respiratory Rate 18 18 Blood Pressure 118/81 126/80 126/80 Pulse Oximetry 96 98 Oxygen Delivery Method Room Air Oxygen Flow Rate 0 Objective Labs Result Diagrams: 03/02/21 19:50 03/02/21 19:50 [facility] Medical History Acquired hypothyroidism (09/14/16) Anemia, normocytic normochromic (10/22/16) Atrial fibrillation (08/19/12) Cardiomyopathy (09/03/13) Cellulitis of right ankle (2006) Cervical radiculopathy CHF (congestive heart failure) Chronic neutropenia (06/18/17) Cognitive dysfunction Colon polyps (2005) COPD (chronic obstructive pulmonary disease) Cubital tunnel syndrome on left (2015) Diastolic dysfunction (09/03/13) 0 Hyperlipidemia (10/26/10) 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 (10/26/10) 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/12) Measles DC (myocardial infarction) (08/2011) Mumps Neck pain on left side Pancytopenia (2013) Peripheral edema Plasma cell dyscrasia Pulmonary hypertension Shingles (2006) SVT (supraventricular tachycardia) Systemic lupus erythematosus (SLE) in adult 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 Urinary frequency Surgical History History of appendectomy (~1961) History of bone marrow biopsy (01/22/17) History of breast augmentation (~1979) History of cardiac catheterization (08/2011) History of cardioversion (08/2011) History of cardioversion (09/2016) History of colonoscopy with polypectomy (08/20/16) History of esophagogastroduodenoscopy (EGD) (08/20/16) History of inguinal hernia repair History of permanent cardiac pacemaker placement (2011) History of ventral hernia repair S/P cubital tunnel release (2015) S/P total abdominal hysterectomy and bilateral salpingo-oophorectomy (1984) Status post tonsillectomy and adenoidectomy Family History Father CAD (coronary artery disease) 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 Acute coronary syndrome Arteriosclerosis Atherosclerosis Brother Hearing deficit Brother Cancer Gout Mother No problems noted. Family/Other Cancer Social History household members: spouse Smoking Status: Never smoker Discharge Assessment & Plan Assessment and Plan Plan of Treatment: To assisted living for 22/10 care more of a respite until primary caregiver (patient's spouse) is available to provide care again Discharge Plan Discharge Plan Patient Disposition: Home Discharge orders & Medications Prescriptions: Continued furosemide 20 mg tablet 40 mg PO QAM Qty: 180 3RF Hold Instructions: Home Medication placed on hold at Doctor's office warfarin 3 mg tablet See Rx Instructions .ROUTE .COMPLEX Qty: 100 6RF Dose Instruction: take 1 tablet by mouth once daily Rx Instructions: Take 1.5mg (1/2 tab) Saturday and Saturday and 3mg all other days levothyroxine [Synthroid] 125 mcg tablet 125 mcg PO QDAY Qty: 90 3RF omeprazole 40 mg capsule,delayed release(DR/EC) 40 mg PO BID Qty: 180 1RF magnesium oxide 400 mg (241.3 mg magnesium) tablet 400 mg PO BID Qty: 60 3RF hydroxychloroquine 200 mg tablet 200 mg PO BID Qty: 180 4RF spironolactone 25 mg tablet 12.5 mg PO BID 0RF metoprolol succinate 100 mg tablet extended release 24 hr 50 mg PO BID Qty: 180 3RF sildenafil 100 mg tablet 100 mg PO TID 0RF Rx Instructions: hold for SBP <100 prednisone 5 mg Tablet 7.5 mg PO DAILY 0RF mycophenolate mofetil 500 mg Tablet See Rx Instructions .ROUTE .COMPLEX 0RF Rx Instructions: Take 3 tabs in the morning and 2 tabs in the evening gabapentin 300 mg Capsule 600 mg PO BID PRN (Reason: Pain, Mild) 0RF lovastatin 20 mg tablet 20 mg PO BEDTIME 0RF Rx Instructions: take 1 tablet by mouth EACH NIGHT Follow up/Referrals: Sky Hurst MD [Primary Care Provider] - Discharge Health Status Multidrug resistant organism: No MDRO Diet/Activity/Treatments Diet: Diet as Tolerated Discharge Data Primary Care Provider: Sky Hurst Attending Provider: Sky Hurst Quality VTE Deep Vein Thrombosis/Pulmonary Embolism Present on Admission: No
[2021-03-06] MEDS: SILDENAFIL 20 MG TABLET 100 MG PO (12:04)
[2021-03-06 13:52] LABS: COVID19 -Nasal RAPID Negative (Negative)
--- NOTE | 2021-03-06 15:38 | CM.DPC ---
SW recieved a call from Roberta at [facility] apologizing for the confusion with the pt's admission to their SENIOR CARE/Memory Care Unit and they have spoken to their NETWORK ANNOUNCER and gotten an RN for this afternoon to admit the pt for Respite Stay and they have maintained the scheduled transport with [facility] at 1615 to their facility. [facility] received payment from pt's spouse and they confirm they have all needed clinicals and meds and d/c pwk. Roberta very apologetic regarding the confusion between their senior network administrator Mariam and staff. PAUL Pace
--- NOTE | 2021-03-06 16:04 | PC.NURSE ---
Pt is packed up and ready for discharge to [facility]. Went over Pt report, answered all questions and notified Panfilo Sanderson that Pt's home meds were being sent with her belongings. No further questions.
[2021-03-06] MEDS: WARFARIN 1 MG TABLET 3 MG PO (16:20)
[2021-03-06] MEDS: MYCOPHENOLATE MOFETIL 500 MG TABLET 1000 MG PO (16:20)
--- NOTE | 2021-03-06 16:25 | PC.NURSE ---
Pt. out via w/c by [facility] with all belongings.
== END 2021-03-06 16:27 | disposition home or self-care (01) ==
LOC: ED 19:18 → AC 03-03 15:17
PROVIDERS: Admitting Provider Internal Medicine; Emergency Provider Emergency Medicine; PCP Internal Medicine; Referring Provider Emergency Medicine; Visit Provider Internal Medicine
DX: R62.7 Adult failure to thrive (principal); F03.90 Unspecified dementia, unspecified severity, without behavioral disturbance, psychotic disturbance, mood disturbance, and anxiety; Z91.83 Wandering in diseases classified elsewhere; R41.0 Disorientation, unspecified; M32.9 Systemic lupus erythematosus, unspecified; J44.9 Chronic obstructive pulmonary disease, unspecified; I27.29 Other secondary pulmonary hypertension; E78.5 Hyperlipidemia, unspecified; I48.20 Chronic atrial fibrillation, unspecified; Z79.01 Long term (current) use of anticoagulants; I42.9 Cardiomyopathy, unspecified; E03.9 Hypothyroidism, unspecified; R60.9 Edema, unspecified; Z20.822 Contact with and (suspected) exposure to COVID-19
CPT/HCPCS: 36415; 70450; 80053; 81003; 85025; 85610; 87635; 97116; 97161; 99217; 99219; 99224; 99283; 99284; C9803; G0378